=== PATIENT | male | born 1960 | race Caucasian/White ===

== ENCOUNTER 2016-06-08 14:56 | Emergency (ER) | payer BC ==
[~2016-06-08] VITALS: Ht 185.4 cm; Wt 93.9 kg
[~2016-06-08 14:56] MED LIST: ASPI81TA28 PO; ATOR-22 PO; ATV5X PO; CHOL200010 PO; FIBER PO; PANT40TA PO; SERT25TA PO; TRAM-10 PO
[2016-06-08 15:00] VITALS: TEMP 36.7; Ht 185.4 cm; Wt 93.9 kg
[2016-06-08] MEDS ORDERED: ONDANSETRON INJ 2 MG/ML 2 ML VIAL IV STA (15:25)
[2016-06-08] MEDS ORDERED: SODIUM CHLORIDE 0.9% 1000ML 1,000 ML IV STA (15:25)
[2016-06-08] MEDS ORDERED: MoRPHine SULFATE 10 MG/ML CARP/VIAL IV STA (15:25)
[2016-06-08] MEDS ORDERED: KETOROLAC TROMETHAMINE 30 MG/ML VIAL IV STA (15:25)
[2016-06-08] MEDS ORDERED: TAMSULOSIN HCL 0.4 MG CAP PO ONE (15:30)
[2016-06-08 15:35] LABS: BASO % 0.2 %; BASO ABS # 0.01 K/uL (0-0.2); COMPLETE YES; EOS % 1.6 %; HEMATOCRIT 42.1 % (42-52); IG% 0.2 %; LYMPH % 29.2 %; LYMPH ABS # 1.69 K/uL (1.2-3.4); MEAN CELL VOLUME 91.9 fL (80-100); MEAN CORPUSCULAR HEMOGLOBIN 32.1 pg (25-34); MEAN CORPUSCULAR HGB CONC 34.9 g/dl (32-36); MEAN PLATELET VOLUME 10.1 fL (7.4-10.4); MONO % 10.6 %; NEUT % 58.2 %; PLATELET COUNT 222 K/uL (130-400); RED BLOOD COUNT 4.58 M/uL (4.7-6.1); WHITE BLOOD COUNT 5.78 K/uL (4.8-10.8)
[2016-06-08 15:42] LABS: ALT/SGPT 30 U/L (12-78); AST/SGOT 22 U/L (15-37); BLOOD UREA NITROGEN 28 mg/dl (7-18); BUN/CREATININE RATIO 23.6 (10-20); CALCIUM 9.1 mg/dl (8.5-10.1); CARBON DIOXIDE 27 mmol/L (21-32); CHLORIDE 104 mmol/L (98-107); GLUCOSE 101 mg/dl (70-99); POTASSIUM 4.2 mmol/L (3.5-5.1); SODIUM 139 mmol/L (136-145)
[2016-06-08 15:44] LABS: URINE APPEARANCE CLEAR (CLEAR); URINE BILIRUBIN NEG (NEG); URINE COLOR YELLOW; URINE EPITHELIAL CELL AUTO 0-5 /lpf (0-5); URINE NITRITE NEG (NEG); URINE PH 7.5 (4.5-7.5); URINE SPECIFIC GRAVITY 1.017 (1.000-1.030); UROBILINOGEN NEG (NEG); ZZUR CULT IF INDIC CLEAN CATCH NO
[2016-06-08 15:45] LABS: ALKALINE PHOSPHATASE 69 U/L (45-117)
[2016-06-08] MEDS ORDERED: LPT/20 PO (15:46)
[2016-06-08] MEDS ORDERED: PRT/40 PO (15:46)
[2016-06-08] MEDS ORDERED: ZLF/50 PO (15:46)
[2016-06-08 15:47] LABS: MANUAL MICROSCOPIC REQUIRED? NO; REVIEW REQ? NO
--- NOTE | 2016-06-08 16:10 | DIAGNOSTIC IMAGING REPORT ---
CT SCAN OF THE ABDOMEN AND PELVIS WITHOUT IV CONTRAST CLINICAL HISTORY: Left flank pain. COMPARISON STUDY: Abdominal CT dated 02/02/2011. TECHNIQUE: CT scan of the abdomen and pelvis is performed from the lung bases to the proximal femora. Images are reviewed in the axial, sagittal, and coronal planes. IV contrast was not administered for this examination. Automated dose control exposure was utilized. CT DOSE: 1090.16 mGycm FINDINGS: Lung bases: The heart is enlarged and without pericardial effusion. The coronary arteries are densely calcified. There is a 4 mm pleural-based nodule at the left lung base. This is unchanged from 2011 and of doubtful significance. No airspace consolidation or pleural effusion is identified. There is dependent atelectasis. There is a small hiatal hernia. Liver: The unenhanced liver is normal in size, contour, and attenuation. There is no intrahepatic biliary ductal dilatation. Gallbladder: Unremarkable. Spleen: Normal in size and attenuation. Pancreas: Unremarkable. Adrenal glands: Unremarkable. Kidneys: The unenhanced kidneys are normal in size and without hydronephrosis. There are at least 3 nonobstructing left renal calculi and at least 5 nonobstructing right renal calculi measuring up to 3 mm. There is no evidence of contour deforming renal mass lesion. Abdominal vasculature: The abdominal aorta is normal in course and caliber noting mild atherosclerotic calcification. Bowel: The small bowel and colon are normal in course and caliber. There is mild sigmoid diverticulosis without CT evidence of acute diverticulitis. The appendix is not clearly identified. Peritoneum: There is no intraperitoneal free air or abdominal ascites. Lymphadenopathy: None. Pelvic viscera: The bladder, prostate, and seminal vesicles are normal as visualized.. Surgical clips are noted along the spermatic cord. Skeletal structures: No lytic or blastic lesions are seen. There is mild/moderate lumbar sacral spondylosis. IMPRESSION: 1. There are no acute infectious or inflammatory findings in the abdomen or pelvis. 2. Bilateral nonobstructing renal calculi are identified. There is no obstructing renal calculus or hydronephrosis seen. 3. Cardiomegaly. 4. Colonic diverticulosis without CT evidence of acute diverticulitis. 5. Additional findings as above. Electronically signed by: Eduardo Eubanks M.D. 06/08/2016 4:08 PM Dictated Date/Time: 06/08/2016 4:00 PM
[2016-06-08] MEDS ORDERED: DICY20TA35 PO (16:31)
--- NOTE | 2016-06-08 16:32 | EMERGENCY ROOM VISIT NOTE ---
History First contact with patient: 15:05 Chief Complaint: ABDOMINAL PAIN Stated Complaint: KIDNEY STONE Nursing Triage Summary: pt reports abdominal pain LLflank X 3 days , denies NV , or urinary sx History of Present Illness The patient is a 56 year old male who presents to the Emergency Room with complaints of left flank pain intermittently over the past 3 days. The patient denies any urinary symptoms of frequency, urgency, dysuria or hematuria. The patient admits to slight nausea but denies any vomiting. The patient does admit to having loose bowel movements 3-4 day for the past several days. The patient does admit that he has IBS it is under a lot of stress lately. This is not that abnormal for the patient. He has had colonoscopies in the past without any evidence of diverticulosis. The patient denies any fever. Review of Systems 10 system review was performed and was negative unless stated otherwise history of present illness. Past Medical/Surgical History Medical Problems: (1) Esophageal dysmotility (2) Gastroesophageal reflux disease (3) Kidney stone Social History Smoking Status: Former Smoker Alcohol Use: occasionally Marital Status: Occupation Status: employed Current/Historical Medications Scheduled Aspirin (Aspirin Ec), 81 MG PO QPM Atorvastatin (Atorvastatin Calcium), 20 MG PO HS Cholecalciferol (Vitamin D), 2,000 INTER.UNIT PO QAM Fiber Laxative (Fiber Laxative), 1 TAB PO DAILY Pantoprazole (Pantoprazole Sodium), 40 MG PO BID Sertraline HCl (Sertraline HCl), 50 MG PO DAILY Scheduled PRN Lorazepam (Lorazepam), 0.5 MG PO DAILY PRN for Anxiety Allergies Coded Allergies: Sulfa Antibiotics (Verified Allergy, Severe, SEVERE HIVES/ITCHING, 06/08/16 ) Physical Exam Vital Signs Date Time Temp Pulse Resp B/P Pulse Ox O2 Delivery O2 Flow Rate FiO2 06/08/16 15:00 36.7 67 18 178/106 98 Room Air Physical Exam GENERAL: 56-year-old white male appears in no acute distress. MENTAL Status: Alert and oriented 3. EYES: No icterus noted MOUTH: Mucosa is moist NECK: Supple, no lymphadenopathy noted. No carotid bruits noted. LUNGS: Clear auscultation without wheezes rales or rhonchi. CARDIAC: Regular rate and rhythm without murmur. Pulses is full and equal throughout. BACK: No CVA tenderness noted. ABDOMEN: Positive bowel sounds all 4 quadrants. Soft, nontender to palpation without organomegaly or masses. EXTREMITIES: No cyanosis or edema noted. Medical Decision & Procedures ER Provider Diagnostic Interpretation: CT SCAN OF THE ABDOMEN AND PELVIS WITHOUT IV CONTRAST CLINICAL HISTORY: Left flank pain. COMPARISON STUDY: Abdominal CT dated 02/02/2011. TECHNIQUE: CT scan of the abdomen and pelvis is performed from the lung bases to the proximal femora. Images are reviewed in the axial, sagittal, and coronal planes. IV contrast was not administered for this examination. Automated dose control exposure was utilized. CT DOSE: 1090.16 mGycm FINDINGS: Lung bases: The heart is enlarged and without pericardial effusion. The coronary arteries are densely calcified. There is a 4 mm pleural-based nodule at the left lung base. This is unchanged from 2010 and of doubtful significance. No airspace consolidation or pleural effusion is identified. There is dependent atelectasis. There is a small hiatal hernia. Liver: The unenhanced liver is normal in size, contour, and attenuation. There is no intrahepatic biliary ductal dilatation. Gallbladder: Unremarkable. Spleen: Normal in size and attenuation. Pancreas: Unremarkable. Adrenal glands: Unremarkable. Kidneys: The unenhanced kidneys are normal in size and without hydronephrosis. There are at least 3 nonobstructing left renal calculi and at least 5 nonobstructing right renal calculi measuring up to 3 mm. There is no evidence of contour deforming renal mass lesion. Abdominal vasculature: The abdominal aorta is normal in course and caliber noting mild atherosclerotic calcification. Bowel: The small bowel and colon are normal in course and caliber. There is mild sigmoid diverticulosis without CT evidence of acute diverticulitis. The appendix is not clearly identified. Peritoneum: There is no intraperitoneal free air or abdominal ascites. Lymphadenopathy: None. Pelvic viscera: The bladder, prostate, and seminal vesicles are normal as visualized.. Surgical clips are noted along the spermatic cord. Skeletal structures: No lytic or blastic lesions are seen. There is mild/moderate lumbar sacral spondylosis. IMPRESSION: 1. There are no acute infectious or inflammatory findings in the abdomen or pelvis. 2. Bilateral nonobstructing renal calculi are identified. There is no obstructing renal calculus or hydronephrosis seen. 3. Cardiomegaly. 4. Colonic diverticulosis without CT evidence of acute diverticulitis. 5. Additional findings as above. Electronically signed by: Eduardo Eubanks M.D. 06/08/2016 4:08 PM Laboratory Results 06/08/16 15:00 Red Blood Count 4.58, Mean Corpuscular Volume 91.9, Mean Corpuscular Hemoglobin 32.1, Mean Corpuscular Hemoglobin Concent 34.9, Mean Platelet Volume 10.1, Neutrophils (%) (Auto) 58.2, Lymphocytes (%) (Auto) 29.2, Monocytes (%) (Auto) 10.6, Eosinophils (%) (Auto) 1.6, Basophils (%) (Auto) 0.2, Neutrophils # (Auto ) 3.37, Lymphocytes # (Auto) 1.69, Monocytes # (Auto) 0.61, Eosinophils # (Auto ) 0.09, Basophils # (Auto) 0.01 06/08/16 15:00 Test 06/08/16 15:00 06/08/16 15:10 White Blood Count 5.78 K/uL (4.8-10.8) Red Blood Count 4.58 M/uL (4.7-6.1) Hemoglobin 14.7 g/dL (14.0-18.0) Hematocrit 42.1 % (42-52) Mean Corpuscular Volume 91.9 fL (80-100) Mean Corpuscular Hemoglobin 32.1 pg (25-34) Mean Corpuscular Hemoglobin Concent 34.9 g/dl (32-36) Platelet Count 222 K/uL (130-400) Mean Platelet Volume 10.1 fL (7.4-10.4) Neutrophils (%) (Auto) 58.2 % Lymphocytes (%) (Auto) 29.2 % Monocytes (%) (Auto) 10.6 % Eosinophils (%) (Auto) 1.6 % Basophils (%) (Auto) 0.2 % Neutrophils # (Auto) 3.37 K/uL (1.4-6.5) Lymphocytes # (Auto) 1.69 K/uL (1.2-3.4) Monocytes # (Auto) 0.61 K/uL (0.11-0.59) Eosinophils # (Auto) 0.09 K/uL (0-0.5) Basophils # (Auto) 0.01 K/uL (0-0.2) RDW Standard Deviation 42.0 fL (36.4-46.3) RDW Coefficient of Variation 12.5 % (11.5-14.5) Immature Granulocyte % (Auto) 0.2 % Immature Granulocyte # (Auto) 0.01 K/uL (0.00-0.02) Anion Gap 8.0 mmol/L (3-11) Est Creatinine Clear Calc Drug Dose 75.8 ml/min Estimated GFR () 76.8 Estimated GFR (Non- 66.3 BUN/Creatinine Ratio 23.6 (10-20) Calcium Level 9.1 mg/dl (8.5-10.1) Total Bilirubin 0.3 mg/dl (0.2-1) Direct Bilirubin < 0.1 mg/dl (0-0.2) Aspartate Amino Transf (AST/SGOT) 22 U/L (15-37) Alanine Aminotransferase (ALT/SGPT) 30 U/L (12-78) Alkaline Phosphatase 69 U/L (45-117) Total Protein 7.7 gm/dl (6.4-8.2) Albumin 4.2 gm/dl (3.4-5.0) Lipase 284 U/L (73-393) Urine Color YELLOW Urine Appearance CLEAR (CLEAR) Urine pH 7.5 (4.5-7.5) Urine Specific Allyn 1.017 (1.000-1.030) Urine Protein NEG (NEG) Urine Glucose (UA) NEG (NEG) Urine Ketones NEG (NEG) Urine Occult Blood NEG (NEG) Urine Nitrite NEG (NEG) Urine Bilirubin NEG (NEG) Urine Urobilinogen NEG (NEG) Urine Leukocyte Esterase TRACE (NEG) Urine WBC (Auto) 1-5 /hpf (0-5) Urine RBC (Auto) 0-4 /hpf (0-4) Urine Hyaline Casts (Auto) 0 /lpf (0-5) Urine Epithelial Cells (Auto) 0-5 /lpf (0-5) Urine Bacteria (Auto) NEG (NEG) Medications Administered Medications (Trade) Dose Ordered Sig/Humphrey Route Start Time Stop Time Status Last Admin Dose Admin Sodium Chloride (Nss 1000ml) 1,000 ml @ 999 mls/hr Q1H1M STAT IV 06/08/16 15:25 06/08/16 16:25 DC 06/08/16 15:43 999 MLS/HR Ketorolac Tromethamine (Toradol Inj) 30 mg NOW STAT IV 06/08/16 15:25 06/08/16 15:27 DC 06/08/16 15:43 30 MG Morphine Sulfate (MoRPHine SULFATE INJ) 6 mg NOW STAT IV 06/08/16 15:25 06/08/16 15:27 DC 06/08/16 15:43 6 MG Ondansetron HCl (Zofran Inj) 4 mg NOW STAT IV 06/08/16 15:25 06/08/16 15:27 DC 06/08/16 15:42 4 MG Tamsulosin HCl (Flomax Cap) 0.4 mg NOW ONCE PO 06/08/16 15:30 06/08/16 15:31 DC 06/08/16 15:43 0.4 MG ED Course The patient was evaluated. IV access was obtained. The patient was given 1 L normal saline wide-open. CBC and differential, renal profile, LFTs and lipase levels was ordered. Urinalysis was ordered. The patient was given Toradol 30 mg IV, morphine 6 mg IV, Zofran 4 mg IV and Flomax 0.4 mg by mouth. The patient 's labs are reviewed. The patient's BUN was slightly elevated otherwise labs are unremarkable. Urinalysis was negative. CT stone study was ordered and interpreted by the radiologist as above without any evidence of ureteral calculi or hydronephrosis. There were multiple renal calculi bilaterally. There is diverticulosis without any evidence of diverticulitis. The patient was informed of the findings. The patient was discharged home in stable condition. Medical Decision Differential diagnosis include UTI, pyelonephritis, ureteral calculi, diverticulitis, colitis, IBS Impression Primary Impression: IBS (irritable bowel syndrome) Additional Impression: Dehydration Departure Information Dispostion Home / Self-Care Condition GOOD Prescriptions Dicyclomine Hcl (BENTYL) 20 Mg Tab 20 MG PO Q8 for Diarrhea, #20 TAB Prov: Nikki Bishop PA-C 06/08/16 Referrals RV. Alvarenga MD (PCP) Forms Call Back Authorization, HOME CARE DOCUMENTATION FORM, IMPORTANT VISIT INFORMATION Patient Instructions Dehydration, My [facility] Additional Instructions Push fluids. Take Bentyl as needed for cramping and diarrhea. If symptoms persist or worsen, follow-up with your family doctor. Problem Qualifiers Primary Impression: IBS (irritable bowel syndrome) Irritable bowel syndrome type: with diarrhea Qualified Codes: K58.0 - Irritable bowel syndrome with diarrhea
[2016-06-08 16:35] VITALS: BP 154/90; PULSE 68; O2SAT 97
== END 2016-06-08 16:42 | disposition home or self-care (01) ==
LOC: C.EDB 14:57 → C.EDC 16:42
DX: K58.9 Irritable bowel syndrome, unspecified (principal); E86.0 Dehydration; K21.9 Gastro-esophageal reflux disease without esophagitis; K22.4 Dyskinesia of esophagus; Z87.442 Personal history of urinary calculi; Z79.82 Long term (current) use of aspirin; Z79.899 Other long term (current) drug therapy; Z87.891 Personal history of nicotine dependence; Z88.2 Allergy status to sulfonamides

== ENCOUNTER → 2016-08-10 | Outpatient (CLI) | payer BC ==
[~2016-08-10] MED LIST changes: -ATOR-22 PO; +LPT/20 PO; +ONDA4TAB10 SL; +OXYC1TAB3 PO; -PANT40TA PO; +POLY335019 PO; +PRT/40 PO; -SERT25TA PO; -TRAM-10 PO; +ZLF/50 PO
--- NOTE | 2016-08-10 08:49 | DIAGNOSTIC IMAGING REPORT ---
UPPER GI SERIES AND SMALL BOWEL FOLLOW-THROUGH CLINICAL HISTORY: Abdominal pain. Esophagitis. Hiatal hernia. COMPARISON STUDY: Upper GI series and small bowel follow-through February 25, 2011. FLUOROSCOPY TIME: 3.7 minutes. FINDINGS: 35 fluoroscopic images were obtained. There was mild to moderate esophageal dysmotility. No esophageal stricture was identified. There was mild mucosal irregularity of the mid to distal esophagus. This may reflect esophagitis. No hiatal hernia was identified. No reflux was elicited. Mild gastric fold thickening was noted. Duodenum was normal. Transit time to the cecum was normal at 50 minutes. The terminal ileum was not well visualized on this exam. Jejunal and ileal fold patterns were normal. IMPRESSION: 1. Gastric fold thickening. While nonspecific, this may reflect gastritis. 2. Mild mucosal irregularity the mid to distal esophagus which may reflect esophagitis. No esophageal stricture. 3. No evidence of small bowel obstruction. Normal small bowel fold pattern. 4. Mild to moderate esophageal dysmotility. Electronically signed by: Michael Celis M.D. 08/10/2016 8:48 AM Dictated Date/Time: 08/10/2016 8:45 AM
[2016-08-10 09:43] LABS: ALT/SGPT 29 U/L (12-78); BLOOD UREA NITROGEN 21 mg/dl (7-18); BUN/CREATININE RATIO 17.5 (10-20); CALCIUM 9.5 mg/dl (8.5-10.1); CARBON DIOXIDE 30 mmol/L (21-32); CHLORIDE 103 mmol/L (98-107); CHOLESTEROL 227 mg/dl (0-200); GLUCOSE 103 mg/dl (70-99); POTASSIUM 4.3 mmol/L (3.5-5.1); SODIUM 139 mmol/L (136-145)
[2016-08-10 09:46] LABS: ALB/GLOB RATIO 1.2 (0.9-2); ALKALINE PHOSPHATASE 69 U/L (45-117); AST/SGOT 25 U/L (15-37); CHOLESTEROL/HDL RATIO 3.7; HDL CHOLESTEROL 61 mg/dl; LDL CHOLESTEROL CALCULATED 111 mg/dl; TRIGLYCERIDES 274 mg/dl (0-150); VERY LOW DENSITY LIPOPROT CALC 55 mg/dl
== END | disposition home or self-care (01) ==
LOC: C.RAD 06:18
PROVIDERS: ATTEND Registered Nurse
DX: K20.9 Esophagitis, unspecified (principal); K44.9 Diaphragmatic hernia without obstruction or gangrene; R05 Cough; R10.13 Epigastric pain; E78.00 Pure hypercholesterolemia, unspecified; K31.89 Other diseases of stomach and duodenum; K22.4 Dyskinesia of esophagus

== ENCOUNTER 2017-01-02 11:40 | Emergency (ER) | payer BC ==
[~2017-01-02] VITALS: Ht 185.4 cm; Wt 91.9 kg
[~2017-01-02 11:40] MED LIST changes: -ONDA4TAB10 SL; -OXYC1TAB3 PO; -POLY335019 PO
[2017-01-02 11:46] VITALS: TEMP 36.9; Ht 185.4 cm; Wt 91.9 kg
[2017-01-02] MEDS ORDERED: SODIUM CHLORIDE 0.9% 1000ML 1,000 ML IV STA (12:08)
[2017-01-02] MEDS ORDERED: ONDANSETRON INJ 2 MG/ML 2 ML VIAL IV STA (12:08)
[2017-01-02] MEDS ORDERED: MoRPHine SULFATE 4 MG/ML 1 ML CARP\\VIAL IV PRN (12:15)
--- NOTE | 2017-01-02 12:17 | EMERGENCY ROOM VISIT NOTE ---
History Report prepared by Reilly: Sharona Guadalupe Under the Supervision of: Awa NavaO. First contact with patient: 12:04 Chief Complaint: ABDOMINAL PAIN Stated Complaint: BLOATING PAIN IN BELLY, NO BM'S Nursing Triage Summary: pt to the ED with c/o abd pain that is all over with chills and last BM was yesterday pt is concerned bc he feels like he did before with a previous bowel obstruction History of Present Illness The patient is a 56 year old male who presents to the Emergency Room with complaints of constant abdominal pain beginning yesterday. The patient states that he has a history of bowel obstruction and has been hospitalized 2 times before. He reports that he has been having similar symptoms to his previous obstruction and has had body aches and chills. He denies any rectal bleeding, vomiting, and constipation. The patient states that he had a restless night last night and has been having dry heaves that are not unusual for him due to his history of esophageal varices. He complains of a productive cough and notes that he had 2 bowel movements yesterday and none today. He reports a history of appendicitis and hernia repair. Source of History: patient Onset: last night Position: abdomen Timing: constant Associated Symptoms: + chills, No vomiting Note: Pt complains of aches. He denies any constipation and rectal pain. Review of Systems See HPI for pertinent positives & negatives. A total of 10 systems reviewed and were otherwise negative. Past Medical & Surgical Medical Problems: (1) Esophageal dysmotility (2) Gastroesophageal reflux disease (3) Kidney stone Family History No pertinent family history stated. Social History Smoking Status: Former Smoker Alcohol Use: occasionally Marital Status: Occupation Status: employed Current/Historical Medications Scheduled Aspirin (Aspirin Ec), 81 MG PO QPM Atorvastatin (Atorvastatin Calcium), 20 MG PO HS Cholecalciferol (Vitamin D), 2,000 INTER.UNIT PO QAM Fiber Laxative (Fiber Laxative), 1 TAB PO DAILY Ondasetron Odt (Zofran Odt), 4 MG SL Q6H Pantoprazole (Pantoprazole Sodium), 40 MG PO BID Polyethylene Glycol 3350 (Miralax), 17 GM PO DAILY Sertraline HCl (Sertraline HCl), 50 MG PO DAILY Scheduled PRN Lorazepam (Lorazepam), 0.5 MG PO DAILY PRN for Anxiety Oxycodone Immediate Rel Tab (Roxicodone Ir), 1-2 TAB PO Q4H PRN for Severe Pain Allergies Coded Allergies: Sulfa Antibiotics (Verified Allergy, Severe, SEVERE HIVES/ITCHING, 06/08/16 ) Physical Exam Vital Signs Date Time Temp Pulse Resp B/P (MAP) Pulse Ox O2 Delivery O2 Flow Rate FiO2 01/02/17 13:50 84 18 153/98 97 01/02/17 12:29 84 01/02/17 11:46 36.9 99 18 171/102 98 Physical Exam GENERAL: Patient is awake, alert, and in no acute distress. Patient is resting comfortably and showing no signs of anxiety EYES: The conjunctivae are clear. The pupils are round and reactive. EARS, NOSE, MOUTH AND THROAT: The nose is without any evidence of any deformity. Mucous membranes are moist tongue is midline NECK: The neck is nontender and supple. RESPIRATORY: Lung sounds diminished throughout, scattered rhonchi, no tachypnea or conversational dyspnea. CARDIOVASCULAR: Regular rate and rhythm noted there no murmurs rubs or gallops normal S1 normal S2 GASTROINTESTINAL: The abdomen is moderately distended but soft. Bowel sounds are present in all quadrants. Abdomen is nontender PELVIS: The Pelvis is stable. No tenderness to palpation is noted. BACK: No midline tenderness or or step-off noted range of motion in flexion extension as well as rotation no signs of muscle spasm noted MUSCULOSKELETAL/EXTREMITIES: There is no evidence of gross deformity full range of motion is noted in the hips and shoulders SKIN: There is no obvious evidence of any rash. There are no petechiae, pallor or cyanosis noted. NEUROLOGIC: Patient is awake alert and oriented x3 Medical Decision & Procedures ER Provider Diagnostic Interpretation: Radiology results as stated below per my review and radiologist interpretation: SINGLE VIEW CHEST FINDINGS: An AP, portable, upright chest radiograph is compared to study dated 10/22/2014 and correlated with chest CT dated 05/20/2015. The examination is degraded by portable technique and patient rotation. The cardiomediastinal silhouette is unremarkable. The lungs and pleural spaces are clear. No pneumothorax is seen. The bony thorax is grossly intact. IMPRESSION: No active disease in the chest. Electronically signed by: Eduardo Eubanks M.D. 01/02/2017 12:57 PM Dictated Date/Time: 01/02/2017 12:[address] SCAN OF THE ABDOMEN AND PELVIS WITHOUT IV CONTRAST FINDINGS: Lung bases: The heart is top normal in size and without pericardial effusion. There are coronary artery calcifications. There is a 4 mm pleural-based nodule at the left lung base on image #14. This is unchanged from 2011 and of doubtful significance. No airspace consolidation or pleural effusion is identified. There is dependent atelectasis. There is a small hiatal hernia. Liver: The unenhanced liver is normal in size, contour, and attenuation. There is no intrahepatic biliary ductal dilatation. Gallbladder: Unremarkable. Spleen: Normal in size and attenuation. Pancreas: Unremarkable. Adrenal glands: Unremarkable. Kidneys: The unenhanced kidneys are normal in size and without hydronephrosis. There are at least 2 nonobstructing left renal calculi and at least 4 nonobstructing right renal calculi measuring up to 3 mm. There is no evidence of contour deforming renal mass lesion. Abdominal vasculature: The abdominal aorta is normal in course and caliber noting mild to moderate atherosclerotic calcification. Bowel: The small bowel and colon are normal in course and caliber. There is mild sigmoid diverticulosis without CT evidence of acute diverticulitis. The appendix is not identified and reported surgically absent. Peritoneum: There is no intraperitoneal free air or abdominal ascites. Lymphadenopathy: None. Pelvic viscera: The bladder, prostate, and seminal vesicles are normal as visualized.. Surgical clips are noted along the spermatic cord. Skeletal structures: No lytic or blastic lesions are seen. There is mild to moderate lumbosacral spondylosis. IMPRESSION: 1. Suboptimal examination without oral and IV contrast. 2. There are no acute infectious or inflammatory findings in the abdomen or pelvis. 3. There are small bilateral nonobstructing renal calculi. 4. Colonic diverticulosis without CT evidence of acute diverticulitis. 5. Additional findings as above. Electronically signed by: Eduardo Eubanks M.D. 01/02/2017 12:52 PM Dictated Date/Time: 01/02/2017 12:43 PM Laboratory Results 01/02/17 12:21 Red Blood Count 4.38, Mean Corpuscular Volume 93.8, Mean Corpuscular Hemoglobin 33.1, Mean Corpuscular Hemoglobin Concent 35.3, Mean Platelet Volume 10.1, Neutrophils (%) (Auto) 78.1, Lymphocytes (%) (Auto) 10.2, Monocytes (%) (Auto) 11.0, Eosinophils (%) (Auto) 0.2, Basophils (%) (Auto) 0.3, Neutrophils # (Auto ) 4.60, Lymphocytes # (Auto) 0.60, Monocytes # (Auto) 0.65, Eosinophils # (Auto ) 0.01, Basophils # (Auto) 0.02 01/02/17 12:21 Test 01/02/17 12:21 01/02/17 13:05 White Blood Count 5.89 K/uL (4.8-10.8) Red Blood Count 4.38 M/uL (4.7-6.1) Hemoglobin 14.5 g/dL (14.0-18.0) Hematocrit 41.1 % (42-52) Mean Corpuscular Volume 93.8 fL (80-100) Mean Corpuscular Hemoglobin 33.1 pg (25-34) Mean Corpuscular Hemoglobin Concent 35.3 g/dl (32-36) Platelet Count 174 K/uL (130-400) Mean Platelet Volume 10.1 fL (7.4-10.4) Neutrophils (%) (Auto) 78.1 % Lymphocytes (%) (Auto) 10.2 % Monocytes (%) (Auto) 11.0 % Eosinophils (%) (Auto) 0.2 % Basophils (%) (Auto) 0.3 % Neutrophils # (Auto) 4.60 K/uL (1.4-6.5) Lymphocytes # (Auto) 0.60 K/uL (1.2-3.4) Monocytes # (Auto) 0.65 K/uL (0.11-0.59) Eosinophils # (Auto) 0.01 K/uL (0-0.5) Basophils # (Auto) 0.02 K/uL (0-0.2) RDW Standard Deviation 41.1 fL (36.4-46.3) RDW Coefficient of Variation 12.0 % (11.5-14.5) Immature Granulocyte % (Auto) 0.2 % Immature Granulocyte # (Auto) 0.01 K/uL (0.00-0.02) Anion Gap 7.0 mmol/L (3-11) Est Creatinine Clear Calc Drug Dose 75.8 ml/min Estimated GFR () 76.8 Estimated GFR (Non- 66.3 BUN/Creatinine Ratio 13.8 (10-20) Calcium Level 9.2 mg/dl (8.5-10.1) Total Bilirubin 1.3 mg/dl (0.2-1) Direct Bilirubin 0.3 mg/dl (0-0.2) Aspartate Amino Transf (AST/SGOT) 25 U/L (15-37) Alanine Aminotransferase (ALT/SGPT) 34 U/L (12-78) Alkaline Phosphatase 68 U/L (45-117) Total Protein 7.5 gm/dl (6.4-8.2) Albumin 4.1 gm/dl (3.4-5.0) Lipase 178 U/L (73-393) Urine Color YELLOW Urine Appearance CLEAR (CLEAR) Urine pH 6.0 (4.5-7.5) Urine Specific [place] 1.012 (1.000-1.030) Urine Protein NEG (NEG) Urine Glucose (UA) NEG (NEG) Urine Ketones NEG (NEG) Urine Occult Blood NEG (NEG) Urine Nitrite NEG (NEG) Urine Bilirubin NEG (NEG) Urine Urobilinogen NEG (NEG) Urine Leukocyte Esterase NEG (NEG) Laboratory results per my review. Medications Administered Medications (Trade) Dose Ordered Sig/Humphrey Route Start Time Stop Time Status Last Admin Dose Admin Sodium Chloride 1,000 ml @ 999 mls/hr Q1H1M STAT IV 01/02/17 12:08 01/02/17 13:08 DC 01/02/17 12:25 999 MLS/HR Ondansetron HCl (Zofran Inj) 4 mg NOW STAT IV 01/02/17 12:08 01/02/17 12:09 DC 01/02/17 12:29 4 MG Morphine Sulfate (MoRPHine SULFATE INJ) 4 mg Q15M PRN IV 01/02/17 12:15 01/02/17 14:35 DC 01/02/17 12:30 4 MG ED Course 1204: The patient was evaluated in room C7. A complete history and physical examination were performed. 1208: Zofran Inj 4mg IV, NSS 1,000 ml @ 999 mls/hr IV. 1215: Morphine Sulfate 4mg PRN IV pain. 1329: I reevaluated and updated the patient. 1335: Upon reevaluation, the patient is doing well. I discussed the results and treatment plan with the patient. He verbalized agreement of the treatment plan. The patient was discharged home. Medical Decision Differential diagnosis: Etiologies such as appendicitis, diverticulitis, PUD, biliary pathology, UTI, pancreatitis, obstruction, mesenteric ischemia, aortic pathology, infections, inflammatory bowel disease, renal colic, as well as others were entertained. Nursing notes reviewed. The patient is a 56-year-old male who presented to the emergency department for an evaluation of abdominal pain. The patient states he's noticed abdominal distention and has a history of small bowel obstruction in the past. The patient 's abdominal exam was not consistent with an acute surgical abdomen. On CT he does not have signs of obstruction but does have some degree of constipation. He was treated with IV fluids IV pain medicine and IV antiemetics. On subsequent reevaluation he was feeling much better. I discussed the patient's laboratory and radiographic studies with him. He was encouraged to rest and follow-up with his family doctor this week for reevaluation. Otherwise she was encouraged to continue all medications as prescribed and return to the emergency department immediately if symptoms change worsen or the need arises. [place] Drug Monitoring Program Search Results: patient reviewed within database, no issues identified Medication Reconcilliation Current Medication List: was personally reviewed by me Blood Pressure Screening Patient's blood pressure: Elevated blood pressure Blood pressure disposition: Elevated BP felt to be situational Impression Primary Impression: Abdominal pain Scribe Attestation The scribe's documentation has been prepared under my direction and personally reviewed by me in its entirety. I confirm that the note above accurately reflects all work, treatment, procedures, and medical decision making performed by me. Departure Information Dispostion Being Evaluated By Hospitalist Prescriptions Polyethylene Glycol 3350 (MIRALAX) 1 Pow Pow 17 GM PO DAILY, #527 GM Prov: John Worrell, DO 01/02/17 Ondasetron Odt (ZOFRAN ODT) 4 Mg Tab 4 MG SL Q6H for Nausea, #15 TAB Prov: John Worrell, DO 01/02/17 Oxycodone Immediate Rel Tab (ROXICODONE IR) 5 Mg Tab 1-2 TAB PO Q4H Y for Severe Pain, #24 TAB Prov: John Worrell, DO 01/02/17 Referrals No Doctor, Assigned (PCP) Forms Call Back Authorization, HOME CARE DOCUMENTATION FORM, IMPORTANT VISIT INFORMATION Patient Instructions Abdominal Pain, My [facility] Additional Instructions Call your family to schedule a follow-up appointment. Continue all medications as prescribed. Drink plenty clear liquids. Return to the emergency department immediately if symptoms change worsen or the need arises. Problem Qualifiers Primary Impression: Abdominal pain Abdominal location: generalized Qualified Codes: R10.84 - Generalized abdominal pain
[2017-01-02 12:32] LABS: BASO % 0.3 %; BASO ABS # 0.02 K/uL (0-0.2); COMPLETE YES; EOS % 0.2 %; HEMATOCRIT 41.1 % (42-52); IG% 0.2 %; LYMPH % 10.2 %; MEAN CELL VOLUME 93.8 fL (80-100); MEAN CORPUSCULAR HEMOGLOBIN 33.1 pg (25-34); MEAN CORPUSCULAR HGB CONC 35.3 g/dl (32-36); MEAN PLATELET VOLUME 10.1 fL (7.4-10.4); NEUT % 78.1 %; PLATELET COUNT 174 K/uL (130-400); RED BLOOD COUNT 4.38 M/uL (4.7-6.1); WHITE BLOOD COUNT 5.89 K/uL (4.8-10.8)
[2017-01-02 12:53] LABS: BUN/CREATININE RATIO 13.8 (10-20); CALCIUM 9.2 mg/dl (8.5-10.1); CREATININE 1.2 mg/dl (0.60-1.40); POTASSIUM 3.9 mmol/L (3.5-5.1)
--- NOTE | 2017-01-02 12:53 | DIAGNOSTIC IMAGING REPORT ---
CT SCAN OF THE ABDOMEN AND PELVIS WITHOUT IV CONTRAST CLINICAL HISTORY: Bloating. Generalized abdominal pain. COMPARISON STUDY: Abdominal CT dated 06/08/2016 and 02/02/2011. TECHNIQUE: CT scan of the abdomen and pelvis is performed from the lung bases to the proximal femora. Images are reviewed in the axial, sagittal, and coronal planes. IV contrast was not administered for this examination as per the referring clinician. Note that the examination was performed in suboptimal fashion without oral and IV contrast. Automated dose control exposure was utilized. CT DOSE: 475.87 mGy.cm FINDINGS: Lung bases: The heart is top normal in size and without pericardial effusion. There are coronary artery calcifications. There is a 4 mm pleural-based nodule at the left lung base on image #14. This is unchanged from 2011 and of doubtful significance. No airspace consolidation or pleural effusion is identified. There is dependent atelectasis. There is a small hiatal hernia. Liver: The unenhanced liver is normal in size, contour, and attenuation. There is no intrahepatic biliary ductal dilatation. Gallbladder: Unremarkable. Spleen: Normal in size and attenuation. Pancreas: Unremarkable. Adrenal glands: Unremarkable. Kidneys: The unenhanced kidneys are normal in size and without hydronephrosis. There are at least 2 nonobstructing left renal calculi and at least 4 nonobstructing right renal calculi measuring up to 3 mm. There is no evidence of contour deforming renal mass lesion. Abdominal vasculature: The abdominal aorta is normal in course and caliber noting mild to moderate atherosclerotic calcification. Bowel: The small bowel and colon are normal in course and caliber. There is mild sigmoid diverticulosis without CT evidence of acute diverticulitis. The appendix is not identified and reported surgically absent. Peritoneum: There is no intraperitoneal free air or abdominal ascites. Lymphadenopathy: None. Pelvic viscera: The bladder, prostate, and seminal vesicles are normal as visualized.. Surgical clips are noted along the spermatic cord. Skeletal structures: No lytic or blastic lesions are seen. There is mild to moderate lumbosacral spondylosis. IMPRESSION: 1. Suboptimal examination without oral and IV contrast. 2. There are no acute infectious or inflammatory findings in the abdomen or pelvis. 3. There are small bilateral nonobstructing renal calculi. 4. Colonic diverticulosis without CT evidence of acute diverticulitis. 5. Additional findings as above. Electronically signed by: Eduardo Eubanks M.D. 01/02/2017 12:52 PM Dictated Date/Time: 01/02/2017 12:43 PM
--- NOTE | 2017-01-02 12:59 | DIAGNOSTIC IMAGING REPORT ---
SINGLE VIEW CHEST CLINICAL HISTORY: Generalized abdominal pain. FINDINGS: An AP, portable, upright chest radiograph is compared to study dated 10/22/2014 and correlated with chest CT dated 05/20/2015. The examination is degraded by portable technique and patient rotation. The cardiomediastinal silhouette is unremarkable. The lungs and pleural spaces are clear. No pneumothorax is seen. The bony thorax is grossly intact. IMPRESSION: No active disease in the chest. Electronically signed by: Eduardo Eubanks M.D. 01/02/2017 12:57 PM Dictated Date/Time: 01/02/2017 12:57 PM
[2017-01-02 13:21] LABS: URINE APPEARANCE CLEAR (CLEAR); URINE BILIRUBIN NEG (NEG); URINE COLOR YELLOW; URINE NITRITE NEG (NEG); URINE SPECIFIC GRAVITY 1.012 (1.000-1.030); UROBILINOGEN NEG (NEG)
[2017-01-02 13:24] LABS: MANUAL MICROSCOPIC REQUIRED? NO; REVIEW REQ? NO
[2017-01-02] MEDS ORDERED: POLY335019 PO (13:30)
[2017-01-02] MEDS ORDERED: OXYC1TAB3 PO (13:30)
[2017-01-02] MEDS ORDERED: ONDA4TAB10 SL (13:30)
[2017-01-02 13:50] VITALS: BP 153/98; PULSE 84; O2SAT 97
== END 2017-01-02 13:57 | disposition home or self-care (01) ==
LOC: C.EDB 11:44 → C.EDC 13:57
DX: R10.84 Generalized abdominal pain (principal); K59.00 Constipation, unspecified; I85.00 Esophageal varices without bleeding; K22.4 Dyskinesia of esophagus; K21.9 Gastro-esophageal reflux disease without esophagitis; Z87.442 Personal history of urinary calculi; Z87.891 Personal history of nicotine dependence; Z79.82 Long term (current) use of aspirin

== ENCOUNTER → 2017-01-10 | Outpatient (CLI) | payer BC ==
[~2017-01-10] MED LIST changes: +ONDA4TAB10 SL; +OXYC1TAB3 PO; +POLY335019 PO
--- NOTE | 2017-01-10 16:28 | DIAGNOSTIC IMAGING REPORT ---
RIGHT RIBS UNILATERAL WITH PA CHEST HISTORY: 56 years-old Male J20.9 Acute [id number] Right COMPARISON: Chest radiograph 01/02/2017 TECHNIQUE: Frontal view of the chest with 4 views of the right ribs FINDINGS: Cardiomediastinal and hilar silhouettes are within normal limits. There is no pneumothorax, pleural effusion or focal airspace consolidation. The bones appear to be grossly intact. Degenerative changes involve the bilateral shoulders. No acute displaced rib fracture identified. IMPRESSION: 1. No acute cardiopulmonary process. 2. No acute displaced rib fracture or pneumothorax. The above report was generated using voice recognition software. It may contain grammatical, syntax or spelling errors. Electronically signed by: Colin Albright M.D. 01/10/2017 4:27 PM Dictated Date/Time: 01/10/2017 4:24 PM
--- NOTE | 2017-01-10 16:32 | DIAGNOSTIC IMAGING REPORT ---
RIGHT SCAPULA HISTORY: 56 years-old Male M25.511 Right shoulder [id number] Right COMPARISON: Chest and rib radiographs of same day TECHNIQUE: 2 views of the right scapula. FINDINGS: The scapula, imaged right humerus and right clavicle are intact without acute fracture or dislocation. Moderate degenerative changes are present within the right AC joint with mild/moderate glenohumeral osteoarthritis. Imaged lung cunningham are clear. IMPRESSION: 1. No acute bony abnormality of the right scapula. 2. Degenerative changes about the right shoulder as above. The above report was generated using voice recognition software. It may contain grammatical, syntax or spelling errors. Electronically signed by: Colin Albright M.D. 01/10/2017 4:30 PM Dictated Date/Time: 01/10/2017 4:27 PM
== END | disposition home or self-care (01) ==
LOC: C.RAD1850 15:18
PROVIDERS: ATTEND Physician Assistant
DX: J20.9 Acute bronchitis, unspecified (principal); M25.511 Pain in right shoulder; M19.011 Primary osteoarthritis, right shoulder

== ENCOUNTER → 2017-01-18 | Outpatient (CLI) | payer BC ==
--- NOTE | 2017-01-18 18:27 | DIAGNOSTIC IMAGING REPORT ---
UPPER EXT JOINT WITHOUT CLINICAL HISTORY: 56 years-old Male with M25.511 Right shoulder painRight shoulder/scapular pain, tendern. Acute right shoulder pain without reported trauma. Initial exam. COMPARISON: Right scapula radiographs 01/10/2017. TECHNIQUE: Multiplanar, multi sequence MRI of the right shoulder was performed without intravenous contrast. FINDINGS: ROTATOR CUFF: No high-grade partial or full-thickness tear of the rotator cuff identified. Low-grade partial-thickness articular sided tear involves the mid insertional fibers of the supraspinatus, 6 x 8 mm in AP and transverse dimension. There is moderate supraspinatus tendinosis. There is severe tendinosis of the subscapularis tendon with low-grade partial thickness tearing noted involving the superior insertional fibers. Muscle signal and morphology is within normal limits without atrophy. BICEPS TENDON: There is moderate tendinosis of the intra-articular long head biceps tendon as seen on image 11 of the sagittal T2 series. There is high-grade split tear of the long head biceps tendon which originates as it enters the intertubercular groove and extends distally approximately 3.2 cm as seen on image 6 of the sagittal T2 series. Mild surrounding soft tissue edema is noted. LABRUM: There is fraying and likely chronic appearing tearing of the anterior superior and posterior inferior labrum without significant soft tissue edema, displaced fragment or para-labral cyst. GLENOHUMERAL JOINT: There is mild glenohumeral osteoarthritis without intra-articular loose body identified. Small joint effusion. ACROMIOCLAVICULAR JOINT: Moderate to severe osteoarthritis with capsular hypertrophy and marginal spurring. Trace subacromial/subdeltoid bursitis. OUTLET SPACES: The suprascapular notch and quadrilateral space are without obstructing or space occupying lesions. BONE MARROW: Subcortical cysts are noted involving the anterior and posterior facets of the greater tuberosity. Subcortical cystic changes are also noted involving the glenoid superiorly and base of the coracoid process SOFT TISSUES: The periarticular soft tissues are unremarkable. IMPRESSION: 1. Acute high-grade split tear of the long head biceps tendon originates just proximal to the intertubercular groove extending distally 3.2 cm. There is moderate tendinosis of the intra-articular long head biceps tendon. 2. Low-grade partial thickness articular sided tear of the mid insertional supraspinatus tendon with background moderate tendinosis. 3. Severe tendinosis of the subscapularis tendon with low-grade partial-thickness tear noted along the superior insertional fibers. 4. Mild glenohumeral osteoarthritis. 5. Moderate to severe acromioclavicular osteoarthritis with trace subacromial/subdeltoid bursitis. The above report was generated using voice recognition software. It may contain grammatical, syntax or spelling errors. Electronically signed by: Colin Albright M.D. 01/18/2017 6:26 PM Dictated Date/Time: 01/18/2017 6:04 PM
== END | disposition home or self-care (01) ==
LOC: C.MRI 16:45
PROVIDERS: ATTEND Physician Assistant
DX: S46.111A Strain of muscle, fascia and tendon of long head of biceps, right arm, initial encounter (principal); S46.811A Strain of other muscles, fascia and tendons at shoulder and upper arm level, right arm, initial encounter; X58.XXXA Exposure to other specified factors, initial encounter; M19.011 Primary osteoarthritis, right shoulder

== ENCOUNTER → 2017-02-10 | Outpatient (CLI) | payer BC ==
[2017-02-10 17:19] LABS: ALT/SGPT 35 U/L (12-78); BLOOD UREA NITROGEN 22 mg/dl (7-18); CALCIUM 9.1 mg/dl (8.5-10.1); CARBON DIOXIDE 26 mmol/L (21-32); CHLORIDE 106 mmol/L (98-107); GLUCOSE 136 mg/dl (70-99); POTASSIUM 4.2 mmol/L (3.5-5.1); SODIUM 140 mmol/L (136-145)
[2017-02-10 17:22] LABS: ALB/GLOB RATIO 1.2 (0.9-2); ALKALINE PHOSPHATASE 65 U/L (45-117); AST/SGOT 24 U/L (15-37)
== END | disposition home or self-care (01) ==
LOC: C.LAB1850 15:00
PROVIDERS: ATTEND Internal Medicine
DX: E78.00 Pure hypercholesterolemia, unspecified (principal)

== ENCOUNTER → 2017-04-01 | Outpatient (CLI) | payer BC ==
[~2017-04-01] MED LIST changes: +PANT40TA2 PO; -PRT/40 PO
--- NOTE | 2017-04-01 10:18 | DIAGNOSTIC IMAGING REPORT ---
(BARIUM SWALLOW) ESOPHAGUS CLINICAL HISTORY: K22.4 Esophageal [id number] Juares's [id number] COMPARISON STUDY: 06/16/2006 FLUOROSCOPY TIME: 1.0 minutes. FINDINGS: Patient initiated swallowing function well. Esophagus demonstrates a somewhat diminished motility. There is moderate gastroesophageal reflux. No significant mucosal lesions are appreciated. Patient ingested the barium tablet easily which passed easily to the stomach. IMPRESSION: 1. Normal swallowing function. 2. Moderately diminished esophageal motility with mild gastroesophageal reflux. The above report was generated using voice recognition software. It may contain grammatical, syntax or spelling errors. Electronically signed by: Ish Bishop M.D. 04/01/2017 9:14 AM Dictated Date/Time: 04/01/2017 9:12 AM
[2017-04-01 10:32] LABS: BASO % 0.4 %; BASO ABS # 0.02 K/uL (0-0.2); COMPLETE YES; EOS % 1.5 %; HEMATOCRIT 46.2 % (42-52); IG% 0.2 %; LYMPH % 26.5 %; LYMPH ABS # 1.23 K/uL (1.2-3.4); MEAN CELL VOLUME 96.3 fL (80-100); MEAN CORPUSCULAR HEMOGLOBIN 32.3 pg (25-34); MEAN CORPUSCULAR HGB CONC 33.5 g/dl (32-36); MEAN PLATELET VOLUME 10.9 fL (7.4-10.4); MONO % 8.6 %; NEUT % 62.8 %; PLATELET COUNT 239 K/uL (130-400); WHITE BLOOD COUNT 4.64 K/uL (4.8-10.8)
== END | disposition home or self-care (01) ==
LOC: C.RAD 08:05
PROVIDERS: ATTEND Registered Nurse
DX: K22.4 Dyskinesia of esophagus (principal); K22.70 Barrett's esophagus without dysplasia; K20.9 Esophagitis, unspecified; K21.9 Gastro-esophageal reflux disease without esophagitis

== ENCOUNTER → 2017-04-13 | Outpatient (CLI) | payer BC ==
--- NOTE | 2017-04-13 17:29 | DIAGNOSTIC IMAGING REPORT ---
L-SPINE FLEX/EXT BENDING MIN 6 HISTORY: 56 years-old Male X acute left-sided low back pain with sciatica COMPARISON: CT abdomen and pelvis 01/02/2017 TECHNIQUE: 5 views of the lumbar spine with additional lateral flexion and extension views for a total of 7 images FINDINGS: No acute fracture or subluxation identified. Moderate intervertebral disc space narrowing is seen at T11-T12, L1-L2, L3-L4 and L4-L5. Multilevel endplate spurring and facet arthropathy also noted. There is no subluxation with flexion or extension. No spondylolysis or spondylolisthesis. Mild convex left curvature of the lumbar spine. Mild degenerative changes are seen within the bilateral hips. Calcifications of the pelvis suggest vascular etiology. IMPRESSION: 1. No acute fracture or subluxation of the lumbar spine. 2. Multilevel degenerative changes as above. The above report was generated using voice recognition software. It may contain grammatical, syntax or spelling errors. Electronically signed by: Colin Albright M.D. 04/13/2017 5:28 PM Dictated Date/Time: 04/13/2017 5:25 PM
== END | disposition home or self-care (01) ==
LOC: C.RAD1850 16:31
PROVIDERS: ATTEND Internal Medicine
DX: M54.32 Sciatica, left side (principal)

== ENCOUNTER → 2017-06-22 | Outpatient (CLI) | payer OTHER ==
[~2017-06-22] MED LIST changes: +ELAS-1213 EXT; +HYDR-5688 PO; -LPT/20 PO; +LPT20 PO; -ONDA4TAB10 SL; -OXYC1TAB3 PO; -POLY335019 PO; -ZLF/50 PO
--- NOTE | 2017-06-22 09:03 | DIAGNOSTIC IMAGING REPORT ---
CHEST 2 VIEWS ROUTINE CLINICAL HISTORY: 57 years-old Male presenting with PRE OP TESTING. TECHNIQUE: PA and lateral views of the chest were obtained. COMPARISON: 01/02/2017. FINDINGS: Atherosclerosis of the aortic arch. Cardiac silhouette normal in size. Lungs and pleural spaces clear. Degenerative changes of the thoracic spine. Upper abdomen normal. IMPRESSION: 1. No acute cardiopulmonary disease. Electronically signed by: Carlos Merrill M.D. 06/22/2017 9:01 AM Dictated Date/Time: 06/22/2017 8:57 AM
[2017-06-22 10:44] LABS: INR 0.9 (0.9-1.1); PTT PATIENT 25.2 SECONDS (21.0-31.0)
[2017-06-22 11:07] LABS: HEMATOCRIT 44.1 % (42-52); HEMOGLOBIN 15.3 g/dL (14.0-18.0); MEAN CELL VOLUME 95.5 fL (80-100); MEAN CORPUSCULAR HEMOGLOBIN 33.1 pg (25-34); MEAN CORPUSCULAR HGB CONC 34.7 g/dl (32-36); MEAN PLATELET VOLUME 10.5 fL (7.4-10.4); PLATELET COUNT 226 K/uL (130-400); RED CELL DISTRIBUTION WIDTH CV 12.5 % (11.5-14.5); RED CELL DISTRIBUTION WIDTH SD 42.6 fL (36.4-46.3); WHITE BLOOD COUNT 5.69 K/uL (4.8-10.8)
== END | disposition home or self-care (01) ==
LOC: C.CPL 08:33
PROVIDERS: ATTEND Podiatrist Foot & Ankle Surgery
DX: Z01.812 Encounter for preprocedural laboratory examination (principal); Z01.810 Encounter for preprocedural cardiovascular examination; Z01.818 Encounter for other preprocedural examination

== ENCOUNTER → 2017-06-27 | Day surgery (SDC) | payer BC, OTHER ==
[2017-05-24 13:43] VITALS: Ht 185.4 cm; Wt 88.6 kg
[~2017-06-27] VITALS: Ht 185.4 cm; Wt 88.6 kg
[~2017-06-27] MED LIST changes: +CEFAZOLIN SOD 2000MG/15 ML IV PUSH IV ONE; +DEXAMETHASONE SOD INJ 4 MG/ML VIAL ONE; +FENTANYL CITRATE INJ 50 MCG/1 ML 2 ML VIAL ONE; +LACTATED RINGER'S 1000ML 1,000 ML IV SCH; +LIDOCAINE HCL 1% 20 ML VIAL ONE; +LIDOCAINE HCL 2% 2 ML VIAL (20MG/ML) ONE; +MIDAZOLAM HCL 1 MG/ML 2ML VIAL ONE; +ONDANSETRON INJ 2 MG/ML 2 ML VIAL ONE; +PROPOFOL IV EMULSION 10 MG/ML 20 ML VIAL IV ONE
--- NOTE | 2017-06-27 11:30 | History & Physical Bridge - [place] ---
H&P Re-Evaluation Bridge Note: I have examined the patient, reviewed the History & Physical and in the interval since the performance of the History & Physical I have noted the following changes of clinical significance: No changes noted
--- NOTE | 2017-06-27 11:38 | [facility] Operative Report ---
Operative Report Operative Date Jun 27, 2017. 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 Patient has been seen in the office for the past several years where he did receive local callus care, consisting of debridement and offloading of these lesions, which failed to alleviate his symptoms. Patient is in agreement and wishes to proceed with surgery consisting of condylectomy of his right 3rd and 4th digits. The perioperative indications, planned procedure, possible benefits, risks, complications, and anticipated healing time and management were discussed in detail with the patient. He understands and elects to proceed with surgery. No guarantees were made. All questions have been answered to the patient's satisfaction. Medical clearance has been obtained by the patient's primary care physician. Description of Procedure Under mild sedation, the patient was brought into the OR and placed on the table in the supine position. Final verification of the patient, surgery, and limb designation was performed via the time-out procedure. A pneumatic ankle tourniquet was placed about the patient's right ankle. IV local sedation was then initiated by the anesthesia team. Local block was then administered about the operative sites of the right foot. Following IV sedation and local block, the right foot was scrubbed, prepped and draped in the usual aseptic manner. An Esmarch bandage was used to exsanguinate the patient's right foot and the pneumatic ankle tourniquet was inflated to 250 mmHg. At this time, surgery began as follows: Attention was directed to the dorsomedial aspect of the 3rd digit right foot over the area of the PIP joint where an approximately 1 cm linear longitudinal incision was made. This incision was made just lateral to painful hyperkeratosis. Incision was deepened down to the level of bone taking care to identify and retract all vital neurovascular structures. Upon reaching the PIP joint of the 3rd digit, bright which chalky type substance was identified consistent with gouty tophi. This was easily resected with a rongeur. Once the head of the proximal phalanx and the base of the middle phalanx were identified , the lateral condyle of the base of the proximal phalanx was resected and passed from the operative field using a football bur. All rough edges were then smoothed with a rasp. This procedure was then repeated for the medial aspect of the right 4th digit at the DIP joint. An approximately 1 cm linear longitudinal incision was made. This incision was made just medial to painful hyperkeratosis. Incision was deepened down to the level of bone taking care to identify and retract all vital neurovascular structures. Once the head of the middle phalanx and the base of the proximal phalanx were identified, the medial condyle of the base of the middle phalanx was resected and passed from the using a football bur. At this time, the wounds were flushed with copious amount of NSS. Skin closure was performed using 3-0 nylon in simple fashion. A post-operative dressing consisting of betadine soaked adaptik, 4x4 gauze, kerlix and an you wrap were applied to the right foot. At this time, the pneumatic ankle tourniquet was deflated and prompt hyperemic response was noted to all the digits of the right foot. Patient tolerated the procedure and anesthesia well. He was transferred to the recovery room with vital signs stable and vascular status intact to the right foot. I attest to the content of the Intraoperative Record and any orders documented therein. Any exceptions are noted below.
--- NOTE | 2017-06-27 13:38 | [facility] Post Operative Brief Note ---
Immediate Operative Summary Operative Date Jun 27, 2017. Pre-Operative Diagnosis Right foot corns and callosities, pain Post-Operative Diagnosis same as preop Procedure(s) Performed Right Foot Third And Fourth Digits Surgical Condylectomy Surgeon Dr. Adams Ld Teacher Surgeon(s) none Estimated Blood Loss 2ML Findings Consistent with Post-Op Diagnosis Specimens NONE Anesthesia Type MAC Complication(s) none Disposition Accompanied Pt To Recovery: no
--- NOTE | 2017-06-27 13:46 | Discharge Instructions-[facility]urgCtr ---
Discharge Instructions Date of Service Jun 27, 2017. Visit Reason for Visit: Right Foot Corns And Callosities, Pain Discharge Discharge Diagnosis / Problem: Post-op condylectomy right 3rd and 4th digit Discharge Goals Goal(s): Decrease discomfort, Improve function Activity Recommendations Activity Limitations: as noted below Shower/Bathe: keep incision dry Weightbearing Status: Right partial Rest, ice at the ankle, elevate right foot. Partial or heel weight bearing to right foot as tolerated. Use crutches for assistance with ambulation as needed. Keep dressing clean, dry and intact until post-op visit. Anesthesia . Post Anesthesia Instructions: If you have had General Anesthesia or IV Sedation: * Do not drive today. * Resume driving when surgeon permits. * Do not make important decisions or sign legal documents today. * Call surgeon for: 1. Temperature elevations greater than 101 degrees F. 2. Uncontrollable pain. 3. Excessive bleeding. 4. Persistent nausea and vomiting. 5. Medication intolerance (nausea, vomiting or rash). * For nausea and vomiting use only clear liquids such as: tea, soda, bouillon until nausea subsides, then gradually increase diet as tolerated. * If you have any concerns or questions, call your surgeon's office. If physician is unavailable and it is an emergency, call 911 or go to the nearest emergency room. . Instructions / Follow-Up Instructions / Follow-Up Follow-up within 1 week in the office with Dr. Adams. Diet Recommendations Home Diet: resume previous diet Procedures Procedures Performed: Condylectomy right 3rd digit and right 4th digit Pending Studies Studies pending at discharge: no Medical Emergencies . Who to Call and When: Medical Emergencies: If at any time you feel your situation is an emergency, please call 911 immediately. . Non-Emergent Contact Non-Emergency issues call your: Primary Care Provider . . "Provider Documentation" section prepared by Laina Adams. . [place] Drug Monitoring Program Search Results: patient reviewed within database, no issues identified
[2017-06-27 13:47] VITALS: TEMP 37.2
--- NOTE | 2017-06-27 14:06 | Anesthesia Progress Nt - [facility] ---
Anesthesia Post Op Note Date & Time Jun 27, 2017 at 14:06 Vital Signs Pain Intensity: 0 Vital Signs Past 12 Hours Date Time Temp Pulse Resp B/P (MAP) Pulse Ox O2 Delivery O2 Flow Rate FiO2 06/27/17 13:47 37.2 71 16 159/87 (111) 95 Room Air 06/27/17 11:14 36.7 87 22 133/114 (120) 96 Room Air Notes Mental Status: alert / awake / arousable, participated in evaluation Pt Amnestic to Procedure: Yes Nausea / Vomiting: adequately controlled Pain: adequately controlled Airway Patency, RR, SpO2: stable & adequate BP & HR: stable & adequate Hydration State: stable & adequate Anesthetic Complications: no major complications apparent
[2017-06-27 14:17] VITALS: BP 124/78; PULSE 73; O2SAT 98
--- NOTE | 2017-06-29 14:39 | DIAGNOSTIC IMAGING REPORT ---
SURGICNTR FOOT, 2 VIEWS CLINICAL HISTORY: 57 years-old Male presenting with Post-op portable. TECHNIQUE: Frontal and lateral views of the right foot were obtained. COMPARISON: None. FINDINGS: No acute fracture or malalignment. Mild degenerative changes at the first metatarsophalangeal joint. Postsurgical changes are not immediately apparent. No radiographic soft tissue abnormality. IMPRESSION: No acute osseous injury. Postsurgical changes are not immediately apparent. No priors are available for comparison at this time. Electronically signed by: Carlos Merrill M.D. 06/29/2017 2:38 PM Dictated Date/Time: 06/29/2017 2:36 PM
== END | disposition home or self-care (01) ==
LOC: X.SURG 10:55
PROVIDERS: ATTEND Podiatrist Foot & Ankle Surgery
DX: M1A.9XX1 Chronic gout, unspecified, with tophus (tophi) (principal); L85.9 Epidermal thickening, unspecified; L84 Corns and callosities; F32.9 Major depressive disorder, single episode, unspecified; E78.5 Hyperlipidemia, unspecified; Z88.2 Allergy status to sulfonamides

== ENCOUNTER 2017-07-18 15:52 | Inpatient (IN) | payer OTHER ==
[~2017-07-18] VITALS: Ht 185.4 cm; Wt 94.8 kg
[~2017-07-18 15:52] MED LIST changes: -CEFAZOLIN SOD 2000MG/15 ML IV PUSH IV ONE; -DEXAMETHASONE SOD INJ 4 MG/ML VIAL ONE; -FENTANYL CITRATE INJ 50 MCG/1 ML 2 ML VIAL ONE; -HYDR-5688 PO; -LACTATED RINGER'S 1000ML 1,000 ML IV SCH; -LIDOCAINE HCL 1% 20 ML VIAL ONE; -LIDOCAINE HCL 2% 2 ML VIAL (20MG/ML) ONE; -MIDAZOLAM HCL 1 MG/ML 2ML VIAL ONE; -ONDANSETRON INJ 2 MG/ML 2 ML VIAL ONE; -PROPOFOL IV EMULSION 10 MG/ML 20 ML VIAL IV ONE
--- NOTE | 2017-07-18 16:32 | EMERGENCY ROOM VISIT NOTE ---
ED Visit Note First contact with patient: 16:30 CHIEF COMPLAINT: Abdominal pain HISTORY OF PRESENTING ILLNESS: This is a 57-year-old male who presents to the emergency department with complaint of abdominal pain and bloating. Patient states he has been having some abdominal pain and bloating issues off and on for the past 2-3 weeks, but his symptoms became much more severe today. He does report a history of bowel obstruction in the past, and states this feels somewhat similar to his previous bowel obstructions. Today he has also had some associated chills and body aches. He states he has a chronic cough associated with history of Juares's esophagus, but states that the past 2 days he has been having some phlegm production with cough, and feeling like his cough is slightly worse and a little short of breath. He denies chest pain. He states his abdominal pain has become constant, dull ache with intermittent sharp stabbing pains, nothing makes it better or worse, 8/10. He states that his abdomen is bloated and more distended than normal. He does report that he has had several normal bowel movements today and is still passing gas. He denies any constipation or diarrhea, bloody or black stools recently. He denies headaches, vision changes, neck pain or stiffness, back pain, urinary symptoms, or rash. REVIEW OF SYSTEMS: A complete 10 point review of systems was reviewed with the patient with pertinent positives and negatives as per history of present illness. All else were negative. PAST MEDICAL HISTORY: Reviewed in chart. SOCIAL HISTORY: Lives at home with family. Former smoker, quit 40 years ago. Denies alcohol or recreational drug use. ALLERGIES: Reviewed in chart. PHYSICAL EXAM: CONSTITUTIONAL: Pleasant and cooperative. No acute distress, but does appear uncomfortable and in pain during exam. Mildly dehydrated. HEENT: Normocephalic, atraumatic. Pupils equal, round and reactive to light, EOMI. TMs normal. Pharynx normal. Tacky mucous membranes. NECK: Supple, full active range of motion without discomfort. No cervical adenopathy. RESPIRATORY: Clear to auscultation bilaterally with no wheezing, crackles, rhonchi or stridor. Equal expansion bilaterally. CARDIOVASCULAR: Regular rate and rhythm with no murmurs, rubs or gallops. Normal peripheral perfusion. No edema. GASTROINTESTINAL: Soft, diffusely tender throughout, most tender around the dex -umbilicus and left lower quadrant. Distended abdomen. No rebound tenderness. No palpable masses or HSM. Hypoactive bowel has no CVA tenderness. Sounds present in all quadrants. MUSCULOSKELETAL: Full range of motion of all joints without discomfort. INTEGUMENTARY: No rash or other significant dermatologic conditions noted. NEUROLOGIC: Alert and oriented X 4 with normal affect. Normal strength and sensation in all 4 extremities. No focal neurologic deficits noted. Normal speech. Normal gait observed. ED COURSE AND MEDICAL DECISION MAKING: CC: Patient presenting with complaint of abdominal pain and distention, chills DIFFERENTIAL DIAGNOSIS: Includes, but not limited to small bowel obstruction, ileus, gastroenteritis, gastritis, peptic ulcer disease, colitis, diverticulitis , cholecystitis, cholelithiasis, pancreatitis, intra-abdominal abscess, inflammatory bowel disease, other infectious process including influenza, pneumonia, UTI, among others. INTERPRETATION OF LABS: No leukocytosis, no anemia, mild hyponatremia and hyperglycemia, no other significant electrolyte abnormalities, normal renal function, elevated T bili, liver enzymes otherwise normal, normal lipase. UA negative. Normal lactic acid. Elevated pro calcitonin. Normal ESR, elevated CRP. IMAGING: SINGLE VIEW CHEST CLINICAL HISTORY: Cough and fever. FINDINGS: An AP, portable, upright chest radiograph is compared to study dated 07/05/2017 and correlated with chest CT dated 05/20/2015. The examination is degraded by portable technique and patient rotation. The heart is enlarged. The pulmonary vasculature is noncongested. Bibasilar atelectasis is observed. The lungs and pleural spaces are otherwise clear. No pneumothorax is seen. The bony thorax is grossly intact. IMPRESSION: Cardiomegaly with no acute cardiopulmonary abnormality. ----- ABD/PELVIS IV CONTRAST ONLY CT DOSE: 640.12 mGy.cm HISTORY: Pain eval perf, infectious process, SBO TECHNIQUE: Multiaxial CT images of the abdomen and pelvis were performed following the use of intravenous contrast. A dose lowering technique was utilized adhering to the principles of ALARA. COMPARISON STUDY: None. FINDINGS: Minimal bibasilar atelectasis. Liver is uniform as is the spleen and pancreas. The adrenal glands are unremarkable. The kidneys demonstrate several small cortical cysts. There are negative for hydronephrosis. Mild distention of several loops of proximal to mid small bowel. Colon shows no evidence for distention. The distal small bowel shows evidence for a small caliber with evidence for hyperemia involving the terminal ileum as well as components of the left central abdominal region. This appearance suggests nonspecific enteritis versus inflammatory bowel change. A well-defined obstructing mass process is not appreciated. No significant abdominal pelvic or inguinal adenopathy. IMPRESSION: 1. Findings consistent with partial mid to distal small bowel obstructive change. 2. No evidence for a well-defined obstructing lesion, although there is a significant decrease in caliber of the mid and distal small bowel At several locations suggesting nonspecific small bowel inflammatory change versus enteritis. 3. No evidence for abscess or collection. MEDICATION RECONCILIATION: I attest that I have personally reviewed the patient 's current medication list. INITIAL VITAL SIGNS REVIEW: I reviewed the patient's initial vital signs and interpret them as follows: T: Febrile; BP: Normotensive; HR: Tachycardia; RR : Within normal limit; Pulse Ox: Within normal limits on room air. Blood pressure screening: The patient was found to have normal blood pressure on screening and does not require follow-up for repeat blood pressure check. SUMMARY: Patient was evaluated at bedside, history and physical exam performed. Patient is alert and oriented, no acute distress but does appear uncomfortable during exam, resting calmly in the stretcher. Patient has diffuse abdominal pain with distention, but the abdomen is soft. Hypoactive bowel sounds. Lungs clear to auscultation, tight raspy cough noted. He does appear mildly dehydrated. Given the fact that he is tolerating p.o., passing gas and moving bowels normally, I think it is less likely that he has a bowel obstruction. The presence of fevers and chills with tachycardia is more concerning for an infectious etiology. Orders were placed at bedside for labs, UA, IV fluids for hydration, IV Tylenol for fever, IV morphine for pain, IV Zofran for nausea, CT abdomen/pelvis with IV contrast to evaluate for intra-abdominal pathology. Patient discussed with Dr. Lowry, who agrees with my assessment and plan. Labs and imaging reviewed as above, findings concerning for partial small bowel obstruction, as well as inflammatory changes concerning for possible infection or IBD. Given patient's presentation with fevers and chills, will treat for suspected GI infection with IV Zosyn. I spoke with Dr. Ko, hospitalist, who agrees to evaluate the patient for admission. Patient reassessed multiple times throughout ED stay, he remained stable, tachycardia downtrending, and reports his pain has been well controlled. Patient was updated on all results and plan for admission, he verbalized understanding and was agreeable to this plan. Patient was stable at time of admission. Problem List Medical Problems: (1) Esophageal dysmotility Status: Chronic (2) Gastroesophageal reflux disease Status: Chronic (3) Kidney stone Status: Resolved Current/Historical Medications Scheduled Aspirin (Aspirin Ec), 81 MG PO HS Atorvastatin (Lipitor), 20 MG PO HS Cholecalciferol (Vitamin D), 2,000 INTER.UNIT PO QAM Fiber Laxative (Fiber Laxative), 1 TAB PO QAM Lansoprazole (Prevacid), 30 MG PO BID Probiotic Product (Probiotic), 1 CAP PO DAILY Scheduled PRN Lorazepam (Lorazepam), 0.5 MG PO DAILY PRN for Anxiety Allergies Coded Allergies: Sulfa Antibiotics (Verified Allergy, Severe, SEVERE HIVES/ITCHING, 06/27/17 ) Vital Signs Date Time Temp Pulse Resp B/P (MAP) Pulse Ox O2 Delivery O2 Flow Rate FiO2 07/18/17 19:01 96 18 123/71 95 Room Air 07/18/17 17:05 108 07/18/17 16:57 109 14 132/87 07/18/17 16:02 38.5 119 18 124/80 98 Room Air Laboratory Results 07/18/17 17:31 Red Blood Count 4.63, Mean Corpuscular Volume 93.5, Mean Corpuscular Hemoglobin 33.0, Mean Corpuscular Hemoglobin Concent 35.3, Mean Platelet Volume 9.9, Neutrophils (%) (Auto) 90.9, Lymphocytes (%) (Auto) 2.8, Monocytes (%) (Auto) 5.9, Eosinophils (%) (Auto) 0.0, Basophils (%) (Auto) 0.2, Neutrophils # (Auto) 5.75, Lymphocytes # (Auto) 0.18, Monocytes # (Auto) 0.37, Eosinophils # (Auto) 0.00, Basophils # (Auto) 0.01 07/18/17 17:31 Test 07/18/17 17:31 07/18/17 17:40 07/18/17 18:31 07/18/17 20:01 White Blood Count 6.32 K/uL (4.8-10.8) Red Blood Count 4.63 M/uL (4.7-6.1) Hemoglobin 15.3 g/dL (14.0-18.0) Hematocrit 43.3 % (42-52) Mean Corpuscular Volume 93.5 fL (80-100) Mean Corpuscular Hemoglobin 33.0 pg (25-34) Mean Corpuscular Hemoglobin Concent 35.3 g/dl (32-36) Platelet Count 194 K/uL (130-400) Mean Platelet Volume 9.9 fL (7.4-10.4) Neutrophils (%) (Auto) 90.9 % Lymphocytes (%) (Auto) 2.8 % Monocytes (%) (Auto) 5.9 % Eosinophils (%) (Auto) 0.0 % Basophils (%) (Auto) 0.2 % Neutrophils # (Auto) 5.75 K/uL (1.4-6.5) Lymphocytes # (Auto) 0.18 K/uL (1.2-3.4) Monocytes # (Auto) 0.37 K/uL (0.11-0.59) Eosinophils # (Auto) 0.00 K/uL (0-0.5) Basophils # (Auto) 0.01 K/uL (0-0.2) RDW Standard Deviation 43.0 fL (36.4-46.3) RDW Coefficient of Variation 12.6 % (11.5-14.5) Immature Granulocyte % (Auto) 0.2 % Immature Granulocyte # (Auto) 0.01 K/uL (0.00-0.02) Erythrocyte Sedimentation Rate 8 mm/hr (0-14) Anion Gap 9.0 mmol/L (3-11) Est Creatinine Clear Calc Drug Dose 66.6 ml/min Estimated GFR () 66.1 Estimated GFR (Non- 57.1 BUN/Creatinine Ratio 15.4 (10-20) Calcium Level 9.0 mg/dl (8.5-10.1) Total Bilirubin 1.1 mg/dl (0.2-1) Direct Bilirubin 0.3 mg/dl (0-0.2) Aspartate Amino Transf (AST/SGOT) 44 U/L (15-37) Alanine Aminotransferase (ALT/SGPT) 65 U/L (12-78) Alkaline Phosphatase 84 U/L (45-117) C-Reactive Protein 1.85 mg/dl (0-0.29) Total Protein 7.6 gm/dl (6.4-8.2) Albumin 3.8 gm/dl (3.4-5.0) Lipase 135 U/L (73-393) Procalcitonin 0.60 ng/ml (0-0.5) Influenza Type A Antigen Neg for Influ A (NEG) Influenza Type B Antigen Neg for Influ B (NEG) Urine Color YELLOW Urine Appearance CLEAR (CLEAR) Urine pH 6.0 (4.5-7.5) Urine Specific [place] 1.043 (1.000-1.030) Urine Protein NEG (NEG) Urine Glucose (UA) NEG (NEG) Urine Ketones TRACE (NEG) Urine Occult Blood NEG (NEG) Urine Nitrite NEG (NEG) Urine Bilirubin NEG (NEG) Urine Urobilinogen NEG (NEG) Urine Leukocyte Esterase NEG (NEG) Lactic Acid Level 0.8 mmol/L (0.4-2.0) Medications Administered Medications (Trade) Dose Ordered Sig/Humphrey Route Start Time Stop Time Status Last Admin Dose Admin Sodium Chloride 1,000 ml @ 999 mls/hr Q1H1M STAT IV 07/18/17 16:46 07/18/17 17:46 DC 07/18/17 17:31 999 MLS/HR Acetaminophen 100 ml @ 400 mls/hr NOW STAT IV 07/18/17 16:46 07/18/17 17:08 DC 07/18/17 17:31 400 MLS/HR Morphine Sulfate (MoRPHine SULFATE INJ) 4 mg NOW STAT IV 07/18/17 16:46 07/18/17 17:08 DC 07/18/17 17:31 4 MG Ondansetron HCl (Zofran Inj) 4 mg NOW STAT IV 07/18/17 16:46 07/18/17 17:08 DC 07/18/17 17:30 4 MG Piperacillin Sod/ Tazobactam Sod (Zosyn Iv) 4.5 gm NOW STAT IV 07/18/17 19:29 07/18/17 19:32 DC 07/18/17 19:39 4.5 GM Sodium Chloride 1,000 ml @ 150 mls/hr Q6H40M STAT IV 07/18/17 19:47 07/18/17 22:17 DC 07/18/17 19:47 150 MLS/HR Departure Information Impression Primary Impression: Small bowel obstruction Additional Impression: Fever Dispostion Admitted as an inpatient Condition FAIR Referrals No Doctor, Assigned (PCP) Patient Instructions My [facility] Problem Qualifiers Additional Impression: Fever Fever type: due to other condition Qualified Codes: R50.81 - Fever presenting with conditions classified elsewhere
[2017-07-18] MEDS ORDERED: SODIUM CHLORIDE 0.9% 1000ML 1,000 ML IV STA ×2 (16:46→19:47)
[2017-07-18] MEDS ORDERED: MoRPHine SULFATE 4 MG/ML 1 ML CARP\\VIAL IV STA (16:46)
[2017-07-18] MEDS ORDERED: ACETAMINOPHEN IV 100 ML IV STA (16:46)
[2017-07-18] MEDS ORDERED: ONDANSETRON INJ 2 MG/ML 2 ML VIAL IV STA (16:46)
[2017-07-18] MEDS ORDERED: OPTIRAY 320 IV PRN (17:15)
[2017-07-18 17:36] LABS: BASO % 0.2 %; BASO ABS # 0.01 K/uL (0-0.2); HEMATOCRIT 43.3 % (42-52); HEMOGLOBIN 15.3 g/dL (14.0-18.0); IG# 0.01 K/uL (0.00-0.02); LYMPH % 2.8 %; LYMPH ABS # 0.18 K/uL (1.2-3.4); MEAN CELL VOLUME 93.5 fL (80-100); MEAN CORPUSCULAR HGB CONC 35.3 g/dl (32-36); MEAN PLATELET VOLUME 9.9 fL (7.4-10.4); MONO % 5.9 %; MONO ABS # 0.37 K/uL (0.11-0.59); NEUT % 90.9 %; NEUT ABS # 5.75 K/uL (1.4-6.5); PLATELET COUNT 194 K/uL (130-400); RED CELL DISTRIBUTION WIDTH CV 12.6 % (11.5-14.5); WHITE BLOOD COUNT 6.32 K/uL (4.8-10.8)
--- NOTE | 2017-07-18 17:43 | DIAGNOSTIC IMAGING REPORT ---
SINGLE VIEW CHEST CLINICAL HISTORY: Cough and fever. FINDINGS: An AP, portable, upright chest radiograph is compared to study dated 07/05/2017 and correlated with chest CT dated 05/20/2015. The examination is degraded by portable technique and patient rotation. The heart is enlarged. The pulmonary vasculature is noncongested. Bibasilar atelectasis is observed. The lungs and pleural spaces are otherwise clear. No pneumothorax is seen. The bony thorax is grossly intact. IMPRESSION: Cardiomegaly with no acute cardiopulmonary abnormality. Electronically signed by: Eduardo Eubanks M.D. 07/18/2017 5:42 PM Dictated Date/Time: 07/18/2017 5:41 PM
[2017-07-18 17:49] LABS: ALBUMIN 3.8 gm/dl (3.4-5.0); CREATININE 1.35 mg/dl (0.60-1.40); POTASSIUM 3.9 mmol/L (3.5-5.1)
[2017-07-18 17:52] LABS: TOTAL PROTEIN 7.6 gm/dl (6.4-8.2)
[2017-07-18] MEDS ORDERED: LANS30CA12 PO (18:03)
[2017-07-18 18:04] LABS: INFLUENZA B ANTIGEN Neg for Influ B (NEG)
[2017-07-18] MEDS ORDERED: MISCCAP80 PO (18:04)
--- NOTE | 2017-07-18 18:30 | DIAGNOSTIC IMAGING REPORT ---
ABD/PELVIS IV CONTRAST ONLY CT DOSE: 640.12 mGy.cm HISTORY: Pain eval perf, infectious process, SBO TECHNIQUE: Multiaxial CT images of the abdomen and pelvis were performed following the use of intravenous contrast. A dose lowering technique was utilized adhering to the principles of ALARA. COMPARISON STUDY: None. FINDINGS: Minimal bibasilar atelectasis. Liver is uniform as is the spleen and pancreas. The adrenal glands are unremarkable. The kidneys demonstrate several small cortical cysts. There are negative for hydronephrosis. Mild distention of several loops of proximal to mid small bowel. Colon shows no evidence for distention. The distal small bowel shows evidence for a small caliber with evidence for hyperemia involving the terminal ileum as well as components of the left central abdominal region. This appearance suggests nonspecific enteritis versus inflammatory bowel change. A well-defined obstructing mass process is not appreciated. No significant abdominal pelvic or inguinal adenopathy. IMPRESSION: 1. Findings consistent with partial mid to distal small bowel obstructive change. 2. No evidence for a well-defined obstructing lesion, although there is a significant decrease in caliber of the mid and distal small bowel At several locations suggesting nonspecific small bowel inflammatory change versus enteritis. 3. No evidence for abscess or collection. The above report was generated using voice recognition software. It may contain grammatical, syntax or spelling errors. Electronically signed by: Ish Bishop M.D. 07/18/2017 6:29 PM Dictated Date/Time: 07/18/2017 6:24 PM
[2017-07-18] MEDS ORDERED: PIPERACILLIN/TAZOBACTAM 4.5 GM/100ML D5W IV STA (19:29)
[2017-07-18] MEDS ORDERED: ONDANSETRON INJ 2 MG/ML 2 ML VIAL IV PRN (20:30)
[2017-07-18] MEDS ORDERED: PIPERACILL/TAZOBAC CONSULT ACTIVE PRN (20:30)
[2017-07-18] MEDS ORDERED: MoRPHine SULFATE 2 MG/ML CARP IV PRN (21:15)
[2017-07-18] MEDS ORDERED: KETOROLAC TROMETHAMINE 15 MG/ML VIAL IV. PRN (21:15)
--- NOTE | 2017-07-18 21:20 | History and Physical ---
History & Physical Date & Time of Service: Jul 18, 2017 at 20:47 Chief Complaint: FLU Primary Care Physician: RV. Alvarenga MD History of Present Illness Source: patient Patient is a 57 year old male with IBS and Barrets Esophagus that presents with a 3 week history of worsening abdominal pain. The patient has been having intermittent abdominal pain every 3 days over the last few weeks that at can be anywhere between a 6-10/10, crampy to turning pain, changes location between the upper and lower quadrants, not associated with bowel movements, and does not resolve or worsen with any specific therapies. The patient come in to the hospital today because he began having fever, chills, and muscle aches this morning and was sent over by his PCP Dr. An over concerns of abdominal distention and a bowel obstruction. He has also been complaining of a recent cough with sputum production for the last few days with associated shortness of breath this morning. The patient did have several bowel movements today that started out as hard pellets and progressed to regular stools that were not loose or runny. He is currently complaining of 6/10 abdominal pain after having 4mg of morphine in the ED. The patient also requests not having an NG tube at this time if it can be avoided due to severe gag reflex. The patient has followed with Dr. Shelton in the past for multiple bowel obstructions that have been worked up to be secondary to acute inflammation from IBS. He gets colonoscopies q5 years and had his last one approximately 2 years ago. 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 Family History Noncontributory Social History Smoking Status: Never Smoker Smokeless Tobacco Use: No Alcohol Use: none Drug Use: none Marital Status: Housing status: lives with family Occupational Status: employed Immunizations History of Influenza Vaccine: Unknown History of Tetanus Vaccine?: Unknown History of Pneumococcal: Unknown History of Hepatitis B Vaccine: Unknown Allergies Coded Allergies: Sulfa Antibiotics (Verified Allergy, Intermediate, SEVERE HIVES/ITCHING, ) Home Medications Scheduled Aspirin (Aspirin Ec), 81 MG PO HS Atorvastatin (Lipitor), 20 MG PO HS Cholecalciferol (Vitamin D), 2,000 INTER.UNIT PO QAM Fiber Laxative (Fiber Laxative), 1 TAB PO QAM Lansoprazole (Prevacid), 30 MG PO BID Probiotic Product (Probiotic), 1 CAP PO DAILY Scheduled PRN Lorazepam (Lorazepam), 0.5 MG PO DAILY PRN for Anxiety Review of Systems Constitutional: + fever, + chills, + fatigue, No sweats, No weight loss ENT: No sore throat, No trouble swallowing Respiratory: + cough, + sputum, No shortness of breath Cardiovascular: No chest pain, No palpitations Abdomen: + pain, + nausea, No vomiting, No diarrhea, No constipation, No GI bleeding Musculoskeletal: + muscle pain, No joint pain, No calf pain Physical Exam Vital Signs Date Time Temp Pulse Resp B/P (MAP) Pulse Ox O2 Delivery O2 Flow Rate FiO2 07/18/17 19:01 96 18 123/71 95 Room Air 07/18/17 17:05 108 07/18/17 16:57 109 14 132/87 07/18/17 16:02 38.5 119 18 124/80 98 Room Air General Appearance: WD/WN, + mild distress Eyes: normal inspection, sclerae normal Neck: supple, trachea midline Respiratory/Chest: chest non-tender, lungs clear, normal breath sounds, no respiratory distress, no accessory muscle use Cardiovascular: regular rate, rhythm, no edema, no gallop, no murmur Abdomen/GI: normal bowel sounds, soft, + distended Neurologic/Psych: alert, oriented x 3 Diagnostics Laboratory Results Results Past 24 Hours Test 07/18/17 17:31 07/18/17 17:40 07/18/17 18:31 07/18/17 20:01 Range/Units White Blood Count 6.32 4.8-10.8 K/uL Red Blood Count 4.63 4.7-6.1 M/uL Hemoglobin 15.3 14.0-18.0 g/dL Hematocrit 43.3 42-52 % Mean Corpuscular Volume 93.5 80-100 fL Mean Corpuscular Hemoglobin 33.0 25-34 pg Mean Corpuscular Hemoglobin Concent 35.3 32-36 g/dl Platelet Count 194 130-400 K/uL Mean Platelet Volume 9.9 7.4-10.4 fL Neutrophils (%) (Auto) 90.9 % Lymphocytes (%) (Auto) 2.8 % Monocytes (%) (Auto) 5.9 % Eosinophils (%) (Auto) 0.0 % Basophils (%) (Auto) 0.2 % Neutrophils # (Auto) 5.75 1.4-6.5 K/uL Lymphocytes # (Auto) 0.18 1.2-3.4 K/uL Monocytes # (Auto) 0.37 0.11-0.59 K/uL Eosinophils # (Auto) 0.00 0-0.5 K/uL Basophils # (Auto) 0.01 0-0.2 K/uL RDW Standard Deviation 43.0 36.4-46.3 fL RDW Coefficient of Variation 12.6 11.5-14.5 % Immature Granulocyte % (Auto) 0.2 % Immature Granulocyte # (Auto) 0.01 0.00-0.02 K/uL Erythrocyte Sedimentation Rate 8 0-14 mm/hr Sodium Level 132 136-145 mmol/L Potassium Level 3.9 3.5-5.1 mmol/L Chloride Level 97 98-107 mmol/L Carbon Dioxide Level 26 21-32 mmol/L Anion Gap 9.0 3-11 mmol/L Blood Urea Nitrogen 21 7-18 mg/dl Creatinine 1.35 0.60-1.40 mg/dl Est Creatinine Clear Calc Drug Dose 66.6 ml/min Estimated GFR () 66.1 Estimated GFR (Non- 57.1 BUN/Creatinine Ratio 15.4 10-20 Random Glucose 143 70-99 mg/dl Calcium Level 9.0 8.5-10.1 mg/dl Total Bilirubin 1.1 0.2-1 mg/dl Direct Bilirubin 0.3 0-0.2 mg/dl Aspartate Amino Transf (AST/SGOT) 44 15-37 U/L Alanine Aminotransferase (ALT/SGPT) 65 12-78 U/L Alkaline Phosphatase 84 45-117 U/L C-Reactive Protein 1.85 0-0.29 mg/dl Total Protein 7.6 6.4-8.2 gm/dl Albumin 3.8 3.4-5.0 gm/dl Lipase 135 73-393 U/L Procalcitonin 0.60 0-0.5 ng/ml Influenza Type A Antigen Neg for Influ A NEG Influenza Type B Antigen Neg for Influ B NEG Urine Color YELLOW Urine Appearance CLEAR CLEAR Urine pH 6.0 4.5-7.5 Urine Specific [place] 1.043 1.000-1.030 Urine Protein NEG NEG Urine Glucose (UA) NEG NEG Urine Ketones TRACE NEG Urine Occult Blood NEG NEG Urine Nitrite NEG NEG Urine Bilirubin NEG NEG Urine Urobilinogen NEG NEG Urine Leukocyte Esterase NEG NEG Lactic Acid Level 0.8 0.4-2.0 mmol/L Impression Assessment and Plan Patient is a 57 year old male with IBS and Barrets Esophagus that presents with a 3 week history of worsening abdominal pain Small Bowel Obstruction - CT Abdomen: 1. Findings consistent with partial mid to distal small bowel obstructive change. 2. No evidence for a well-defined obstructing lesion, although there is a significant decrease in caliber of the mid and distal small bowel at several locations suggesting nonspecific small bowel inflammatory change versus enteritis. 3. No evidence for abscess or collection. - NPO - Pain Control with Tylenol, Toradol, and Morphine if needed - GI Consult - IV NS @ 125 mls/hr Infectious Enteritis - Zosyn 3.375 IV q8h - Blood Cultures x 2 (Already received 1 dose of Zosyn in ED prior) - No leukocytosis at this time --> Daily CBC - GI consultation GERD/ Juares Esophagus - IV Protonix Home Meds - Holding home Aspirin, Lipitor, and Lorazepam while NPO DVT - SCDs Code Status - Full Resuscitation Attending addendum: I have physically seen this patient, have supervised the medical residents activities, and agree with the H&P unless as otherwise noted. Assessment and Plan: Small bowel obstruction/infectious or inflammatory enteritis-- Admit to medical surgical floor. N.p.o. IV fluids Zosyn 3.375 mg IV every 8 hours Protonix 40 mg IV daily Zofran 4 mg IV every 6 hours as needed Consult gastroenterology Advanced Directives Existing Advance Directive: No Existing Living Will: No Existing Power of Algorithm Developer: No Resuscitation Status Full Code VTE Prophylaxis Will order VTE Prophylaxis: Yes Resident Tracking Resident Involvement: Resident Care Provided Care Provided: Adult Hospital Medicine
[2017-07-18] MEDS ORDERED: NURSING VERBAL MED ORDER ONE (22:00)
[2017-07-18 22:20] VITALS: BP 141/81; TEMP 36.8; O2SAT 96; Ht 185.4 cm; Wt 94.8 kg
[2017-07-18] MEDS: SODIUM CHLORIDE 0.9% 1000ML 1,000 ML IV SCH (22:25)
[2017-07-18] MEDS: KETOROLAC TROMETHAMINE 15 MG/ML VIAL IV. SCH (22:25)
[2017-07-18 22:55] VITALS: BP 123/77; PULSE 88; TEMP 36.9; O2SAT 94
[2017-07-18] MEDS: PIPERACILL/TAZOBAC IV 3.375 GM in DEXTROSE 5% 100ML 100 ML IV SCH (23:32)
[2017-07-19] MEDS: ACETAMINOPHEN IV 1,000 MG in EMPTY BAG 0 ML IV SCH ×3 (02:00→19:04)
[2017-07-19] MEDS: KETOROLAC TROMETHAMINE 15 MG/ML VIAL IV. SCH ×6 (02:02→22:47)
[2017-07-19] MEDS: PIPERACILL/TAZOBAC IV 3.375 GM in DEXTROSE 5% 100ML 100 ML IV SCH ×3 (05:54→21:38)
[2017-07-19] MEDS: SODIUM CHLORIDE 0.9% 1000ML 1,000 ML IV SCH ×3 (05:54→23:30)
[2017-07-19 07:22] VITALS: BP 114/67; PULSE 64; TEMP 36.7; O2SAT 94
[2017-07-19 07:40] LABS: HEMATOCRIT 38.3 % (42-52); HEMOGLOBIN 13.3 g/dL (14.0-18.0); IG# 0.01 K/uL (0.00-0.02); LYMPH % 14.7 %; LYMPH ABS # 0.52 K/uL (1.2-3.4); MEAN CELL VOLUME 93.2 fL (80-100); MEAN CORPUSCULAR HEMOGLOBIN 32.4 pg (25-34); MEAN CORPUSCULAR HGB CONC 34.7 g/dl (32-36); MEAN PLATELET VOLUME 9.7 fL (7.4-10.4); MONO % 6.8 %; MONO ABS # 0.24 K/uL (0.11-0.59); NEUT % 78.2 %; NEUT ABS # 2.77 K/uL (1.4-6.5); PLATELET COUNT 156 K/uL (130-400); RED CELL DISTRIBUTION WIDTH CV 12.6 % (11.5-14.5); RED CELL DISTRIBUTION WIDTH SD 43.1 fL (36.4-46.3); WHITE BLOOD COUNT 3.54 K/uL (4.8-10.8)
[2017-07-19 08:12] LABS: CALCIUM 8.1 mg/dl (8.5-10.1); CREATININE 1.52 mg/dl (0.60-1.40); POTASSIUM 3.4 mmol/L (3.5-5.1)
[2017-07-19] MEDS ORDERED: POTASSIUM CHLR 20 MEQ / WTR 20 MEQ in PREMIXED WATER 100 ML IV STA (08:29)
--- NOTE | 2017-07-19 08:36 | Family Medicine Progress Note ---
Progress Note Date of Service Jul 19, 2017. Subjective Pt evaluation today including: conversation w/ patient, physical exam Voiding: no voiding problems, no incontinence Norbert reports feeling ok today, he is hungry and eager to have some coffee again. He is having some gas. He denies any nausea or vomiting. He reports he had seven small BMs yesterday. He reports he had felt slightly unwell and thought he had the flu, which is why he went to see his PCP. He reports the two previous times he had SBO he had also started to feel like he had the flu. Constitutional: No fever, No chills Eyes: No worsening of vision ENT: No hearing loss Respiratory: No cough, No sputum Skin: No rash All Other Systems: Reviewed and Negative Medications Current Inpatient Medications Medications (Trade) Dose Ordered Sig/Humphrey Route Start Time Stop Time Status Last Admin Dose Admin Ioversol (Optiray 320) 100 ml UD PRN IV 07/18/17 17:15 07/22/17 17:14 Ondansetron HCl (Zofran Inj) 4 mg Q6H PRN IV 07/18/17 20:30 08/17/17 20:29 Piperacillin Sod/ Tazobactam Sod 3.375 gm/Dextrose 115 ml @ 28.75 mls/ hr Q8 IV 07/19/17 00:00 07/29/17 00:00 07/19/17 05:54 28.75 MLS/HR Miscellaneous Information (Consult) 1 ea UD PRN N/A 07/18/17 20:30 08/17/17 20:29 Sodium Chloride 1,000 ml @ 125 mls/hr Q8H IV 07/18/17 22:30 08/17/17 22:29 07/19/17 05:54 125 MLS/HR Pantoprazole Sodium 40 mg/ Syringe 10 ml @ 5 mls/min DAILY@11 IV 07/19/17 11:00 08/18/17 10:59 Acetaminophen 1000 mg/Empty Bag 100 ml @ 400 mls/hr Q8H IV 07/19/17 02:00 08/18/17 01:59 07/19/17 02:00 400 MLS/HR Morphine Sulfate (MoRPHine SULFATE INJ) 2 mg Q4H PRN IV 07/18/17 21:15 08/01/17 21:14 Ketorolac Tromethamine (Toradol Inj) 15 mg Q4H IV. 07/18/17 22:30 07/23/17 22:29 07/19/17 05:54 15 MG Potassium Chloride 20 meq/ Prmx 100 ml @ 50 mls/hr NOW STAT IV 07/19/17 08:29 07/19/17 10:28 UNV Magnesium Sulfate 1 gm/Prmx 100 ml @ 100 mls/hr NOW STAT IV 07/19/17 08:29 07/19/17 09:28 UNV Objective Vital Signs Date Time Temp Pulse Resp B/P (MAP) Pulse Ox O2 Delivery O2 Flow Rate FiO2 07/19/17 07:22 36.7 64 17 114/67 (83) 94 Room Air 07/18/17 23:40 Room Air 07/18/17 22:55 36.9 88 18 123/77 (92) 94 Room Air 07/18/17 22:20 36.8 16 141/81 96 Room Air 07/18/17 21:59 84 128/80 96 07/18/17 21:24 84 128/80 96 Room Air 07/18/17 19:01 96 18 123/71 95 Room Air 07/18/17 17:05 108 07/18/17 16:57 109 14 132/87 07/18/17 16:02 38.5 119 18 124/80 98 Room Air Physical Exam General Appearance: WD/WN, no apparent distress Eyes: normal inspection, PERRL ENT: normal ENT inspection, hearing grossly normal Neck: supple, no JVD Respiratory/Chest: lungs clear, normal breath sounds, no respiratory distress Cardiovascular: regular rate, rhythm, no murmur Abdomen: soft, + pertinent finding (soft BS but present) Extremities: non-tender, no pedal edema Neurologic/Psychiatric: alert, normal mood/affect, oriented x 3 Skin: + pertinent finding (body art over torso and arms) Laboratory Results Last 24 Hours Test 07/18/17 17:31 07/18/17 17:40 07/18/17 18:31 07/18/17 20:01 White Blood Count 6.32 K/uL Red Blood Count 4.63 M/uL Hemoglobin 15.3 g/dL Hematocrit 43.3 % Mean Corpuscular Volume 93.5 fL Mean Corpuscular Hemoglobin 33.0 pg Mean Corpuscular Hemoglobin Concent 35.3 g/dl Platelet Count 194 K/uL Mean Platelet Volume 9.9 fL Neutrophils (%) (Auto) 90.9 % Lymphocytes (%) (Auto) 2.8 % Monocytes (%) (Auto) 5.9 % Eosinophils (%) (Auto) 0.0 % Basophils (%) (Auto) 0.2 % Neutrophils # (Auto) 5.75 K/uL Lymphocytes # (Auto) 0.18 K/uL Monocytes # (Auto) 0.37 K/uL Eosinophils # (Auto) 0.00 K/uL Basophils # (Auto) 0.01 K/uL RDW Standard Deviation 43.0 fL RDW Coefficient of Variation 12.6 % Immature Granulocyte % (Auto) 0.2 % Immature Granulocyte # (Auto) 0.01 K/uL Erythrocyte Sedimentation Rate 8 mm/hr Sodium Level 132 mmol/L Potassium Level 3.9 mmol/L Chloride Level 97 mmol/L Carbon Dioxide Level 26 mmol/L Anion Gap 9.0 mmol/L Blood Urea Nitrogen 21 mg/dl Creatinine 1.35 mg/dl Est Creatinine Clear Calc Drug Dose 66.6 ml/min Estimated GFR () 66.1 Estimated GFR (Non- 57.1 BUN/Creatinine Ratio 15.4 Random Glucose 143 mg/dl Calcium Level 9.0 mg/dl Total Bilirubin 1.1 mg/dl Direct Bilirubin 0.3 mg/dl Aspartate Amino Transf (AST/SGOT) 44 U/L Alanine Aminotransferase (ALT/SGPT) 65 U/L Alkaline Phosphatase 84 U/L C-Reactive Protein 1.85 mg/dl Total Protein 7.6 gm/dl Albumin 3.8 gm/dl Lipase 135 U/L Procalcitonin 0.60 ng/ml Influenza Type A Antigen Neg for Influ A Influenza Type B Antigen Neg for Influ B Urine Color YELLOW Urine Appearance CLEAR Urine pH 6.0 Urine Specific [place] 1.043 Urine Protein NEG Urine Glucose (UA) NEG Urine Ketones TRACE Urine Occult Blood NEG Urine Nitrite NEG Urine Bilirubin NEG Urine Urobilinogen NEG Urine Leukocyte Esterase NEG Lactic Acid Level 0.8 mmol/L Test 07/19/17 07:23 White Blood Count 3.54 K/uL Red Blood Count 4.11 M/uL Hemoglobin 13.3 g/dL Hematocrit 38.3 % Mean Corpuscular Volume 93.2 fL Mean Corpuscular Hemoglobin 32.4 pg Mean Corpuscular Hemoglobin Concent 34.7 g/dl Platelet Count 156 K/uL Mean Platelet Volume 9.7 fL Neutrophils (%) (Auto) 78.2 % Lymphocytes (%) (Auto) 14.7 % Monocytes (%) (Auto) 6.8 % Eosinophils (%) (Auto) 0.0 % Basophils (%) (Auto) 0.0 % Neutrophils # (Auto) 2.77 K/uL Lymphocytes # (Auto) 0.52 K/uL Monocytes # (Auto) 0.24 K/uL Eosinophils # (Auto) 0.00 K/uL Basophils # (Auto) 0.00 K/uL RDW Standard Deviation 43.1 fL RDW Coefficient of Variation 12.6 % Immature Granulocyte % (Auto) 0.3 % Immature Granulocyte # (Auto) 0.01 K/uL Sodium Level 135 mmol/L Potassium Level 3.4 mmol/L Chloride Level 103 mmol/L Carbon Dioxide Level 24 mmol/L Anion Gap 8.0 mmol/L Blood Urea Nitrogen 22 mg/dl Creatinine 1.52 mg/dl Est Creatinine Clear Calc Drug Dose 59.1 ml/min Estimated GFR () 57.3 Estimated GFR (Non- 49.4 BUN/Creatinine Ratio 14.5 Random Glucose 110 mg/dl Calcium Level 8.1 mg/dl Magnesium Level 1.9 mg/dl Assessment and Plan 57 yo M, day 2 of small bowel obstruction being treated conservatively. Small bowel obstruction - NPO with IV fluids 125cc/hour - Has minimal pain but has PRN Tylenol, Toradol, Morphine as needed - GI Consult - Holding home Aspirin, Lipitor, and Lorazepam while NPO Potential infectious enteritis - Zosyn IV q8h day 2 - Blood cultures pending - Monitoring labs Hx of GERD w/Barretts Esophagus - Continue IV Protonix VTE: SCDs Code status: Full Dispo: On Med/Surg, anticipate DC home in 1-2 days Resident Physician Supervision Note: I interviewed and examined the patient. Discussed with Dr. Hopkins and agree with findings and plan as documented in the note. Any exceptions or clarifications are listed here: None This patient actually feels improved he says his abdomen is less distended and bloated he has had some mild flatus but no bowel movements Vital signs show temperature is 36 9 pulse 64 respiration rate 17 BP 114/67 Of note his hemoglobin dropped 2 g this could be delusional from hydration there is no overt signs of acute GI bleeding but does have history of Juares's esophagitis Physical exam shows abdomen to be with hypoactive bowel sounds tympanitic to percussion and mildly tender to palpation This patient is here with a partial small bowel obstruction with a history of Juares's esophagitis and GERD he has had intermittent issues in the past with similar presentations GI medicine is seen him and is planning on performing a colonoscopy to determine if he has any inflammatory bowel changes in his terminal ileum or colon they have also begun giving him liquids by mouth and will give him a colon prep and obviously if he tolerates this he is not fully obstructed we will continue antibiotics preventatively until further etiologies are ruled out Documented By: Leonel Vera Resident Tracking Resident Involvement: Resident Care Provided Care Provided: Adult Hospital Medicine
[2017-07-19] MEDS ORDERED: MAGNESIUM SULFATE 1GM / D5W 1 GM in PREMIXED IN D5W 100 ML IV SCH (09:00)
--- NOTE | 2017-07-19 09:20 | Gastrointestinal Consultation ---
Gastrointestinal Consultation Date of Consultation: Jul 19, 2017 Attending Physician: Dr. Acevedo Consulting Physician: Dr. Shelton/MERRY Bonilla History of Present Illness Patient is a 57 year old male with a history of GERD and Juares's esophagus as well as colon polyps and history of small bowel obstruction admitted with abdominal pain that began three days prior to arrival. At the onset, the patient states the abdominal pain as was associated with low grade fever, general malaise as well as myalgias and arthralgias. States "I thought I was getting the flu". Over the past three days, he has been having worsening abdominal pain and was evaluated by his PCP yesterday who referred him to the ER due to concern of abdominal distention. On arrival, the patient was hemodynamically stable with normal WBC count of 6.32. CT imaging was performed and significant for mid to distal partial small bowel obstruction with associated inflammatory change within the distal ileum and TI. Patient's lactate level was normal at 0.8 but CRP was elevated at 1.85. Currently, the patient rates his abdominal pain as 4/10 in the lower abdomen without radiation to his back. Patient denies any nausea or vomiting or diarrhea. Passed several small caliber stools yesterday followed by several "normal" bowel movements for a total of 7 bms yesterday. No melena or hematochezia. Patient has been started on IV Zosyn and kept NPO. Last colonoscopy was performed in 2014 which demonstrated a polyp. Past Medical/Surgical History Medical Problems: (1) Abdominal pain Status: Acute (2) Corneal abrasion Status: Acute (3) Dehydration Status: Acute (4) Fever Status: Acute (5) IBS (irritable bowel syndrome) Status: Acute (6) Small bowel obstruction Status: Acute (7) Work related injury Status: Acute Past Medical History: 1. GERD 2. Juares's esophagus 3. Esophageal dyskinesia 4. Campylobacter diarrhea 5. Lumbar radiculopathy 6. Obstructive sleep apnea 7. Right biceps muscle tear 8. Colon polyps Past Surgical History: 1. Appendectomy 2. Hernia repair 3. Back surgery 4. EGD 5. Colonoscopy Family History Sororal history of colon cancer. Negative for IBD. Social History Smoking Status: Former Smoker Alcohol Use: occasionally Marital Status: Occupation Status: employed Allergies Coded Allergies: Sulfa Antibiotics (Verified Allergy, Intermediate, SEVERE HIVES/ITCHING, ) Current Medications Home Meds and Scripts Medications Dose Route/Sig Max Daily Dose Days Date Category Probiotic (Probiotic Product) 1 Cap Cap 1 Cap PO DAILY 07/18/17 Reported Prevacid (Lansoprazole) 30 Mg Capcr 30 Mg PO BID 07/18/17 Reported Lipitor (Atorvastatin Calcium) 20 Mg Tab 20 Mg PO HS 06/08/16 Reported Fiber Laxative (Fiber) Ea 1 Tab PO QAM 04/22/16 Reported Vitamin D (Cholecalciferol) 2,000 Unit Cap 2,000 Inter.unit PO QAM 10/22/14 Reported Aspirin Ec (Aspirin) 81 Mg Tab 81 Mg PO HS 10/22/14 Reported Lorazepam 0.5 Mg Tab 0.5 Mg PO DAILY PRN 10/22/14 Reported Review of Systems Constitutional: + see HPI Eyes: No eye pain, No redness ENT: No problem reported Respiratory: No problem reported Cardiac: No problem reported Abdomen: + see HPI Musculoskeletal: + see HPI Male : No problem reported Neuro: No problem reported Psych: No problem reported Skin: No problem reported Physical Exam Date Time Temp Pulse Resp B/P (MAP) Pulse Ox O2 Delivery O2 Flow Rate FiO2 07/19/17 07:22 36.7 64 17 114/67 (83) 94 Room Air 07/18/17 23:40 Room Air 07/18/17 22:55 36.9 88 18 123/77 (92) 94 Room Air 07/18/17 22:20 36.8 16 141/81 96 Room Air 07/18/17 21:59 84 128/80 96 07/18/17 21:24 84 128/80 96 Room Air 07/18/17 19:01 96 18 123/71 95 Room Air 07/18/17 17:05 108 07/18/17 16:57 109 14 132/87 07/18/17 16:02 38.5 119 18 124/80 98 Room Air General Appearance: no apparent distress Eyes: EOMI ENT: hearing grossly normal Neck: supple Respiratory/Chest: lungs clear, normal breath sounds, no respiratory distress Cardiovascular: regular rate, rhythm, no gallop, no murmur Abdomen: normal bowel sounds, soft, + distended, + tenderness (diffusely) Extremities: no pedal edema Neurologic/Psych: alert, normal mood/affect, oriented x 3 Skin: warm/dry Laboratory Results Last 24 Hours Test 07/18/17 17:31 07/18/17 17:40 07/18/17 18:31 07/18/17 20:01 White Blood Count 6.32 K/uL Red Blood Count 4.63 M/uL Hemoglobin 15.3 g/dL Hematocrit 43.3 % Mean Corpuscular Volume 93.5 fL Mean Corpuscular Hemoglobin 33.0 pg Mean Corpuscular Hemoglobin Concent 35.3 g/dl Platelet Count 194 K/uL Mean Platelet Volume 9.9 fL Neutrophils (%) (Auto) 90.9 % Lymphocytes (%) (Auto) 2.8 % Monocytes (%) (Auto) 5.9 % Eosinophils (%) (Auto) 0.0 % Basophils (%) (Auto) 0.2 % Neutrophils # (Auto) 5.75 K/uL Lymphocytes # (Auto) 0.18 K/uL Monocytes # (Auto) 0.37 K/uL Eosinophils # (Auto) 0.00 K/uL Basophils # (Auto) 0.01 K/uL RDW Standard Deviation 43.0 fL RDW Coefficient of Variation 12.6 % Immature Granulocyte % (Auto) 0.2 % Immature Granulocyte # (Auto) 0.01 K/uL Erythrocyte Sedimentation Rate 8 mm/hr Sodium Level 132 mmol/L Potassium Level 3.9 mmol/L Chloride Level 97 mmol/L Carbon Dioxide Level 26 mmol/L Anion Gap 9.0 mmol/L Blood Urea Nitrogen 21 mg/dl Creatinine 1.35 mg/dl Est Creatinine Clear Calc Drug Dose 66.6 ml/min Estimated GFR () 66.1 Estimated GFR (Non- 57.1 BUN/Creatinine Ratio 15.4 Random Glucose 143 mg/dl Calcium Level 9.0 mg/dl Total Bilirubin 1.1 mg/dl Direct Bilirubin 0.3 mg/dl Aspartate Amino Transf (AST/SGOT) 44 U/L Alanine Aminotransferase (ALT/SGPT) 65 U/L Alkaline Phosphatase 84 U/L C-Reactive Protein 1.85 mg/dl Total Protein 7.6 gm/dl Albumin 3.8 gm/dl Lipase 135 U/L Procalcitonin 0.60 ng/ml Influenza Type A Antigen Neg for Influ A Influenza Type B Antigen Neg for Influ B Urine Color YELLOW Urine Appearance CLEAR Urine pH 6.0 Urine Specific [place] 1.043 Urine Protein NEG Urine Glucose (UA) NEG Urine Ketones TRACE Urine Occult Blood NEG Urine Nitrite NEG Urine Bilirubin NEG Urine Urobilinogen NEG Urine Leukocyte Esterase NEG Lactic Acid Level 0.8 mmol/L Test 07/19/17 07:23 White Blood Count 3.54 K/uL Red Blood Count 4.11 M/uL Hemoglobin 13.3 g/dL Hematocrit 38.3 % Mean Corpuscular Volume 93.2 fL Mean Corpuscular Hemoglobin 32.4 pg Mean Corpuscular Hemoglobin Concent 34.7 g/dl Platelet Count 156 K/uL Mean Platelet Volume 9.7 fL Neutrophils (%) (Auto) 78.2 % Lymphocytes (%) (Auto) 14.7 % Monocytes (%) (Auto) 6.8 % Eosinophils (%) (Auto) 0.0 % Basophils (%) (Auto) 0.0 % Neutrophils # (Auto) 2.77 K/uL Lymphocytes # (Auto) 0.52 K/uL Monocytes # (Auto) 0.24 K/uL Eosinophils # (Auto) 0.00 K/uL Basophils # (Auto) 0.00 K/uL RDW Standard Deviation 43.1 fL RDW Coefficient of Variation 12.6 % Immature Granulocyte % (Auto) 0.3 % Immature Granulocyte # (Auto) 0.01 K/uL Sodium Level 135 mmol/L Potassium Level 3.4 mmol/L Chloride Level 103 mmol/L Carbon Dioxide Level 24 mmol/L Anion Gap 8.0 mmol/L Blood Urea Nitrogen 22 mg/dl Creatinine 1.52 mg/dl Est Creatinine Clear Calc Drug Dose 59.1 ml/min Estimated GFR () 57.3 Estimated GFR (Non- 49.4 BUN/Creatinine Ratio 14.5 Random Glucose 110 mg/dl Calcium Level 8.1 mg/dl Magnesium Level 1.9 mg/dl Impression Patient is a 57 year old male with history of small bowel obstruction admitted with abdominal pain and distention as well as elevated CRP and abnormal CT imaging suggestive of PSBO and possible ileitis. Diff dx: Crohn's vs infection (on abx) vs mass vs false positive CT in the absence of oral enhancement vs other. Plan 1. Advance diet to clear liquids. 2. GoLytely bowel prep this evening. 3. Diagnostic colonoscopy with Dr. Shelton tomorrow for further evaluation. 4. Continue IV Zosyn as ordered. 5. Supportive medical management per primary team. 6. Additional recommendations will be made pending results of testing. Thank you for allowing us to participate in the care of this pleasant patient. If you have any questions or concerns, please do not hesitate to contact us. Agree with MERRY Bonilla as prescribed Abd: Soft, NT, ND, +BS Continue current therapy and supportive care Colonoscopy tomorrow
[2017-07-19] MEDS: PANTOprazole INJ 40 MG in SYRINGE 0 ML IV SCH (11:06)
[2017-07-19] MEDS: POTASSIUM CHLR 10MEQ / WTR IV SCH ×2 (11:12→13:50)
[2017-07-19] MEDS ORDERED: NURSING VERBAL MED ORDER ONE ×2 (14:45→22:00)
[2017-07-19 15:24] VITALS: BP 155/62; PULSE 59; TEMP 36.7; O2SAT 96
[2017-07-19] MEDS ORDERED: LAVAGE SOLUTION 4000ML PO SCH (18:00)
[2017-07-19 23:10] VITALS: BP 157/89; PULSE 56; TEMP 36.4; O2SAT 98
[2017-07-20] MEDS: KETOROLAC TROMETHAMINE 15 MG/ML VIAL IV. SCH ×6 (03:18→23:28)
[2017-07-20] MEDS: ACETAMINOPHEN IV 1,000 MG in EMPTY BAG 0 ML IV SCH ×3 (03:19→18:54)
[2017-07-20] MEDS: PIPERACILL/TAZOBAC IV 3.375 GM in DEXTROSE 5% 100ML 100 ML IV SCH ×3 (05:25→22:16)
[2017-07-20 07:45] VITALS: O2SAT 98
[2017-07-20 07:48] LABS: BASO % 0.4 %; BASO ABS # 0.01 K/uL (0-0.2); EOS % 2.1 %; EOS ABS # 0.05 K/uL (0-0.5); HEMATOCRIT 36.2 % (42-52); HEMOGLOBIN 12.5 g/dL (14.0-18.0); LYMPH % 26.8 %; LYMPH ABS # 0.63 K/uL (1.2-3.4); MEAN CELL VOLUME 93.5 fL (80-100); MEAN CORPUSCULAR HEMOGLOBIN 32.3 pg (25-34); MEAN CORPUSCULAR HGB CONC 34.5 g/dl (32-36); MEAN PLATELET VOLUME 9.4 fL (7.4-10.4); MONO % 11.1 %; MONO ABS # 0.26 K/uL (0.11-0.59); NEUT % 59.6 %; PLATELET COUNT 157 K/uL (130-400); RED CELL DISTRIBUTION WIDTH CV 12.6 % (11.5-14.5); RED CELL DISTRIBUTION WIDTH SD 42.2 fL (36.4-46.3); WHITE BLOOD COUNT 2.35 K/uL (4.8-10.8)
[2017-07-20 07:54] VITALS: BP 148/86; PULSE 60; TEMP 36.6; O2SAT 99
[2017-07-20 08:01] VITALS: O2SAT 99
[2017-07-20 08:22] LABS: CALCIUM 8.6 mg/dl (8.5-10.1); CREATININE 1.16 mg/dl (0.60-1.40); POTASSIUM 3.7 mmol/L (3.5-5.1)
--- NOTE | 2017-07-20 08:36 | Family Medicine Progress Note ---
Progress Note Date of Service Jul 20, 2017. Subjective Pt evaluation today including: conversation w/ patient, physical exam Had Go-Lytely prep, passed a large explosive bowel movement, then lots of watery stool, which is continuing. Feels gassy. Denies any worsening abdominal pain. Eager to go home by tmw because of tattoo appt on Tuesday. Saw pt again after colonoscopy. Discussed results w/Dr Case, colonoscopy was normal, mild diverticulosis. Top ddx is a viral enteritis. Constitutional: No fever, No chills, No sweats, No weakness ENT: No hearing loss Respiratory: No cough, No sputum Abdomen: No nausea, No constipation All Other Systems: Reviewed and Negative Medications Current Inpatient Medications Medications (Trade) Dose Ordered Sig/Humphrey Route Start Time Stop Time Status Last Admin Dose Admin Ioversol (Optiray 320) 100 ml UD PRN IV 07/18/17 17:15 07/22/17 17:14 Ondansetron HCl (Zofran Inj) 4 mg Q6H PRN IV 07/18/17 20:30 08/17/17 20:29 Piperacillin Sod/ Tazobactam Sod 3.375 gm/Dextrose 115 ml @ 28.75 mls/ hr Q8 IV 07/19/17 00:00 07/29/17 00:00 07/20/17 05:25 28.75 MLS/HR Miscellaneous Information (Consult) 1 ea UD PRN N/A 07/18/17 20:30 08/17/17 20:29 Sodium Chloride 1,000 ml @ 125 mls/hr Q8H IV 07/18/17 22:30 08/17/17 22:29 07/19/17 23:30 125 MLS/HR Pantoprazole Sodium 40 mg/ Syringe 10 ml @ 5 mls/min DAILY@11 IV 07/19/17 11:00 08/18/17 10:59 07/19/17 11:06 5 MLS/MIN Acetaminophen 1000 mg/Empty Bag 100 ml @ 400 mls/hr Q8H IV 07/19/17 02:00 08/18/17 01:59 07/20/17 03:19 400 MLS/HR Morphine Sulfate (MoRPHine SULFATE INJ) 2 mg Q4H PRN IV 07/18/17 21:15 08/01/17 21:14 07/19/17 13:50 2 MG Ketorolac Tromethamine (Toradol Inj) 15 mg Q4H IV. 07/18/17 22:30 07/23/17 22:29 07/20/17 05:27 15 MG Polyethylene Glycol/ Electrolytes (Golytely Soln) 16 dose TODAY@1800 PO 07/19/17 18:00 07/20/17 12:00 07/19/17 19:02 16 DOSE Objective Vital Signs Date Time Temp Pulse Resp B/P (MAP) Pulse Ox O2 Delivery O2 Flow Rate FiO2 07/20/17 08:01 99 Room Air 07/20/17 07:54 36.6 60 18 148/86 (106) 99 Room Air 07/19/17 23:25 Room Air 07/19/17 23:10 36.4 56 18 157/89 (111) 98 Room Air 07/19/17 15:24 36.7 59 18 155/62 (93) 96 Room Air 07/19/17 15:15 Room Air Physical Exam General Appearance: WD/WN, no apparent distress Eyes: PERRL ENT: hearing grossly normal Neck: supple, no JVD Respiratory/Chest: lungs clear, normal breath sounds Cardiovascular: regular rate, rhythm, no murmur Abdomen: soft, + distended Extremities: non-tender, no pedal edema Neurologic/Psychiatric: alert, normal mood/affect, oriented x 3 Skin: no rash Laboratory Results Last 24 Hours Test 07/20/17 07:33 White Blood Count 2.35 K/uL Red Blood Count 3.87 M/uL Hemoglobin 12.5 g/dL Hematocrit 36.2 % Mean Corpuscular Volume 93.5 fL Mean Corpuscular Hemoglobin 32.3 pg Mean Corpuscular Hemoglobin Concent 34.5 g/dl Platelet Count 157 K/uL Mean Platelet Volume 9.4 fL Neutrophils (%) (Auto) 59.6 % Lymphocytes (%) (Auto) 26.8 % Monocytes (%) (Auto) 11.1 % Eosinophils (%) (Auto) 2.1 % Basophils (%) (Auto) 0.4 % Neutrophils # (Auto) 1.40 K/uL Lymphocytes # (Auto) 0.63 K/uL Monocytes # (Auto) 0.26 K/uL Eosinophils # (Auto) 0.05 K/uL Basophils # (Auto) 0.01 K/uL RDW Standard Deviation 42.2 fL RDW Coefficient of Variation 12.6 % Immature Granulocyte % (Auto) 0.0 % Immature Granulocyte # (Auto) 0.00 K/uL Sodium Level 141 mmol/L Potassium Level 3.7 mmol/L Chloride Level 107 mmol/L Carbon Dioxide Level 30 mmol/L Anion Gap 4.0 mmol/L Blood Urea Nitrogen 11 mg/dl Creatinine 1.16 mg/dl Est Creatinine Clear Calc Drug Dose 77.5 ml/min Estimated GFR () 79.4 Estimated GFR (Non- 68.5 BUN/Creatinine Ratio 9.4 Random Glucose 103 mg/dl Calcium Level 8.6 mg/dl Assessment and Plan 57 yo M, had increased abdominal distention / discomfort, found to have diverticulosis on colonoscopy Abdominal distention - Unclear if this was true SBO - could have been false positive on CT scan due to no PO contrast - Will slowly advance diet to full liquids this PM and continue advancing as tolerated - Per Dr Case, next colonoscopy in 5 years Potential infectious enteritis - Zosyn IV q8h - Blood cultures so far negative - Monitoring labs Hx of GERD w/Barretts Esophagus - Continue IV Protonix VTE: SCDs Code status: Full Dispo: On Med/Surg, anticipate DC home tomorrow Resident Physician Supervision Note: I interviewed and examined the patient. Discussed with Dr. Hopkins and agree with findings and plan as documented in the note. Any exceptions or clarifications are listed here: None This patient had a relatively unremarkable colonoscopy only with diverticulosis seen there is question that the initial CT scan may have been difficult to interpret due to lack of oral contrast gastroenterology believed to be can advance his diet will start with full liquids and advance as tolerated if he does improve he may build to go home with consideration for capsule enteroscopy in the future as he has had recurrence of his enteritis over the last few years Temperature 36 6 pulse 60 respiration 18 BP 140/86 heart exam is regular lungs are clear abdomen slightly distended it is dull to percussion soft and nontender Advancing diet if and does tolerate diet may be discharged in the next 1-2 days Documented By: Leonel Vera Resident Tracking Resident Involvement: Resident Care Provided Care Provided: Adult Hospital Medicine
[2017-07-20] MEDS: SODIUM CHLORIDE 0.9% 1000ML 1,000 ML IV SCH ×4 (10:51→23:28)
[2017-07-20] MEDS: PANTOprazole INJ 40 MG in SYRINGE 0 ML IV SCH (10:55)
--- NOTE | 2017-07-20 11:42 | Gastroenterology Progress Note ---
Progress Note Date of Service: Jul 20, 2017 Subjective Pt evaluation today including: conversation w/ patient, physical exam, chart review, lab review, review of studies Feeling better today. No overt GI bleeding. Tolerated clears and bowel prep. Medications Current Inpatient Medications Medications (Trade) Dose Ordered Sig/Humphrey Route Start Time Stop Time Status Last Admin Dose Admin Ioversol (Optiray 320) 100 ml UD PRN IV 07/18/17 17:15 07/22/17 17:14 Ondansetron HCl (Zofran Inj) 4 mg Q6H PRN IV 07/18/17 20:30 08/17/17 20:29 Piperacillin Sod/ Tazobactam Sod 3.375 gm/Dextrose 115 ml @ 28.75 mls/ hr Q8 IV 07/19/17 00:00 07/29/17 00:00 07/20/17 05:25 28.75 MLS/HR Miscellaneous Information (Consult) 1 ea UD PRN N/A 07/18/17 20:30 08/17/17 20:29 Sodium Chloride 1,000 ml @ 125 mls/hr Q8H IV 07/18/17 22:30 08/17/17 22:29 07/20/17 10:51 125 MLS/HR Pantoprazole Sodium 40 mg/ Syringe 10 ml @ 5 mls/min DAILY@11 IV 07/19/17 11:00 08/18/17 10:59 07/20/17 10:55 5 MLS/MIN Acetaminophen 1000 mg/Empty Bag 100 ml @ 400 mls/hr Q8H IV 07/19/17 02:00 08/18/17 01:59 07/20/17 10:56 400 MLS/HR Morphine Sulfate (MoRPHine SULFATE INJ) 2 mg Q4H PRN IV 07/18/17 21:15 08/01/17 21:14 07/19/17 13:50 2 MG Ketorolac Tromethamine (Toradol Inj) 15 mg Q4H IV. 07/18/17 22:30 07/23/17 22:29 07/20/17 10:55 15 MG Polyethylene Glycol/ Electrolytes (Golytely Soln) 16 dose TODAY@1800 PO 07/19/17 18:00 07/20/17 12:00 07/19/17 19:02 16 DOSE Objective Vital Signs Date Time Temp Pulse Resp B/P (MAP) Pulse Ox O2 Delivery O2 Flow Rate FiO2 07/20/17 08:01 99 Room Air 07/20/17 07:54 36.6 60 18 148/86 (106) 99 Room Air 07/20/17 07:45 98 Room Air 07/19/17 23:25 Room Air 07/19/17 23:10 36.4 56 18 157/89 (111) 98 Room Air 07/19/17 15:24 36.7 59 18 155/62 (93) 96 Room Air 07/19/17 15:15 Room Air Physical Exam General Appearance: WD/WN, no apparent distress Respiratory/Chest: lungs clear Cardiovascular: regular rate, rhythm Abdomen: normal bowel sounds, non tender, soft Laboratory Results Last 24 Hours Test 07/20/17 07:33 White Blood Count 2.35 K/uL Red Blood Count 3.87 M/uL Hemoglobin 12.5 g/dL Hematocrit 36.2 % Mean Corpuscular Volume 93.5 fL Mean Corpuscular Hemoglobin 32.3 pg Mean Corpuscular Hemoglobin Concent 34.5 g/dl Platelet Count 157 K/uL Mean Platelet Volume 9.4 fL Neutrophils (%) (Auto) 59.6 % Lymphocytes (%) (Auto) 26.8 % Monocytes (%) (Auto) 11.1 % Eosinophils (%) (Auto) 2.1 % Basophils (%) (Auto) 0.4 % Neutrophils # (Auto) 1.40 K/uL Lymphocytes # (Auto) 0.63 K/uL Monocytes # (Auto) 0.26 K/uL Eosinophils # (Auto) 0.05 K/uL Basophils # (Auto) 0.01 K/uL RDW Standard Deviation 42.2 fL RDW Coefficient of Variation 12.6 % Immature Granulocyte % (Auto) 0.0 % Immature Granulocyte # (Auto) 0.00 K/uL Sodium Level 141 mmol/L Potassium Level 3.7 mmol/L Chloride Level 107 mmol/L Carbon Dioxide Level 30 mmol/L Anion Gap 4.0 mmol/L Blood Urea Nitrogen 11 mg/dl Creatinine 1.16 mg/dl Est Creatinine Clear Calc Drug Dose 77.5 ml/min Estimated GFR () 79.4 Estimated GFR (Non- 68.5 BUN/Creatinine Ratio 9.4 Random Glucose 103 mg/dl Calcium Level 8.6 mg/dl Assessment and Plan Assessment: 57 yo CM who presented with Abdominal pain and distention and had abnormal CT scan of the abdomen. Plan: Proceed with colonoscopy
[2017-07-20] MEDS ORDERED: LIDOCAINE HCL 2% 2 ML VIAL (20MG/ML) ONE (11:52)
[2017-07-20] MEDS ORDERED: PROPOFOL IV EMULSION 10 MG/ML 20 ML VIAL IV ONE ×2 (11:52→12:28)
--- NOTE | 2017-07-20 12:31 | GI REPORT ---
Procedure Date: 07/20/2017 12:03 PM Procedure: Colonoscopy Indications: Abnormal CT of the GI tract Medicines: Monitored Anesthesia Care Complications: No immediate complications. Estimated Blood Loss: Estimated blood loss: none. Procedure: Pre-Anesthesia Assessment: - Prior to the procedure, a History and Physical was performed, and patient medications and allergies were reviewed. The patient's tolerance of previous anesthesia was also reviewed. The risks and benefits of the procedure and the sedation options and risks were discussed with the patient. All questions were answered, and informed consent was obtained. Prior Anticoagulants: The patient has taken aspirin, last dose was 3 days prior to procedure. ASA Grade Assessment: III - A patient with severe systemic disease. After reviewing the risks and benefits, the patient was deemed in satisfactory condition to undergo the procedure. After I obtained informed consent, the scope was passed under direct vision. Throughout the procedure, the patient's blood pressure, pulse, and oxygen saturations were monitored continuously. The scope was introduced through the anus and advanced to 20 cm into the ileum. The colonoscopy was performed without difficulty. The patient tolerated the procedure well. The quality of the bowel preparation was good. The terminal ileum, ileocecal valve, appendiceal orifice, and rectum were photographed. Findings: The perianal and digital rectal examinations were normal. Multiple small-mouthed diverticula were found in the sigmoid colon. Impression: - Diverticulosis in the sigmoid colon. - No specimens collected. Recommendation: - Return patient to [facility] for [facility] care. - Resume previous diet. - Continue present medications. - Repeat colonoscopy in 5 years for surveillance. - Return to primary care physician at appointment to be scheduled. Ean Shelton, 07/20/2017 12:30:32 PM This report has been signed electronically. Note Initiated On: 07/20/2017 12:03 PM I attest to the content of the Intraoperative Record and orders documented therein, exceptions below
--- NOTE | 2017-07-20 13:58 | Anesthesiology Progress Note ---
Anesthesia Post Op Note Date & Time Jul 20, 2017 at 13:58 Vital Signs Pain Intensity: 3.0 Vital Signs Past 12 Hours Date Time Temp Pulse Resp B/P (MAP) Pulse Ox O2 Delivery O2 Flow Rate FiO2 07/20/17 13:00 50 18 161/97 (118) 100 Room Air 07/20/17 12:45 54 18 169/91 (117) 99 Room Air 54 07/20/17 12:30 54 12 171/91 (117) 99 Room Air 54 07/20/17 11:45 36.9 52 18 171/91 (117) 98 Room Air 07/20/17 08:01 99 Room Air 07/20/17 07:54 36.6 60 18 148/86 (106) 99 Room Air 07/20/17 07:45 98 Room Air Notes Mental Status: alert / awake / arousable, participated in evaluation Pt Amnestic to Procedure: Yes Nausea / Vomiting: adequately controlled Pain: adequately controlled Airway Patency, RR, SpO2: stable & adequate BP & HR: stable & adequate Hydration State: stable & adequate Anesthetic Complications: no major complications apparent
[2017-07-20 15:14] VITALS: BP 166/85; PULSE 51; TEMP 36.6; O2SAT 96
[2017-07-20 19:29] VITALS: BP 143/79; PULSE 49; TEMP 36.7; O2SAT 96
[2017-07-20 23:00] VITALS: BP 155/90; PULSE 52; TEMP 36.8; O2SAT 96
[2017-07-21] MEDS: ACETAMINOPHEN IV 1,000 MG in EMPTY BAG 0 ML IV SCH (03:10)
[2017-07-21] MEDS: KETOROLAC TROMETHAMINE 15 MG/ML VIAL IV. SCH ×2 (03:10→06:17)
[2017-07-21] MEDS: SODIUM CHLORIDE 0.9% 1000ML 1,000 ML IV SCH (04:57)
[2017-07-21] MEDS: PIPERACILL/TAZOBAC IV 3.375 GM in DEXTROSE 5% 100ML 100 ML IV SCH (06:16)
[2017-07-21 06:18] LABS: BASO % 0.2 %; BASO ABS # 0.01 K/uL (0-0.2); EOS % 1.8 %; EOS ABS # 0.12 K/uL (0-0.5); HEMATOCRIT 36.2 % (42-52); HEMOGLOBIN 12.6 g/dL (14.0-18.0); IG# 0.01 K/uL (0.00-0.02); LYMPH % 16.5 %; LYMPH ABS # 1.08 K/uL (1.2-3.4); MEAN CELL VOLUME 93.5 fL (80-100); MEAN CORPUSCULAR HEMOGLOBIN 32.6 pg (25-34); MEAN CORPUSCULAR HGB CONC 34.8 g/dl (32-36); MEAN PLATELET VOLUME 9.8 fL (7.4-10.4); MONO % 7.2 %; MONO ABS # 0.47 K/uL (0.11-0.59); NEUT % 74.1 %; NEUT ABS # 4.87 K/uL (1.4-6.5); PLATELET COUNT 164 K/uL (130-400); RED CELL DISTRIBUTION WIDTH CV 12.5 % (11.5-14.5); RED CELL DISTRIBUTION WIDTH SD 42.2 fL (36.4-46.3); WHITE BLOOD COUNT 6.56 K/uL (4.8-10.8)
[2017-07-21 06:49] LABS: CALCIUM 8.4 mg/dl (8.5-10.1); CREATININE 1.12 mg/dl (0.60-1.40); POTASSIUM 3.9 mmol/L (3.5-5.1)
[2017-07-21 06:53] LABS: TOTAL PROTEIN 6.3 gm/dl (6.4-8.2)
[2017-07-21] MEDS ORDERED: POTASSIUM CHLORIDE 20 MEQ TABCR PO ONE (07:15)
[2017-07-21 08:18] VITALS: BP 172/90; PULSE 55; TEMP 36.6; O2SAT 96
--- NOTE | 2017-07-21 08:42 | Discharge Instructions ---
Discharge Instructions Date of Service Jul 21, 2017. Admission Reason for Admission: Enteritis, Small Bowel Obstruction Discharge Discharge Diagnosis / Problem: Abdominal pain Discharge Goals Goal(s): Improve disease control Activity Recommendations Activity Limitations: resume your previous activity Lifting Limitations: gradually increase as tolerated . Instructions / Follow-Up Instructions / Follow-Up Follow up with Dr. Shelton and Dr. An in the next 1-2 weeks. Slowly increase your diet as tolerated, if you develop any pain or bloating with certain foods, make a note of them and try cutting them out or go slower on re- introducing them into your diet. If you develop any further fevers, chills, chest pain, shortness of breath, abdominal pain, blood in stool, or any other concerning symptoms, please seek medical attention. Current Hospital Diet Patient's current hospital diet: Regular Diet Discharge Diet Recommended Diet: Regular Diet Procedures Procedures Performed: Colonoscopy 07/20/[address] Shelton - next Colonoscopy in 5 years Pending Studies Studies pending at discharge: no Medical Emergencies . Who to Call and When: Medical Emergencies: If at any time you feel your situation is an emergency, please call 911 immediately. . Non-Emergent Contact Non-Emergency issues call your: Primary Care Provider, Slip Operator . . "Provider Documentation" section prepared by Claire Hopkins. .
[2017-07-21 09:46] VITALS: BP 172/90; PULSE 55; TEMP 36.6; O2SAT 96
--- NOTE | 2017-07-21 10:40 | Discharge Summary ---
Discharge Summary Date of Service Jul 21, 2017. Discharge Summary Admission Date: Jul 18, 2017 at 20:45 Discharge Date: Jul 21, 2017 Discharge Disposition: Home Principal Diagnosis: Abdominal pain Immunizations: Have You Had Influenza Vaccine: Unknown History of Tetanus Vaccine?: Unknown History of Pneumococcal: Unknown History of Hepatitis B Vaccine: Unknown Procedures: CT A/P on admission: IMPRESSION: 1. Findings consistent with partial mid to distal small bowel obstructive change. 2. No evidence for a well-defined obstructing lesion, although there is a significant decrease in caliber of the mid and distal small bowel At several locations suggesting nonspecific small bowel inflammatory change versus enteritis. 3. No evidence for abscess or collection. Consultations: Gastroenterology Medication Reconciliation Continued Medications: Aspirin (Aspirin Ec) 81 Mg Tab 81 MG PO HS Atorvastatin (Lipitor) 20 Mg Tab 20 MG PO HS Cholecalciferol (Vitamin D) 2,000 Unit Cap 2000 INTER.UNIT PO QAM Fiber Laxative (Fiber Laxative) Ea 1 TAB PO QAM Lansoprazole (Prevacid) 30 Mg Capcr 30 MG PO BID, CAP Lorazepam (Lorazepam) 0.5 Mg Tab 0.5 MG PO DAILY PRN for Anxiety Probiotic Product (Probiotic) 1 Cap Cap 1 CAP PO DAILY Discharge Exam Review of Systems: Constitutional: No fever, No chills, No sweats, No weight loss Eyes: No worsening of vision ENT: No hearing loss Respiratory: No cough, No sputum, No wheezing, No shortness of breath, No dyspnea on exertion Cardiovascular: No chest pain, No orthopnea Abdomen: No pain, No nausea, No vomiting, No diarrhea, No constipation Musculoskeletal: No joint pain, No muscle pain Genitourinary - Male: No hematuria, No dysuria, No urinary frequency, No urinary urgency, No urinary hesitancy, No urinary retention Neurologic: No memory loss, No paralysis, No weakness Endocrine: No fatigue Integumentary: No rash Physical Exam: General Appearance: WD/WN, no apparent distress Eyes: normal inspection, PERRL ENT: hearing grossly normal Neck: no adenopathy, no JVD Respiratory/Chest: lungs clear, normal breath sounds, no respiratory distress Cardiovascular: regular rate, rhythm, no murmur, normal peripheral pulses Abdomen / GI: normal bowel sounds, non tender, soft Extremities: no calf tenderness, no pedal edema Neurologic/Psychiatric: alert, normal mood/affect, normal reflexes, oriented x 3 Skin: no rash Hospital Course HPI: Patient is a 57 year old male with IBS and Barrets Esophagus that presents with a 3 week history of worsening abdominal pain. The patient has been having intermittent abdominal pain every 3 days over the last few weeks that at can be anywhere between a 6-10/10, crampy to turning pain, changes location between the upper and lower quadrants, not associated with bowel movements, and does not resolve or worsen with any specific therapies. The patient come in to the hospital today because he began having fever, chills, and muscle aches this morning and was sent over by his PCP Dr. An over concerns of abdominal distention and a bowel obstruction. He has also been complaining of a recent cough with sputum production for the last few days with associated shortness of breath this morning. The patient did have several bowel movements today that started out as hard pellets and progressed to regular stools that were not loose or runny. He is currently complaining of 6/10 abdominal pain after having 4mg of morphine in the ED. The patient also requests not having an NG tube at this time if it can be avoided due to severe gag reflex. The patient has followed with Dr. Shelton in the past for multiple bowel obstructions that have been worked up to be secondary to acute inflammation from IBS. He gets colonoscopies q5 years and had his last one approximately 2 years ago. He has a chronic cough related to Juares esophagus and is slated to have an appointment at [facility] on 08/02/17 for possible Botox injection into the Esophagus. HOSPITAL COURSE; 57 yo M, had increased abdominal distention / discomfort, found to have diverticulosis on colonoscopy Abdominal distention - Unclear if this was true SBO - could have been false positive on CT scan due to no PO contrast - Tolerated advanced diet - Per Dr Shelton, next colonoscopy in 5 years Potential infectious enteritis - Zosyn IV q8h given x 3 days, no other evidence of infection so will DC abx on dischareg - Blood cultures negative x 48 hours Hx of GERD w/Barretts Esophagus - Continue IV Protonix - Pt has follow up with [facility] on VTE: SCDs Code status: Full Dispo: DC'd home in good condition Resident Physician Supervision Note: I interviewed and examined the patient. Discussed with Dr. Hopkins and agree with findings and plan as documented in the note. Any exceptions or clarifications are listed here: None Patient feels much better is tolerating regular diet he will be discharged to follow with outpatient GI medicine for possible capsule enteroscopy Temperature 36 6 pulse 55 respiration 18 BP 170/90 he is in no distress at this time abdomen is soft patient be discharged home to resume his usual home medications and follow-up with GI med Documented By: Leonel Vera Total Time Spent: Greater than 30 minutes This includes examination of the patient, discharge planning, medication reconciliation, and communication with other providers. Discharge Instructions Please refer to the electronic Patient Visit Report (Discharge Instructions) for additional information. Follow-Up - With PCP within a week - With Dr Shelton within 1-2 weeks Additional Copies To RV. Alvarenga MD Resident Tracking Resident Involvement: Resident Care Provided Care Provided: Adult Hospital Medicine
== END 2017-07-21 11:30 | disposition home or self-care (01) | DRG 392 ==
LOC: C.EDB 15:53 → C.MSW 20:45 → ENRESERV 21:10
PROVIDERS: ADMIT Student in an Organized Health Care Education/Training Program; ATTEND Hospitalist
PROC: 0DJD8ZZ Inspection of Lower Intestinal Tract, Via Natural or Artificial Opening Endoscopic (ICD-10-PCS; principal; 2017-07-20 12:15)
DX: A09 Infectious gastroenteritis and colitis, unspecified (principal); R14.0 Abdominal distension (gaseous); K21.9 Gastro-esophageal reflux disease without esophagitis; K22.70 Barrett's esophagus without dysplasia; Z79.82 Long term (current) use of aspirin; Z79.899 Other long term (current) drug therapy; Z88.2 Allergy status to sulfonamides; Z87.891 Personal history of nicotine dependence

== ENCOUNTER → 2017-08-10 | Outpatient (CLI) | payer OTHER ==
[~2017-08-10] MED LIST changes: -ELAS-1213 EXT; +LANS30CA12 PO; -PANT40TA2 PO
[2017-08-10 10:25] LABS: ALT/SGPT 45 U/L (12-78); BLOOD UREA NITROGEN 22 mg/dl (7-18); CALCIUM 9.2 mg/dl (8.5-10.1); CARBON DIOXIDE 27 mmol/L (21-32); CREATININE 1.03 mg/dl (0.60-1.40); GLUCOSE 119 mg/dl (70-99); SODIUM 138 mmol/L (136-145)
[2017-08-10 10:30] LABS: ALKALINE PHOSPHATASE 85 U/L (45-117); AST/SGOT 29 U/L (15-37); CHOLESTEROL 188 mg/dl (0-200); LDL CHOLESTEROL CALCULATED 97 mg/dl; TOTAL PROTEIN 7.8 gm/dl (6.4-8.2)
--- NOTE | 2017-08-10 10:33 | DIAGNOSTIC IMAGING REPORT ---
GASTRIC EMPTYING CLINICAL HISTORY: 57 years-old Male presenting with K20.9 [id number] Bloated abdomen. TECHNIQUE: Following the oral administration of 1.161 mCi of technetium 99m sulfur colloid in egg sandwich and 8 ounces of water, static abdominal images are obtained anteriorly and posteriorly at 0 minutes, 1 hour, 2 hour, and 4 hour time intervals. Gastric emptying was calculated utilizing the geometric mean method. COMPARISON: CT from 07/18/2017. FINDINGS: There is approximately 19% activity remaining at the 1 hour time interval, 4% remaining at the 2 hour time interval (normal is less than 60%), and less than 10%% activity remaining prior to the 4 hour time interval (normal is less than 10%). IMPRESSION: Normal gastric emptying of solids. Electronically signed by: Carlos Merrill M.D. 08/10/2017 10:31 AM Dictated Date/Time: 08/10/2017 10:30 AM
[2017-08-10 10:38] LABS: HEMOGLOBIN A1C 5.9 % (4.5-5.6)
== END | disposition home or self-care (01) ==
LOC: C.NUCL 07:34
PROVIDERS: ATTEND Registered Nurse
DX: Z48.89 Encounter for other specified surgical aftercare (principal); M10.071 Idiopathic gout, right ankle and foot; K20.9 Esophagitis, unspecified; R14.0 Abdominal distension (gaseous)

== ENCOUNTER → 2017-08-15 | Day surgery (SDC) | payer OTHER ==
[~2017-08-15] VITALS: Ht 185.4 cm; Wt 91.0 kg
[2017-08-15 08:00] VITALS: BP 152/87; PULSE 66; TEMP 36.4; O2SAT 98; Ht 185.4 cm; Wt 91.0 kg
[2017-08-15 11:04] VITALS: BP 154/99; PULSE 90; TEMP 36.7; O2SAT 98
--- NOTE | 2017-08-16 14:35 | Procedure Note ---
Breath Hydrogen Test Interpretation Assessment: Normal Lactulose breath test, without evidence of Small Intestinal Bacterial Overgrowth Plan: Return to Ordering physician for further evaluation and recommendations.
== END | disposition home or self-care (01) ==
LOC: C.MTU 07:44
PROVIDERS: ATTEND Internal Medicine
DX: R14.0 Abdominal distension (gaseous) (principal); K20.9 Esophagitis, unspecified

== ENCOUNTER → 2017-08-18 | Day surgery (SDC) | payer OTHER ==
[2017-08-01 14:47] VITALS: Ht 185.4 cm; Wt 90.9 kg
[~2017-08-18] VITALS: Ht 185.4 cm; Wt 90.9 kg
[~2017-08-18] MED LIST changes: +LIDOCAINE HCL 2% 2 ML VIAL (20MG/ML) ONE; +MIDAZOLAM HCL 1 MG/ML 2ML VIAL ONE; +PROPOFOL IV EMULSION 10 MG/ML 20 ML VIAL IV ONE; +SODIUM CHLORIDE 0.9% 500ML 500 ML IV ONE
[2017-08-18 12:17] VITALS: TEMP 36.8
--- NOTE | 2017-08-18 12:48 | Endo History and Physical ---
History & Physical Date of Service: Aug 18, 2017. Chief Complaint: ESOPHAGITIS Referring Physician: DR. TREJO History of Present Illness 57 yo CM who presents for EGD secondary to esophagitis. Past Medical History Diabetes, Arthritis, Fractures, Gastrointestinal Disorder, Anxiety, Reflux, High Cholesterol, Sleep Apnea, Kidney Disease Past Surgical History Hx Cardiac Surgery: No Hx Internal Defibrillator: No Hx Pacemaker: No Hx Abdominal Surgery: Yes (APPY, HERNIA REPAIR) Hx Post-Op Nausea and Vomiting: No Hx Cancer Surgery: No Hx Thoracic Surgery: No Hx Orthopedic: Yes (L5-S1 DISCECTOMY, LEFT 4TH FINGER PARTIAL AMPUTATION, RT FOOT SURGERY) Hx Urinary Tract Surgery: No Family History Colon CA, Polyp, IBD Social History Smoking Status: Former Smoker Hx Substance Use: No Hx Alcohol Use: Yes (1-2 DRINKS DAILY) Allergies Coded Allergies: Sulfa Antibiotics (Verified Allergy, Intermediate, SEVERE HIVES/ITCHING, ) Current Medications Reported Home Medications Medications Dose Route/Sig Max Daily Dose Days Date Category Prevacid (Lansoprazole) 30 Mg Capcr 30 Mg PO BID 07/18/17 Reported Lipitor (Atorvastatin Calcium) 20 Mg Tab 20 Mg PO HS 06/08/16 Reported Fiber Laxative (Fiber) Ea 1 Tab PO QAM 04/22/16 Reported Vitamin D (Cholecalciferol) 2,000 Unit Cap 2,000 Inter.unit PO QAM 10/22/14 Reported Aspirin Ec (Aspirin) 81 Mg Tab 81 Mg PO HS 10/22/14 Reported Lorazepam 0.5 Mg Tab 0.5 Mg PO DAILY PRN 10/22/14 Reported Vital Signs Weight (Kilograms): 90.91 Height (Feet): 6 Height (Inches): 1 Date Time Temp Pulse Resp B/P (MAP) Pulse Ox O2 Delivery O2 Flow Rate FiO2 08/18/17 12:17 36.8 63 18 157/98 (117) 98 Room Air Physical Exam General Appearance: WD/WN, no apparent distress Respiratory/Chest: Auscultation: breath sounds normal Cardiovascular: Heart Auscultation: RRR Abdomen: Bowel Sounds: normal Inspection & Palpation: soft, non-distended, no tenderness, guarding & rebound Assessment and Plan Assessment: 57 yo CM who presents for EGD secondary to esophagitis. Plan: Proceed with EGD.
--- NOTE | 2017-08-18 13:19 | Discharge Instructions ---
Endoscopy Patient Instructions Date / Procedure(s) Performed Aug 18, 2017. EGD Allergy Information Coded Allergies: Sulfa Antibiotics (Verified Allergy, Intermediate, SEVERE HIVES/ITCHING, ) Discharge Date / Findings Aug 18, 2017. Hiatal hernia Distal esophageal biopsies Medication Instructions Stopped Medication(s): ASPIRIN 81MG PO LAST DOSE 08/18/17 OK to resume all medications today as prescribed Reported Home Medications Medications Dose Route/Sig Max Daily Dose Days Date Category Prevacid (Lansoprazole) 30 Mg Capcr 30 Mg PO BID 07/18/17 Reported Lipitor (Atorvastatin Calcium) 20 Mg Tab 20 Mg PO HS 06/08/16 Reported Fiber Laxative (Fiber) Ea 1 Tab PO QAM 04/22/16 Reported Vitamin D (Cholecalciferol) 2,000 Unit Cap 2,000 Inter.unit PO QAM 10/22/14 Reported Aspirin Ec (Aspirin) 81 Mg Tab 81 Mg PO HS 10/22/14 Reported Lorazepam 0.5 Mg Tab 0.5 Mg PO DAILY PRN 10/22/14 Reported Provider Instructions Activity Restrictions - No exercising or heavy lifting for 24 hours. - Do not drink alcohol the day of the procedure. - Do not drive a car or operate machinery until the day after the procedure. - Do not make any important decisions or sign important papers in 24 hours after the procedure. Following Day: - Return to full activity which may include returning to work/school. Diet Start your diet with liquids and light foods (jello, soup, juice, toast). Then eat your usual diet if not nauseated. Treatment For Common After Affects For mild abdominal pain, bloating, or excessive gas: - Rest - Eat lightly - Lie on right side Follow-Up Information Follow-up with DR. TREJO as scheduled Anesthesia Information What You Should Know You have had a procedure that required some medicine to reduce anxiety and discomfort. This treatment is called moderate sedation. After receiving the treatment, you may be sleepy, but you will be able to breathe on your own. The effects of the treatment may last for several hours. Follow these instructions along with Activity/Diet recommendations noted above: * Do NOT do anything where dizziness or clumsiness would be dangerous. * Rest quietly at home today, then you can be up and about tomorrow. * Have a responsible person stay with you the rest of today. * You may have had an I.V. today. If so, you may take the dressing off later today. Recommendations Call your doctor if: * Trouble breathing * Continuous vomiting for more than 24 hours * Temperature above 101 degrees * Severe abdominal pain or bloating * Pain not relieved by pain medicine ordered * There is increased drainage or redness from any incision * A large amount of rectal bleeding greater than 2-3 tablespoons. (If you had a polyp/s removed or have hemorrhoids, a small amount of blood - from the rectum is to be expected.) * You have any unanswered questions or concerns. IN THE EVENT OF A SERIOUS EMERGENCY, GO TO THE NEAREST EMERGENCY ROOM Your discharge instructions were prepared by provider Ean Shelton. Patient Instructions Signature Page Norbert Sousa Patient (or Guardian) Signature/Date: I have read and understand the instructions given to me by my caregivers. Caregiver/RN/Doctor Signature/Date: The above-named patient and/or guardian has received patient instructions on this date. + Original Patient Signature Page (only) stays with chart. Please make copy for patient.
--- NOTE | 2017-08-18 13:31 | GI REPORT ---
Procedure Date: 08/18/2017 12:58 PM Procedure: Upper GI endoscopy Indications: Suspected esophagitis Medicines: Monitored Anesthesia Care Complications: No immediate complications. Estimated Blood Loss: Estimated blood loss: none. Procedure: Pre-Anesthesia Assessment: - Prior to the procedure, a History and Physical was performed, and patient medications and allergies were reviewed. The patient's tolerance of previous anesthesia was also reviewed. The risks and benefits of the procedure and the sedation options and risks were discussed with the patient. All questions were answered, and informed consent was obtained. Prior Anticoagulants: The patient has taken aspirin, last dose was 2 days prior to procedure. ASA Grade Assessment: II - A patient with mild systemic disease. After reviewing the risks and benefits, the patient was deemed in satisfactory condition to undergo the procedure. After obtaining informed consent, the endoscope was passed under direct vision. Throughout the procedure, the patient's blood pressure, pulse, and oxygen saturations were monitored continuously. The scope was introduced through the mouth, and advanced to the second part of duodenum. The upper GI endoscopy was accomplished without difficulty. The patient tolerated the procedure well. Findings: The Z-line was irregular. Biopsies were taken with a cold forceps for histology. A medium-sized hiatal hernia was present. The examined duodenum was normal. Impression: - Z-line irregular. Biopsied. - Medium-sized hiatal hernia. - Normal examined duodenum. Recommendation: - Resume previous diet. - Continue present medications. - Await pathology results. - Return to primary care physician as previously scheduled. Ean Shelton, 08/18/2017 1:30:21 PM This report has been signed electronically. Note Initiated On: 08/18/2017 12:58 PM I attest to the content of the Intraoperative Record and orders documented therein, exceptions below
--- NOTE | 2017-08-18 13:52 | Anesthesiology Progress Note ---
Anesthesia Post Op Note Date & Time Aug 18, 2017 at 13:52 Vital Signs Pain Intensity: 0 Vital Signs Past 12 Hours Date Time Temp Pulse Resp B/P (MAP) Pulse Ox O2 Delivery O2 Flow Rate FiO2 08/18/17 13:37 72 18 190/92 (124) 95 Room Air 08/18/17 13:25 77 18 157/95 (115) 93 Room Air 08/18/17 12:17 36.8 63 18 157/98 (117) 98 Room Air Notes Mental Status: alert / awake / arousable, participated in evaluation Pt Amnestic to Procedure: Yes Nausea / Vomiting: adequately controlled Pain: adequately controlled Airway Patency, RR, SpO2: stable & adequate BP & HR: stable & adequate Hydration State: stable & adequate Anesthetic Complications: no major complications apparent
[2017-08-18 13:58] VITALS: BP 169/100; PULSE 66; O2SAT 98
== END | disposition home or self-care (01) ==
LOC: C.GI 12:04
PROVIDERS: ATTEND Internal Medicine
DX: K20.9 Esophagitis, unspecified (principal); K44.9 Diaphragmatic hernia without obstruction or gangrene; K22.8 Other specified diseases of esophagus; E11.9 Type 2 diabetes mellitus without complications; F41.9 Anxiety disorder, unspecified; E78.00 Pure hypercholesterolemia, unspecified; M19.90 Unspecified osteoarthritis, unspecified site; Z79.82 Long term (current) use of aspirin; Z87.891 Personal history of nicotine dependence; Z90.89 Acquired absence of other organs; Z79.899 Other long term (current) drug therapy; Z98.890 Other specified postprocedural states; Z88.2 Allergy status to sulfonamides; Z80.0 Family history of malignant neoplasm of digestive organs

== ENCOUNTER → 2017-12-29 | Outpatient (CLI) | payer OTHER ==
[~2017-12-29] MED LIST changes: -LIDOCAINE HCL 2% 2 ML VIAL (20MG/ML) ONE; -MIDAZOLAM HCL 1 MG/ML 2ML VIAL ONE; -PROPOFOL IV EMULSION 10 MG/ML 20 ML VIAL IV ONE; -SODIUM CHLORIDE 0.9% 500ML 500 ML IV ONE
--- NOTE | 2017-12-29 08:47 | DIAGNOSTIC IMAGING REPORT ---
L HIP UNILATERAL 2 VIEWS CLINICAL HISTORY: 57 years-old Male presenting with M25.552 Acute hip pain, left, pain for a few weeks. TECHNIQUE: Frontal and frog-leg lateral views of the left hip were obtained. COMPARISON: Comparison made to CT of abdomen pelvis from 07/18/2017. FINDINGS: Vasectomy clips noted. Left hip joint congruent. No joint space loss. No significant osteophytosis. Left femoral neck intact. Visualized portion of the bony pelvis intact. No acute fracture or malalignment. Mild degenerative changes of the lower lumbar spine suggested. IMPRESSION: No acute osseous injury or advanced degenerative change. Electronically signed by: Carlos Merrill M.D. 12/29/2017 8:46 AM Dictated Date/Time: 12/29/2017 8:42 AM
== END | disposition home or self-care (01) ==
LOC: C.LAB1850 08:28
PROVIDERS: ATTEND Physician Assistant
DX: M25.552 Pain in left hip (principal)

== ENCOUNTER 2021-07-25 13:14 | Observation (INO) ==
[2021-07-25] MEDS ORDERED: LORazepam 2 MG/1 ML VIAL IV STA (13:25)
[2021-07-25] MEDS ORDERED: SODIUM CHLORIDE 0.9% 1000ML 1,000 ML IV ONE ×2 (13:25→15:23)
--- NOTE | 2021-07-25 13:31 | Emergency Department Note ---
Impression & Plan Substernal chest pain, Vertigo, Near syncope ED Provider Note Name: MARIJA KINGSLEY Age: 61 Sex: M Arrives Via: Ambulance Informant: Patient, EMS ED Provider: Jesus Glasgow MD Chief Complaint: chest pain and dizzy Impression: As per impressions above Medical Decision Making: Pleasant 61-year-old gentleman with a history of hypertension, dyslipidemia, INNA, hyper glycemia arrives for evaluation of worsening dizziness/near syncope as well as an episode of crushing substernal chest pain prior to arrival. Patient without history of stroke or CVA though multiple risk factors including father and had a [facility] in his 60s as well. On arrival his EKG is unremarkable his chest pain has resolved. He did receive some aspirin prior to arrival as well. Patient has no neurologic deficits but does note that the tingling was worse in his left arm which seemed week earlier. Labs are unremarkable. A CT of the head is negative. And patient is stable. He is continuously complaining of spinning vision and lightheadedness. He was given some Ativan and meclizine w ith really minimal improvement. He was also patient did recently have a stimulator placed in his chest for his obstructive sleep apnea but is unclear exactly how getting an MRI of this would be affected and thus this will need further work-up. However he will need further work-up and monitoring given his episode of chest pain as well as concerns that he may have an underlying CVA. Discussed bring him in and patient is very much agreeable to hospitalization at this time. Prior Medical Record and Triage/Nursing Notes reviewed by Me Additional history obtained from ems Differentials:Cardiac ischemia, aortic dissection, pulmonary embolism, pneumothorax, pneumonia, pericarditis, myocarditis, esophageal rupture, GERD, cholecystitis, pancreatitis, musculoskeletal, as well as other pathologies. Benign positional vertigo, dehydration, hypovolemia, anemia, tumor, infection, hypoglycemia, electrolyte abnormalities, cardiac sources, intracerebral event, toxicologic, neurologic, as well as other pathologies. Vital Signs: reviewed and remarkable for HTN Interventions: 1 L normal saline IV, Ativan 1 mg IV, meclizine 25 mg p.o. Labs:Reviewed and remarkable for no significant abnormalities Imagin view chest x-ray no acute findings. CT of the head negative per radiologist EKG:Per My Interpretation: Indication Chest Pain: NSR 75 bpm, qtc 469. No Ectopy. No Ischemia. Compared to EKG 02/21/18, no significant changes. Consults:Dr Alec VAZ Hospitalist Plan: Disposition: Hospitalization Condition: Good History of Present Illness:61-year-old gentleman arrives for evaluation of dizziness. Patient notes he awoke this morning feeling severely lightheaded, dizzy near syncopal and feeling he could not catch his breath. He notes that this worsened throughout the morning until he called 911. EMS arrived and patient notes that he started developing worsening crushing chest pain. EKG at that time was unremarkable. He was given Ativan in route and the chest pain has subsided. He states he feels very lightheaded and like he is about to pass out. Says he feels like he just cannot take a deep breath. Patient notes recent [place] and back but no other recent travel. He denies any chest pain or shortness of breath the last few days and states he was feeling well until he woke up this morning. He does admit drinking alcohol last night but denies passing out or vomiting. Patient denies any recent head o r neck or chest trauma. He denies any nor productive cough. He has no runny nose, sore throat, back pain, abdominal pain, urinary/bowel symptoms, leg swelling, calf pain eating/bruising, fevers, chills nausea/vomiting. Patient received aspirin 324 mg prior to arrival. Patient notes that he makes symptoms worse and laying down seems to make them better. He has no history of similar symptoms. Patient did have a rectal device placed under his tongue for obstructive sleep apnea about 2 months ago and states he has had no pain there nor swelling or recent fevers. ROS: See above HPI for pertinent positives & negatives. A total of 10 systems reviewed and were otherwise negative. Past Medical History:See Below Past Surgical History:See Below Family History:See Below Social History:See Below Home Medications:See Below Allergies:See Below Vitals:Blood Pressure: 155/93, Pulse 80, RR 18, T 36.8C, O2 95% on RA Physical Exam: GENERAL: Patient is uncomfortable appearing and in moderate distress. EYES: No scleral icterus, unremarkable pupils. ENT: Mucous membranes moist, no nasal congestion. NECK: No masses appreciated, nomeningismus, trachea is midline. RESPIRATORY: No dyspnea. Clear to auscultation and equal bilaterally. No wheeze, no rhonchi. CARDIOVASCULAR: Regular rate and rhythm.No murmurs, rubs, gallops appreciated. GASTROINTESTINAL: Abdomen soft, non-tender, no peritonitis.Bowel sounds positive.No masses appreciated. BACK: No midline tenderness, no CVA tenderness EXTREMITIES: Normal motion all extremities, no cyanosis, no edema. NEUROLOGIC: Alert and oriented, no acute motor or sensory deficits, no focal weakness, cranial nerves grossly intact. SKIN: Heavily tattooed. No rash, no jaundice, no diaphoresis. PSYCH: Appropriate GCS: 15 ED Course: Times/Reassessments: Patient mildly improved though still feeling dizzy and and vertiginous. Jesus Glasgow MD Past Med/Surg History Medical History (Updated 07/25/21 @ 15:27 by Jesus Glasgow MD) Anxiety Cervical spinal stenosis Cervicalgia Chronic cough COVID-19 COVID-19 virus infection Degenerative disc disease, cervical Degenerative disc disease, lumbar Gastroesophageal reflux disease (02/12/11) GERD (gastroesophageal reflux disease) Hearing deficit History of colon polyps HLD (hyperlipidemia) Hx of intestinal obstruction Hypertension Kidney stones Migraine Myofascial pain Osteoarthritis Sleep apnea no device Small bowel obstruction Surgical History H/O removal of cyst x2 off neck History of appendectomy History of colonoscopy History of esophagogastroduodenoscopy (EGD) History of left inguinal hernia repair History of lumbar discectomy History of removal of cyst off finger x2 History of wisdom tooth extraction Hx of vasectomy Status post correction of deviated nasal septum Status post right foot surgery Family History Brother Family hx of colon cancer Sister Colorectal cancer Father Myocardial infarction Aortic aneurysm Grandfather (Maternal) Myocardial infarction Other Heart disease No family history of adverse response to anesthesia Denies family history of Ovarian cancer Prostate cancer Breast cancer Social History Smoking Status: Former smoker Second Hand Exposure: No; Hx Alcohol Use: Yes Alcohol type: hard liquor Hx Substance Use: No Preferred Language: [place] Communication Ability: Effective Clothing Presser Required: No Beliefs That Will Affect Care: None Current Living Situation: Significant Other current occupational status: employed Feels Safe at Home: Yes Assistive Devices: Contacts and Glasses Allergies Allergies Allergy/AdvReac Type Severity Reaction Status Date / Time Sulfa (Sulfonamide Allergy Intermediate SEVERE Verified 07/25/21 14:53 Antibiotics) HIVES/ITCHING buspirone [From BuSpar] Allergy Unknown "I didnt Verified 07/25/21 14:53 tolerate well" sildenafil [From Viagra] AdvReac Intermediate "sets off Verified 07/25/21 14:53 my acid reflux" gabapentin AdvReac Drowsiness Verified 07/25/21 14:53 Home Meds Home Medications Medication Instructions Recorded Confirmed cholecalciferol (vitamin D3) 50 2,000 unit PO QAM 02/21/18 07/25/21 mcg (2,000 unit) tablet glucosamine sulfate 500 mg tablet 2 tab PO HS 08/01/18 07/25/21 (Glucosamine) dextrin 3 gram/3.5 gram oral 3 g PO QAM 07/25/21 07/25/21 powder (Fiber (dextrin)) Previous Rx's Medication Instructions Recorded amlodipine 10 mg tablet 10 mg PO QAM #90 tab 09/01/20 lansoprazole 30 mg capsule,delayed 30 mg PO BID #180 cap 10/29/20 release atorvastatin 20 mg tablet 20 mg PO HS #90 tab 06/11/21 Results & Data (ED) Vital Signs Vital Signs - 24 hr 07/25/21 12:57 07/25/21 13:21 07/25/21 14:57 Temperature 36.8 C Temperature Source Oral Pulse Rate 75 Pulse Rate [Finger] 80 Pulse Rhythm Regular Pulse Rhythm [Finger] Regular Pulse Strength Normal Pulse Strength [Finger] Normal Respiratory Rate 20 18 Respiratory Effort / Characteristics Non-Labored Spontaneous Short of Breath SOB on Exertion Non-Labored Respiratory Depth Normal Normal Respiratory Pattern Regular Blood Pressure 174/97 H Blood Pressure [Right Arm] 155/93 H Blood Pressure Mean 122 Blood Pressure Mean [Right Arm] 113 Blood Pressure Position Sitting Blood Pressure Position [Right Arm] Sitting Pulse Oximetry 98 99 95 Oxygen Delivery Method Room Air Room Air Room Air Sepsis Recent Fever Within 48 Hours No Sepsis New/Unexplained Change in Mental Status No Sepsis Action Taken by Nursing No Action Required Laboratory Data Result diagrams: 07/25/21 13:25 07/25/21 13:25 Lab Results 07/25/21 07/25/21 07/25/21 Range/Units 13:25 13:25 13:25 WBC 6.76 (4.8-10.8) K/uL RBC 4.40 L (4.7-6.1) M/uL Hgb 14.5 (14.0-18.0) g/dL Hct 41.4 L (42-52) % MCV 94.1 (80-100) fL MCH 33.0 (25-34) pg MCHC 35.0 (32-36) g/dL RDW Std Deviation 41.4 (36.4-46.3) fL RDW Coeff of Lexi 12.1 (11.5-14.5) % Plt Count 222 (130-400) K/uL MPV 9.5 (7.4-10.4) fL Immature Gran % (Auto) 0.3 % Neut % (Auto) 79.4 % Lymph % (Auto) 12.7 % Sully % (Auto) 7.2 % Eos % (Auto) 0.3 % Baso % (Auto) 0.1 % Neut # (Auto) 5.36 (1.4-6.5) K/uL Lymph # (Auto) 0.86 L (1.2-3.4) K/uL Sully # (Auto) 0.49 (0.11-0.59) K/uL Eos # (Auto) 0.02 (0-0.5) K/uL Baso # (Auto) 0.01 (0-0.2) K/uL Immature Gran # (Auto) 0.02 (0.00-0.02) K/uL D-Dimer 260 (0-500) ug/L FEU Sodium 136 (136-145) mmol/L Potassium 3.8 (3.5-5.1) mmol/L Chloride 102 (98-107) mmol/L Carbon Dioxide 24 (21-32) mmol/L Anion Gap 10 (3-11) BUN 17 (6-23) mg/dl Creatinine 0.94 (0.6-1.4) mg/dl Est Cr Clr Drug Dosing 92.9 ml/min Est GFR ( Amer) 99.6 ml/min Est GFR (Non-Af Amer) 85.9 ml/min BUN/Creatinine Ratio 18.1 (10-20) Glucose 164 H (70-99(Fasting)) mg/dl Calcium 9.5 (8.5-10.1) mg/dl Magnesium 1.6 L (1.7-2.4) mg/dl Total Bilirubin 0.6 (0.2-1.0) mg/dl Direct Bilirubin 0.1 (0-0.2) mg/dl AST 27 (13-39) U/L ALT 31 (7-52) U/L Alkaline Phosphatase 68 (34-104) U/L Troponin I < 0.03 (0-0.04) ng/ml Total Protein 7.4 (6.0-8.3) gm/dl Albumin 4.4 (3.4-5.0) gm/dl Lipase 39 (11-82) U/L Urine Color Urine Appearance (Clear) Urine pH (4.5-7.5) Ur Specific Grover (1.000-1.030) Urine Protein (Negative) Urine Glucose (UA) (Negative) Urine Ketones (Negative) Urine Blood (Negative) Urine Nitrite (Negative) Urine Bilirubin (Negative) Urine Urobilinogen (Negative) Ur Leukocyte Esterase (Negative) Influ A Molecular Assay (Negative) Influ B Molecular Assay (Negative) SARS-CoV-2, RNA, NAAT (NEGATIVE) 07/25/21 07/25/21 07/25/21 Range/Units 13:29 13:29 14:10 WBC (4.8-10.8) K/uL RBC (4.7-6.1) M/uL Hgb (14.0-18.0) g/dL Hct (42-52) % MCV (80-100) fL MCH (25-34) pg MCHC (32-36) g/dL RDW Std Deviation (36.4-46.3) fL RDW Coeff of Lexi (11.5-14.5) % Plt Count (130-400) K/uL MPV (7.4-10.4) fL Immature Gran % (Auto) % Neut % (Auto) % Lymph % (Auto) % Sully % (Auto) % Eos % (Auto) % Baso % (Auto) % Neut # (Auto) (1.4-6.5) K/uL Lymph # (Auto) (1.2-3.4) K/uL Sully # (Auto) (0.11-0.59) K/uL Eos # (Auto) (0-0.5) K/uL Baso # (Auto) (0-0.2) K/uL Immature Gran # (Auto) (0.00-0.02) K/uL D-Dimer (0-500) ug/L FEU Sodium (136-145) mmol/L Potassium (3.5-5.1) mmol/L Chloride (98-107) mmol/L Carbon Dioxide (21-32) mmol/L Anion Gap (3-11) BUN (6-23) mg/dl Creatinine (0.6-1.4) mg/dl Est Cr Clr Drug Dosing ml/min Est GFR ( Amer) ml/min Est GFR (Non-Af Amer) ml/min BUN/Creatinine Ratio (10-20) Glucose (70-99(Fasting)) mg/dl Calcium (8.5-10.1) mg/dl Magnesium (1.7-2.4) mg/dl Total Bilirubin (0.2-1.0) mg/dl Direct Bilirubin (0-0.2) mg/dl AST (13-39) U/L ALT (7-52) U/L Alkaline Phosphatase (34-104) U/L Troponin I (0-0.04) ng/ml Total Protein (6.0-8.3) gm/dl Albumin (3.4-5.0) gm/dl Lipase (11-82) U/L Urine Color Yellow Urine Appearance Clear (Clear) Urine pH >= 9.0 H (4.5-7.5) Ur Specific Grover 1.015 (1.000-1.030) Urine Protein Negative (Negative) Urine Glucose (UA) Negative (Negative) Urine Ketones Negative (Negative) Urine Blood Negative (Negative) Urine Nitrite Negative (Negative) Urine Bilirubin Negative (Negative) Urine Urobilinogen Negative (Negative) Ur Leukocyte Esterase Negative (Negative) Influ A Molecular Assay Negative (Negative) Influ B Molecular Assay Negative (Negative) SARS-CoV-2, RNA, NAAT NEGATIVE (NEGATIVE) Administered Medications Discontinued Medications Sodium Chloride (Nss 1000ml) 1,000 mls @ 999 mls/hr IV .Q1H1M ONE Stop: 07/25/21 14:25 Last Infusion: 07/25/21 14:44 Dose: 999 mls/hr Documented by: [id number] Admin: 07/25/21 13:43 Dose: 999 mls/hr Documented by: [id number] Lorazepam (Lorazepam 2 Mg/1 Ml Vial) 1 mg IV NOW STA Stop: 07/25/21 13:26 Last Admin: 07/25/21 13:42 Dose: 1 mg Documented by: [id number] Imaging Data Radiologist's Impression: Chest X-Ray 07/25/21 13:25 XR chest 1V portable HISTORY: Shortness of breath. COMPARISON: Chest 02/21/2018. FINDINGS: No pneumothorax. No pleural effusions. The cardiac silhouette remains mildly enlarged. No focal lung consolidations to suggest pneumonia. No evidence for pulmonary edema. Right-sided stimulator device is noted with the leads extending into the neck. IMPRESSION: No acute process. ACT 112: Negative or not required by law. Electronically signed by: Blaise Valladares M.D. 07/25/2021 2:[address] 07/25/21 14:[address] DOSE: 614.27 mGy.cm HISTORY: near-syncope, dizzy TECHNIQUE: Multiaxial CT images of the head were performed without the use of intravenous contrast. Automated exposure control was utilized for this study. A dose lowering technique was utilized adhering to the principles of ALARA. Comparison: None. Findings: The paranasal sinuses and mastoid air cells are clear. The calvarium and skull base are intact. The ventricles and sulci are within normal limits. There is no mass, hematoma, midline shift, or acute infarct. Impression: No acute intracranial abnormality. ACT 112: Negative or not required by law. Electronically signed by: Blaise Valladares M.D. 07/25/2021 3:13 PM Discharge Plan Visit Data Chief Complaint: Chest Pain Stated Complaint: chest pain ED Provider: Jesus Glasgow Discharge Problem: Substernal chest pain, Vertigo, Near syncope Forms Stand Alone Forms: [employer] Prescriptions Prescriptions: No Action amlodipine 10 mg tablet 10 mg PO QAM Qty: 90 RF: 3 lansoprazole 30 mg capsule,delayed release(DR/EC) 30 mg PO BID Qty: 180 RF: 3 atorvastatin 20 mg tablet 20 mg PO HS Qty: 90 RF: 3 glucosamine sulfate [Glucosamine] 500 mg Tablet 2 tab PO HS RF: 0 cholecalciferol (vitamin D3) 2,000 unit Tablet 2,000 unit PO QAM RF: 0 Fiber (dextrin) 3 gram/3.5 gram powder 3 g PO QAM RF: 0 Referrals Referrals: Josette Suazo MD [Primary Care Provider] -
[2021-07-25 13:33] LABS: Basophils # (auto) 0.01 K/uL (0-0.2); Basophils % (auto) 0.1 %; Eosinophils # (auto) 0.02 K/uL (0-0.5); Eosinophils % (auto) 0.3 %; Hematocrit (blood only) 41.4 % (42-52); Hemoglobin 14.5 g/dL (14.0-18.0); Immature Granulocytes # (auto) 0.02 K/uL (0.00-0.02); Immature Granulocytes % (auto) 0.3 %; Lymphocytes # (auto) 0.86 K/uL (1.2-3.4); Lymphocytes % (auto) 12.7 %; Mean Corpuscular Volume 94.1 fL (80-100); Mean Platelet Volume 9.5 fL (7.4-10.4); Monocytes # (auto) 0.49 K/uL (0.11-0.59); Monocytes % (auto) 7.2 %; Neutrophils # (auto) 5.36 K/uL (1.4-6.5); Neutrophils % (auto) 79.4 %; Platelet Count 222 K/uL (130-400); RDW Coefficient of Variation 12.1 % (11.5-14.5); RDW Standard Deviation 41.4 fL (36.4-46.3); White Blood Count 6.76 K/uL (4.8-10.8)
[2021-07-25 13:57] LABS: D Dimer 260 ug/L FEU (0-500)
[2021-07-25 14:04] LABS: Troponin I < 0.03 ng/ml (0-0.04)
[2021-07-25 14:07] LABS: Alanine Aminotransferase 31 U/L (7-52); Albumin Level 4.4 gm/dl (3.4-5.0); Alkaline Phosphatase 68 U/L (34-104); Anion Gap 10 (3-11); Aspartate Aminotransferase 27 U/L (13-39); BUN Creatinine Ratio 18.1 (10-20); Bilirubin Direct 0.1 mg/dl (0-0.2); Bilirubin,Total 0.6 mg/dl (0.2-1.0); Blood Urea Nitrogen 17 mg/dl (6-23); Calcium 9.5 mg/dl (8.5-10.1); Carbon Dioxide 24 mmol/L (21-32); Chloride 102 mmol/L (98-107); Creatinine Clr Calc Pharmacy 92.9 ml/min; Est GFR (African American) 99.6 ml/min; Est GFR (Non-African American) 85.9 ml/min; Glucose 164 mg/dl (70-99(Fasting)); Lipase 39 U/L (11-82); Magnesium 1.6 mg/dl (1.7-2.4); Potassium 3.8 mmol/L (3.5-5.1); Sodium 136 mmol/L (136-145); Total Protein 7.4 gm/dl (6.0-8.3)
[2021-07-25 14:09] LABS: Influenza A virus by PCR Negative (Negative); Influenza B virus by PCR Negative (Negative)
--- NOTE | 2021-07-25 14:24 | XRay Report ---
XR chest 1V portable HISTORY: Shortness of breath. COMPARISON: Chest 02/21/2018. FINDINGS: No pneumothorax. No pleural effusions. The cardiac silhouette remains mildly enlarged. No f ocal lung consolidations to suggest pneumonia. No evidence for pulmonary edema. Right-sided stimulato r device is noted with the leads extending into the neck. IMPRESSION: No acute process. ACT 112: Negative or not required by law. Electronically signed by: Blaise Valladares M.D. 07/25/2021 2:23 PM
[2021-07-25 14:25] LABS: Appearance Urine Clear (Clear); Bilirubin Urine Negative (Negative); Blood Urine Negative (Negative); Color Urine Yellow; Glucose Urine UA Negative (Negative); Ketones Urine Negative (Negative); Leukocyte Esterase Urine Negative (Negative); Nitrite Urine Negative (Negative); Protein Urine Negative (Negative); Specific Gravity Urine 1.015 (1.000-1.030); Urobilinogen Urine Negative (Negative); pH Urine >= 9.0 (4.5-7.5)
--- NOTE | 2021-07-25 15:14 | CT Scan Report ---
HEAD CT NONCONTRAST CT DOSE: 614.27 mGy.cm HISTORY: near-syncope, dizzy TECHNIQUE: Multiaxial CT images of the head were performed without the use of intravenous contrast. A utomated exposure control was utilized for this study. A dose lowering technique was utilized adheri ng to the principles of ALARA. Comparison: None. Findings: The paranasal sinuses and mastoid air cells are clear. The calvarium and skull base are int act. The ventricles and sulci are within normal limits. There is no mass, hematoma, midline shift, or acute infarct. Impression: No acute intracranial abnormality. ACT 112: Negative or not required by law. Electronically signed by: Blaise Valladares M.D. 07/25/2021 3:13 PM
[2021-07-25] MEDS ORDERED: MECLIZINE HCL 25 MG TAB PO STA (15:23)
[2021-07-25] MEDS ORDERED: MAGNESIUM SULFATE / D5W 1 GM/100 ML BAG IV ONE (16:58)
--- NOTE | 2021-07-25 17:00 | History & Physical Report ---
Date of Service July 25, 2021 Assessment & Plan (1) Dizziness: Plan: Presents with vague lightheadedness versus dizziness and mild headache and possibly some sensory deficit of the left upper extremity that started on the morning of 07/25 Symptoms are now improved after receiving meclizine and IV Ativan-but still has mild headache and mild dizziness, but left upper extremity sensory deficits are resolved Does have risk factors for CVA to include age and HTN He also does have heavy alcohol use history and was drinking alcohol excessively the night before symptoms started. He did receive 2 L of normal saline which would provide hydration He also had a recent likely viral upper respiratory infection and perhaps this is some sort of vestibular neuronitis Nonetheless, will admit for further work-up for CVA His recent implantation of hypoglossal nerve stimulator may make obtaining an MRI difficult-the poultry service technician was contacted and will research the device to see if it is compatible with MRI CT head noncontrast negative -Bring in on observation to medical floor with telemetry for arrhythmia monitoring -Check echocardiogram with bubble study -Continue aspirin 81 mg daily -Increase atorvastatin 40 mg daily and check lipid panel -Check hemoglobin A1c in the morning -Neurochecks and NIH stroke scale -Check MRI brain without contrast for stroke -Check CTA head and neck -PT/OT consults placed -Meclizine as needed for dizziness -Allow permissive hypertension for now -Check orthostatics (2) Substernal chest pain: Plan: Was somewhat vague as per patient and was associated with tingling all over his body while he was having the episode of dizziness as above He does have known significant esophageal dysmotility and chronic cough, perhaps it was some reflux Initial troponin negative, ECG normal Chest x-ray negative Not hypoxic and D-dimer negative -Checking echo as above Serial troponins Continue home PPI twice daily (3) Near syncope: Plan: Related to lightheadedness as above (4) Cervicalgia: Plan: Chronic Gets EVIN from pain management (5) Prediabetes: Plan: Last hemoglobin A1c 6.1% Checking hemoglobin A1c in the morning (6) Obstructive sleep apnea: Plan: He was intolerant to CPAP and is now with recent hypoglossal nerve stimulator (Inspire) implanted on 06/03/2021 and managed by ENT at [facility] He has a remote control to turn it on each night when he goes to sleep (7) Hypertension: Plan: Blood pressures elevated Permissive hypertension in setting of possible stroke Amlodipine can be given in the morning if BP not less than 140 (8) Hypercholesterolemia: Plan: Check lipid panel in the morning Continue atorvastatin but increase to high intensity of 40 mg daily (9) Gastroesophageal reflux disease: Plan: With esophageal dysmotility as above Continue PPI twice daily (10) Hypomagnesemia: Plan: Magnesium low at 1.6 Replace with 1 g IV magnesium sulfate Plan: DVT prophylaxis-Lovenox SQ, SCDs Disposition bring in on observation medical floor telemetry PT/OT consults Expect discharge home likely tomorrow if symptoms improving Full code, but would not want prolonged life support if with poor prognosis/vegetative state History of Present Illness Chief Complaint: Dizziness, chest pain Primary Care Provider: Josette Suazo MD This patient is a 61-year-old male with a history of severe INNA with recent Inspire implantation (hypoglossal nerve stimulator, placed on 06/03/2021), HTN, hyperlipidemia, GERD, esophageal dysmotility, and cervicalgia, who presents to the ER with acute onset this morning around 7 AM of dizziness and possible lightheadedness like he is going to pass out. He did not feel like the room was spinning. He felt tingly in bilateral upper and lower extremities and he felt like maybe his left upper extremity was not quite working right or like it was numb. There were times where he felt like he might pass out but this was not positional. The symptoms worsened around 10 AM and then he decided to call an ambulance as he had developed some chest discomfort and he was worried that he was having a heart attack. He did feel anxious. He has had a mild headache that is frontal, 3/10 in severity, and not associated with photophobia phonophobia like his typical migraines. He does report that he had a pretty bad head cold with sinus congestion and runny nose for which he was taking decongestants and antihistamines for 4 days, but this all resolved 3 days ago. He arrived at the hospital approximately 5 hours or so after the symptoms began. He had a recent trip to the [employer] yesterday and back with his grandchildren which is about a 2-1/2-[address] way. He does admit that he typically drinks 4 ounces of whiskey every night, but drink more than that last day although would not specify exactly how much. He initially thought this morning that he was hung over. In the ER, he had a normal CBC, D-dimer was negative at 260, normal CMP, negative troponin, magnesium a little bit low at 1.6, lipase normal, urinalysis negative for infection, and influenza A/B and Covid-19 were all negative. A chest x-ray was normal except for the right-sided stimulator device present with leads extending into the neck. A CT noncontrast of the head was negative as well. An ECG showed normal sinus rhythm with sinus arrhythmia, no ischemic changes. He was given IV Ativan for anxiety, 2 L of normal saline, 25 mg of oral meclizine, yet is still feeling some dizziness when I saw him. He will be admitted for work-up for stroke as well as chest pain to rule out acute coronary syndrome. Allergies Allergy/AdvReac Type Severity Reaction Status Date / Time Sulfa (Sulfonamide Allergy Intermediate SEVERE Verified 07/25/21 14:53 Antibiotics) HIVES/ITCHING buspirone [From BuSpar] Allergy Unknown "I didnt Verified 07/25/21 14:53 tolerate well" sildenafil [From Viagra] AdvReac Intermediate "sets off Verified 07/25/21 14:53 my acid reflux" gabapentin AdvReac Drowsiness Verified 07/25/21 14:53 Home Medications Medication Instructions Recorded Confirmed Type cholecalciferol (vitamin D3) 50 2,000 unit PO QAM 02/21/18 07/25/21 History mcg (2,000 unit) tablet glucosamine sulfate 500 mg tablet 2 tab PO HS 08/01/18 07/25/21 History (Glucosamine) amlodipine 10 mg tablet 10 mg PO QAM #90 tab 09/01/20 07/25/21 Rx lansoprazole 30 mg capsule,delayed 30 mg PO BID #180 cap 10/29/20 07/25/21 Rx release atorvastatin 20 mg tablet 20 mg PO HS #90 tab 06/11/21 07/25/21 Rx dextrin 3 gram/3.5 gram oral 3 g PO QAM 07/25/21 07/25/21 History powder (Fiber (dextrin)) Past Med/Surg History Medical History Anxiety Cervical spinal stenosis Cervicalgia Chronic cough COVID-19 COVID-19 virus infection Degenerative disc disease, cervical Degenerative disc disease, lumbar Gastroesophageal reflux disease (02/12/11) GERD (gastroesophageal reflux disease) Hearing deficit History of colon polyps HLD (hyperlipidemia) Hx of intestinal obstruction Hypertension Kidney stones Migraine Myofascial pain Osteoarthritis Sleep apnea no device Small bowel obstruction Surgical History H/O removal of cyst x2 off neck History of appendectomy History of colonoscopy History of esophagogastroduodenoscopy (EGD) History of left inguinal hernia repair History of lumbar discectomy History of removal of cyst off finger x2 History of wisdom tooth extraction Hx of vasectomy Status post correction of deviated nasal septum Status post insertion of nerve stimulator Inspire device for INNA, hypoglossal nerve stimulator Status post right foot surgery Family History Brother Family hx of colon cancer Sister Colorectal cancer Father Myocardial infarction Aortic aneurysm Grandfather (Maternal) Myocardial infarction Other Heart disease No family history of adverse response to anesthesia Denies family history of Ovarian cancer Prostate cancer Breast cancer Social History (Updated 07/25/21 @ 18:13 by Tori Michael MD) Smoking Status: Former smoker Tobacco Type: Cigarettes Second Hand Exposure: No; Hx Alcohol Use: Yes Alcohol type: hard liquor Alcohol Intake Frequency: 4 or More x per/Week Alcohol Intake Frequency Comment: 4 oz or more of whiskey each night Hx Substance Use: No Preferred Language: Mongolian Communication Ability: Effective Cable Ferryboat Operator Required: No Beliefs That Will Affect Care: None Current Living Situation: Significant Other current occupational status: employed Feels Safe at Home: Yes Assistive Devices: Contacts and Glasses Review of Systems Review of Systems: All systems reviewed & are unremarkable except as noted in HPI & below Physical Exam Constitutional: WD/WN, vitals as above Eyes: PERRL, conjunctivae normal, anicteric sclerae EOM intact bilaterally; no anisocoria and no nystagmus ENMT: external ear and nose normal, oropharynx normal Ears: no hearing impairment, no EAC abnormality and no TM abnormality Neck: trachea midline, no thyromegaly + abnormal visual inspection (Incisional scar right anterior neck well-healed) Respiratory: normal respiratory effort, lungs clear to auscultation Cardiovascular: RRR, no murmur, no edema Chest (Breasts): Chest: normal inspection of chest Gastrointestinal (Abdomen): normal bowel sounds, soft, nontender, no hepatosplenomegaly Musculoskeletal: Extremities: extremities normal to inspection; no cyanosis and no clubbing Skin: no rashes, warm and dry Neurologic: PERRL, EOMI, accommodation nl, no face palsy, no dysarthria CN's II-XI intact bilaterally, deep tendon reflexes 2+ bilaterally, moves all extremities and awake; no focal motor deficits and not confused Motor/Sensory: no tremor, no pronator drift and no sensory deficit Coordination: normal [id number] test and normal rapid alternating movements Psychiatric: A+Ox3, euthymic affect Lymphatic: no lymphedema Results & Data Results & Data ([facility]) Vital Signs (Past 12 Hours) Vital Signs Temp Pulse Pulse Resp BP BP Pulse Ox 07/25/21 16:39 91 H 18 175/95 H 97 07/25/21 14:57 80 18 155/93 H 95 07/25/21 13:21 36.8 C 75 20 174/97 H 99 07/25/21 12:57 98 Laboratory Results 07/25/21 07/25/21 07/25/21 Range/Units 14:10 13:29 13:29 WBC (4.8-10.8) K/uL RBC (4.7-6.1) M/uL Hgb (14.0-18.0) g/dL Hct (42-52) % MCV (80-100) fL MCH (25-34) pg MCHC (32-36) g/dL RDW Std Deviation (36.4-46.3) fL RDW Coeff of Lexi (11.5-14.5) % Plt Count (130-400) K/uL MPV (7.4-10.4) fL Immature Gran % (Auto) % Neut % (Auto) % Lymph % (Auto) % [place] % (Auto) % Eos % (Auto) % Baso % (Auto) % Neut # (Auto) (1.4-6.5) K/uL Lymph # (Auto) (1.2-3.4) K/uL [place] # (Auto) (0.11-0.59) K/uL Eos # (Auto) (0-0.5) K/uL Baso # (Auto) (0-0.2) K/uL Immature Gran # (Auto) (0.00-0.02) K/uL D-Dimer (0-500) ug/L FEU Sodium (136-145) mmol/L Potassium (3.5-5.1) mmol/L Chloride (98-107) mmol/L Carbon Dioxide (21-32) mmol/L Anion Gap (3-11) BUN (6-23) mg/dl Creatinine (0.6-1.4) mg/dl Est Cr Clr Drug Dosing ml/min Est GFR ( Amer) ml/min Est GFR (Non-Af Amer) ml/min BUN/Creatinine Ratio (10-20) Glucose (70-99(Fasting)) mg/dl Calcium (8.5-10.1) mg/dl Magnesium (1.7-2.4) mg/dl Total Bilirubin (0.2-1.0) mg/dl Direct Bilirubin (0-0.2) mg/dl AST (13-39) U/L ALT (7-52) U/L Alkaline Phosphatase (34-104) U/L Troponin I (0-0.04) ng/ml Total Protein (6.0-8.3) gm/dl Albumin (3.4-5.0) gm/dl Lipase (11-82) U/L Urine Color Yellow Urine Appearance Clear (Clear) Urine pH >= 9.0 H (4.5-7.5) Ur Specific [place] 1.015 (1.000-1.030) Urine Protein Negative (Negative) Urine Glucose (UA) Negative (Negative) Urine Ketones Negative (Negative) Urine Blood Negative (Negative) Urine Nitrite Negative (Negative) Urine Bilirubin Negative (Negative) Urine Urobilinogen Negative (Negative) Ur Leukocyte Esterase Negative (Negative) Influ A Molecular Assay Negative (Negative) Influ B Molecular Assay Negative (Negative) SARS-CoV-2, RNA, NAAT NEGATIVE (NEGATIVE) 07/25/21 07/25/21 07/25/21 Range/Units 13:25 13:25 13:25 WBC 6.76 (4.8-10.8) K/uL RBC 4.40 L (4.7-6.1) M/uL Hgb 14.5 (14.0-18.0) g/dL Hct 41.4 L (42-52) % MCV 94.1 (80-100) fL MCH 33.0 (25-34) pg MCHC 35.0 (32-36) g/dL RDW Std Deviation 41.4 (36.4-46.3) fL RDW Coeff of Lexi 12.1 (11.5-14.5) % Plt Count 222 (130-400) K/uL MPV 9.5 (7.4-10.4) fL Immature Gran % (Auto) 0.3 % Neut % (Auto) 79.4 % Lymph % (Auto) 12.7 % [place] % (Auto) 7.2 % Eos % (Auto) 0.3 % Baso % (Auto) 0.1 % Neut # (Auto) 5.36 (1.4-6.5) K/uL Lymph # (Auto) 0.86 L (1.2-3.4) K/uL [place] # (Auto) 0.49 (0.11-0.59) K/uL Eos # (Auto) 0.02 (0-0.5) K/uL Baso # (Auto) 0.01 (0-0.2) K/uL Immature Gran # (Auto) 0.02 (0.00-0.02) K/uL D-Dimer 260 (0-500) ug/L FEU Sodium 136 (136-145) mmol/L Potassium 3.8 (3.5-5.1) mmol/L Chloride 102 (98-107) mmol/L Carbon Dioxide 24 (21-32) mmol/L Anion Gap 10 (3-11) BUN 17 (6-23) mg/dl Creatinine 0.94 (0.6-1.4) mg/dl Est Cr Clr Drug Dosing 92.9 ml/min Est GFR ( Amer) 99.6 ml/min Est GFR (Non-Af Amer) 85.9 ml/min BUN/Creatinine Ratio 18.1 (10-20) Glucose 164 H (70-99(Fasting)) mg/dl Calcium 9.5 (8.5-10.1) mg/dl Magnesium 1.6 L (1.7-2.4) mg/dl Total Bilirubin 0.6 (0.2-1.0) mg/dl Direct Bilirubin 0.1 (0-0.2) mg/dl AST 27 (13-39) U/L ALT 31 (7-52) U/L Alkaline Phosphatase 68 (34-104) U/L Troponin I < 0.03 (0-0.04) ng/ml Total Protein 7.4 (6.0-8.3) gm/dl Albumin 4.4 (3.4-5.0) gm/dl Lipase 39 (11-82) U/L Urine Color Urine Appearance (Clear) Urine pH (4.5-7.5) Ur Specific [place] (1.000-1.030) Urine Protein (Negative) Urine Glucose (UA) (Negative) Urine Ketones (Negative) Urine Blood (Negative) Urine Nitrite (Negative) Urine Bilirubin (Negative) Urine Urobilinogen (Negative) Ur Leukocyte Esterase (Negative) Influ A Molecular Assay (Negative) Influ B Molecular Assay (Negative) SARS-CoV-2, RNA, NAAT (NEGATIVE) Diagnostic Findings Chest X-Ray 07/25/21 13:25 XR chest 1V portable HISTORY: Shortness of breath. COMPARISON: Chest 02/21/2018. FINDINGS: No pneumothorax. No pleural effusions. The cardiac silhouette remains mildly enlarged. No focal lung consolidations to suggest pneumonia. No evidence for pulmonary edema. Right-sided stimulator device is noted with the leads extending into the neck. IMPRESSION: No acute process. ACT 112: Negative or not required by law. Electronically signed by: Blaise Valladares M.D. 07/25/2021 2:[address] 07/25/21 14:[address] DOSE: 614.27 mGy.cm HISTORY: near-syncope, dizzy TECHNIQUE: Multiaxial CT images of the head were performed without the use of intravenous contrast. Automated exposure control was utilized for this study. A dose lowering technique was utilized adhering to the principles of ALARA. Comparison: None. Findings: The paranasal sinuses and mastoid air cells are clear. The calvarium and skull base are intact. The ventricles and sulci are within normal limits. There is no mass, hematoma, midline shift, or acute infarct. Impression: No acute intracranial abnormality. ACT 112: Negative or not required by law. Electronically signed by: Blaise Valladares M.D. 07/25/2021 3:13 PM ECG Additional Comments: Normal sinus rhythm with sinus arrhythmia, no ischemic changes Code Status & VTE Plan Code Status Full code VTE Prophylaxis Plan VTE Prophylaxis will be ordered: Yes PG Care Time/CCT Total # of Minutes Spent Total Time Spent with Patient: Total time spent is greater than 50% in coordination of care (as documented) at patient's floor/unit and/or counseling patient: Coding Level of Care Code INT OBSERVATION CARE 70M LVL 3 Diagnoses Substernal chest pain R07.2 Near syncope R55 Cervicalgia M54.2 Prediabetes R73.03 Obstructive sleep apnea G47.33 Hypertension I10 Hypercholesterolemia E78.00 Gastroesophageal reflux disease K21.9 Dizziness R42 Hypomagnesemia E83.42
[2021-07-25] MEDS ORDERED: ACETAMINOPHEN 325 MG TAB PO PRN (20:23)
[2021-07-25] MEDS ORDERED: MECLIZINE HCL 25 MG TAB PO PRN (20:23)
[2021-07-25] MEDS ORDERED: LORazepam 0.5 MG TAB PO PRN (20:23)
[2021-07-25] MEDS ORDERED: ONDANSETRON INJ 2 MG/ML 2 ML VIAL IV PRN (20:23)
[2021-07-25] MEDS ORDERED: POLYETHYLENE (MIRALAX) 17 GM PACK PO PRN (20:23)
[2021-07-25] MEDS ORDERED: PHARMACIST DISCHARGE MED REC CONSULT PRN (20:23)
[2021-07-25] MEDS ORDERED: OPTIRAY 320 125ml IV ONE (21:43)
[2021-07-25] MEDS: ATORVASTATIN 40 MG TAB PO SCH (21:54)
[2021-07-25] MEDS: PANTOprazole 40 MG TAB PO SCH (21:58)
[2021-07-26 06:43] LABS: Basophils # (auto) 0.01 K/uL (0-0.2); Basophils % (auto) 0.2 %; Eosinophils # (auto) 0.04 K/uL (0-0.5); Eosinophils % (auto) 0.7 %; Hematocrit (blood only) 42.7 % (42-52); Hemoglobin 14.3 g/dL (14.0-18.0); Immature Granulocytes # (auto) 0.02 K/uL (0.00-0.02); Immature Granulocytes % (auto) 0.3 %; Lymphocytes # (auto) 1.73 K/uL (1.2-3.4); Mean Corpuscular Hemoglobin 32.1 pg (25-34); Mean Corpuscular Hgb Conc 33.5 g/dL (32-36); Mean Corpuscular Volume 95.7 fL (80-100); Mean Platelet Volume 9.5 fL (7.4-10.4); Monocytes # (auto) 0.53 K/uL (0.11-0.59); Monocytes % (auto) 8.9 %; Neutrophils # (auto) 3.63 K/uL (1.4-6.5); Neutrophils % (auto) 60.9 %; Platelet Count 238 K/uL (130-400); RDW Coefficient of Variation 12.3 % (11.5-14.5); RDW Standard Deviation 42.6 fL (36.4-46.3); Red Blood Count 4.46 M/uL (4.7-6.1); White Blood Count 5.96 K/uL (4.8-10.8)
[2021-07-26 07:14] LABS: Troponin I < 0.03 ng/ml (0-0.04)
[2021-07-26 07:17] LABS: Anion Gap 7 (3-11); BUN Creatinine Ratio 13.8 (10-20); Blood Urea Nitrogen 13 mg/dl (6-23); Calcium 8.9 mg/dl (8.5-10.1); Carbon Dioxide 29 mmol/L (21-32); Chloride 101 mmol/L (98-107); Chol HDL Ratio 3.8 (0-5); Cholesterol 194 mg/dl (0-200); Creatinine Clr Calc Pharmacy 92.9 ml/min; Est GFR (African American) 99.6 ml/min; Est GFR (Non-African American) 85.9 ml/min; Glucose 112 mg/dl (70-99(Fasting)); HDL Cholesterol 51 mg/dl; LDL Cholesterol Calculated 78 mg/dl; Potassium 3.7 mmol/L (3.5-5.1); Sodium 137 mmol/L (136-145); Triglycerides 323 mg/dl (0-150); VLDL Cholesterol 65 mg/dl (0-30)
[2021-07-26] MEDS: PANTOprazole 40 MG TAB PO SCH ×2 (08:10→19:49)
[2021-07-26] MEDS: CHOLECALCIFEROL 1,000 UNITS 25 MCG TAB PO SCH (08:10)
[2021-07-26] MEDS: ENOXAPARIN INJ 40 MG/0.4 ML SYR SQ SCH (08:10)
[2021-07-26] MEDS: ASPIRIN 81 MG ECTAB PO SCH (08:11)
[2021-07-26] MEDS: amLODIPine BESYLATE 5 MG TAB PO SCH (08:11)
--- NOTE | 2021-07-26 08:25 | CT Scan Report ---
CT angio neck with con, CT angio head w con CLINICAL HISTORY: 61 years-old Male with dizziness, CVA workup. Acute dizziness with strokelike sy mptoms COMPARISON STUDY: Head CT of same day TECHNIQUE: Following the IV administration of 117 mL of Optiray, CT angiogram of the head and neck wa s performed from the aortic arch to the skull apex. Images are reviewed in the axial, sagittal, and c oronal planes. 3-D MIPS images are created and assessed. IV contrast was administered without complic ation. All measurements were calculated based on NASCET criteria. A dose lowering technique was util ized adhering to the principles of ALARA. CT DOSE: 594.80 mGy.cm FINDINGS: Artifact is noted from the patient's earrings and right pectoral battery pack. Three-vessel morpholog y of the thoracic aortic arch. There is patency of the innominate and imaged subclavian arteries. The re is mild atherosclerotic plaque of the carotid bulbs results in less than 50% stenosis bilaterally. The study is motion degraded. The internal carotid, middle and anterior cerebral arteries are patent bilaterally. Codominant and patent vertebral arteries. The basilar artery is also patent. orig in of the right posterior cerebral artery. No aneurysm, dissection, high-grade stenosis or arterial o cclusion. The cerebral venous sinuses are patent. There is no abnormal intracranial enhancement. Righ t pectoral battery pack is noted with a stimulator lead terminating within the right submandibular ti ssues. Mild adjacent subcutaneous edema may be on a postprocedural basis. Mildly prominent subcentime ter paratracheal lymph nodes. Lung apices are clear. Mild mucosal thickening of the left maxillary si nus. Degenerative changes of the cervical spine. IMPRESSION:Unremarkable CTA of the head and neck. No aneurysm, dissection, high-grade stenosis or art erial occlusion. ACT 112: Negative or not required by law. The above report was generated using voice recognition software. It may contain grammatical, syntax o r spelling errors. Electronically signed by: Stoney Albright M.D. 07/26/2021 8:24 AM
[2021-07-26] MEDS ORDERED: amLODIPine BESYLATE 5 MG TAB PO SCH ×2 (09:00)
--- NOTE | 2021-07-26 09:23 | Electrocardiogram Report ---
Test Reason : Blood Pressure : / mmHG Vent. Rate : 075 BPM Atrial Rate : 075 BPM P-R Int : 174 ms QRS Dur : 092 ms QT Int : 420 ms P-R-T Axes : 049 021 049 degrees QTc Int : 469 ms Normal sinus rhythm Normal ECG When compared with ECG of 21-FEB-2018 09:53, No significant change was found Confirmed by Juan Antonio Richardson ([id number]) on 07/26/2021 9:23:25 AM Referred By: REFERRED SELF Confirmed By:Juan Antonio Richardson
--- NOTE | 2021-07-26 11:15 | XCELERA ---
[id number]
[2021-07-26] MEDS: CALCIUM POLYCARBOPHIL 625MG TAB PO SCH (14:39)
--- NOTE | 2021-07-26 17:51 | Hospitalist Progress Note ---
Date of Service July 26, 2021 Assessment & Plan (1) Dizziness: Plan: Presents with vague lightheadedness versus dizziness and mild headache and possibly some sensory deficit of the left upper extremity that started on the morning of 07/25 Symptoms are now almost completely resolved after receiving meclizine and IV Ativan-but still has mild headache and mild dizziness, but left upper extremity sensory deficits are resolved Does have risk factors for CVA to include age and HTN He also does have heavy alcohol use history and was drinking alcohol excessively the night before symptoms started. He did receive 2 L of normal saline which would provide hydration He also had a recent likely viral upper respiratory infection and perhaps this is some sort of vestibular neuronitis Nonetheless, he was admitted for further work-up for CVA CT head noncontrast negative CT angiogram head and neck with less than 50% stenosis of bilateral ICAs, otherwise normal Echocardiogram with bubble study negative Sinus rhythm on telemetry thus far Symptoms are significantly improved and he was able to ambulate without difficulty with PT, but does not feel he wants to go home without getting the MRI to completely rule out stroke Orthostatics are negative His recent implantation of hypoglossal nerve stimulator is making obtaining an MRI difficult-the photogrammetric technician attempted to call the company today and was not able to get through likely due to it being a Tuesday-we will try again tomorrow -Awaiting MRI brain as above on Tuesday hopefully -Continue aspirin 81 mg daily -Increased atorvastatin 40 mg daily-lipid panel with elevated triglycerides, but otherwise acceptable -Check hemoglobin [id number] -Continue neurochecks and NIH stroke scale -Strongly recommended significant reduction in amount of alcohol use daily -Meclizine as needed for dizziness -Allow permissive hypertension for now (2) Substernal chest pain: Plan: Was somewhat vague as per patient and was associated with tingling all over his body while he was having the episode of dizziness as above He does have known significant esophageal dysmotility and chronic cough, perhaps it was some reflux Serial troponins negative x3, ECG normal, echocardiogram without ischemic wall motion normalities and with preserved EF Chest x-ray negative Not hypoxic and D-dimer negative Continue home PPI twice daily Encouraged significant reduction in amount of alcohol use daily (3) Near syncope: Plan: Related to lightheadedness as above Now resolved Orthostatics negative (4) Cervicalgia: Plan: Chronic Gets EVIN from pain management (5) Prediabetes: Plan: Last hemoglobin A1c 6.1% Checking hemoglobin A1c -pending (6) Obstructive sleep apnea: Plan: He was intolerant to CPAP and is now with recent hypoglossal nerve stimulator (Inspire) implanted on 06/03/2021 and managed by ENT at [place] He has a remote control to turn it on each night when he goes to sleep (7) Hypertension: Plan: Blood pressures elevated Permissive hypertension in setting of possible stroke Amlodipine can be given in the morning if BP not less than 140 (8) Hypercholesterolemia: Plan: Lipid panel with elevated triglycerides as above, LDL and HDL controlled Encouraged to cut down on alcohol use Continue atorvastatin but increase to high intensity of 40 mg daily (9) Gastroesophageal reflux disease: Plan: With esophageal dysmotility as above Continue PPI twice daily (10) Hypomagnesemia: Plan: Magnesium low at 1.6 on arrival Replaced and normal today Plan: DVT prophylaxis-Lovenox SQ, SCDs Disposition-continued stay, awaiting brain MRI, likely discharge tomorrow if MRI negative PT/OT consults recommend home with out services Full code, but would not want prolonged life support if with poor prognosis/vegetative state Admission and Anticipated Discharge Date Admission Date: July 25, 2021 Subjective Patient feeling better today, no further chest pain. Lightheadedness/dizziness is pretty much gone except for some mild residual. Still very mild residual frontal headache. He was able to ambulate up and down the hallways without difficulty. Unable to get MRI performed today as the company for his inspire device was not able to be reached by the photogrammetric technician to ensure compatibility with MRI. Patient would like to stay and have this performed tomorrow. Telemetry normal sinus rhythm with normal rates Review of Systems Review of Systems: All systems reviewed & are unremarkable except as noted in HPI & below Physical Exam Constitutional: WD/WN, vitals as above Eyes: PERRL, conjunctivae normal, anicteric sclerae EOM intact bilaterally; no anisocoria and no nystagmus ENMT: external ear and nose normal, oropharynx normal Ears: no hearing impairment Neck: trachea midline, no thyromegaly + abnormal visual inspection (Incisional scar right anterior neck well-healed) Respiratory: normal respiratory effort, lungs clear to auscultation Cardiovascular: RRR, no murmur, no edema Chest (Breasts): Chest: normal inspection of chest Gastrointestinal (Abdomen): normal bowel sounds, soft, nontender, no hepatosplenomegaly Musculoskeletal: Extremities: extremities normal to inspection; no cyanosis and no clubbing Skin: no rashes, warm and dry Neurologic: PERRL, EOMI, accommodation nl, no face palsy, no dysarthria CN's II-XI intact bilaterally, deep tendon reflexes 2+ bilaterally, moves all extremities and awake; no focal motor deficits and not confused Psychiatric: A+Ox3, euthymic affect Lymphatic: no lymphedema Results & Data Results & Data ([facility]) Vital Signs (Past 12 Hours) Vital Signs Temp Pulse Pulse Resp BP Pulse Ox 07/26/21 17:36 64 07/26/21 15:27 36.8 C 71 18 155/83 H 95 07/26/21 11:58 37.1 C 84 18 142/71 H 95 07/26/21 07:35 36.6 C 68 18 151/84 H 91 07/26/21 07:19 80 Laboratory Results 07/26/21 07/26/21 07/26/21 Range/Units 06:21 06:21 06:21 WBC 5.96 (4.8-10.8) K/uL RBC 4.46 L (4.7-6.1) M/uL Hgb 14.3 (14.0-18.0) g/dL Hct 42.7 (42-52) % MCV 95.7 (80-100) fL MCH 32.1 (25-34) pg MCHC 33.5 (32-36) g/dL RDW Std Deviation 42.6 (36.4-46.3) fL RDW Coeff of Lexi 12.3 (11.5-14.5) % Plt Count 238 (130-400) K/uL MPV 9.5 (7.4-10.4) fL Immature Gran % (Auto) 0.3 % Neut % (Auto) 60.9 % Lymph % (Auto) 29.0 % [place] % (Auto) 8.9 % Eos % (Auto) 0.7 % Baso % (Auto) 0.2 % Neut # (Auto) 3.63 (1.4-6.5) K/uL Lymph # (Auto) 1.73 (1.2-3.4) K/uL [place] # (Auto) 0.53 (0.11-0.59) K/uL Eos # (Auto) 0.04 (0-0.5) K/uL Baso # (Auto) 0.01 (0-0.2) K/uL Immature Gran # (Auto) 0.02 (0.00-0.02) K/uL Sodium 137 (136-145) mmol/L Potassium 3.7 (3.5-5.1) mmol/L Chloride 101 (98-107) mmol/L Carbon Dioxide 29 (21-32) mmol/L Anion Gap 7 (3-11) BUN 13 (6-23) mg/dl Creatinine 0.94 (0.6-1.4) mg/dl Est Cr Clr Drug Dosing 92.9 ml/min Est GFR ( Amer) 99.6 ml/min Est GFR (Non-Af Amer) 85.9 ml/min BUN/Creatinine Ratio 13.8 (10-20) Glucose 112 H (70-99(Fasting)) mg/dl Estimat Average Glucose Pending Hemoglobin A1c Pending Calcium 8.9 (8.5-10.1) mg/dl Magnesium 2.0 (1.7-2.4) mg/dl Troponin I < 0.03 (0-0.04) ng/ml Triglycerides 323 H (0-150) mg/dl Cholesterol 194 (0-200) mg/dl LDL Cholesterol, Calc 78 mg/dl VLDL Cholesterol, Calc 65 H (0-30) mg/dl HDL Cholesterol 51 mg/dl Cholesterol/HDL Ratio 3.8 (0-5) 07/25/21 Range/Units 19:12 WBC (4.8-10.8) K/uL RBC (4.7-6.1) M/uL Hgb (14.0-18.0) g/dL Hct (42-52) % MCV (80-100) fL MCH (25-34) pg MCHC (32-36) g/dL RDW Std Deviation (36.4-46.3) fL RDW Coeff of Lexi (11.5-14.5) % Plt Count (130-400) K/uL MPV (7.4-10.4) fL Immature Gran % (Auto) % Neut % (Auto) % Lymph % (Auto) % [place] % (Auto) % Eos % (Auto) % Baso % (Auto) % Neut # (Auto) (1.4-6.5) K/uL Lymph # (Auto) (1.2-3.4) K/uL [place] # (Auto) (0.11-0.59) K/uL Eos # (Auto) (0-0.5) K/uL Baso # (Auto) (0-0.2) K/uL Immature Gran # (Auto) (0.00-0.02) K/uL Sodium (136-145) mmol/L Potassium (3.5-5.1) mmol/L Chloride (98-107) mmol/L Carbon Dioxide (21-32) mmol/L Anion Gap (3-11) BUN (6-23) mg/dl Creatinine (0.6-1.4) mg/dl Est Cr Clr Drug Dosing ml/min Est GFR ( Amer) ml/min Est GFR (Non-Af Amer) ml/min BUN/Creatinine Ratio (10-20) Glucose (70-99(Fasting)) mg/dl Estimat Average Glucose Hemoglobin A1c Calcium (8.5-10.1) mg/dl Magnesium (1.7-2.4) mg/dl Troponin I < 0.03 (0-0.04) ng/ml Triglycerides (0-150) mg/dl Cholesterol (0-200) mg/dl LDL Cholesterol, Calc mg/dl VLDL Cholesterol, Calc (0-30) mg/dl HDL Cholesterol mg/dl Cholesterol/HDL Ratio (0-5) Diagnostic Findings Head CTA 07/25/21 20:23 CT angio neck with con, CT angio head w con CLINICAL HISTORY: 61 years-old Male with dizziness, CVA workup. Acute dizziness with strokelike symptoms COMPARISON STUDY: Head CT of same day TECHNIQUE: Following the IV administration of 117 mL of Optiray, CT angiogram of the head and neck was performed from the aortic arch to the skull apex. Images are reviewed in the axial, sagittal, and coronal planes. 3-D MIPS images are created and assessed. IV contrast was administered without complication. All measurements were calculated based on NASCET criteria. A dose lowering technique was utilized adhering to the principles of ALARA. CT DOSE: 594.80 mGy.cm FINDINGS: Artifact is noted from the patient's earrings and right pectoral battery pack. Three-vessel morphology of the thoracic aortic arch. There is patency of the innominate and imaged subclavian arteries. There is mild atherosclerotic plaque of the carotid bulbs results in less than 50% stenosis bilaterally. The study is motion degraded. The internal carotid, middle and anterior cerebral arteries are patent bilaterally. Codominant and patent vertebral arteries. The basilar artery is also patent. origin of the right posterior cerebral artery. No aneurysm, dissection, high-grade stenosis or arterial occlusion. The cerebral venous sinuses are patent. There is no abnormal intracranial enhancement. Right pectoral battery pack is noted with a stimulator lead terminating within the right submandibular tissues. Mild adjacent subcutaneous edema may be on a postprocedural basis. Mildly prominent subcentimeter paratracheal lymph nodes. Lung apices are clear. Mild mucosal thickening of the left maxillary sinus. Degenerative changes of the cervical spine. IMPRESSION:Unremarkable CTA of the head and neck. No aneurysm, dissection, high- grade stenosis or arterial occlusion. ACT 112: Negative or not required by law. The above report was generated using voice recognition software. It may contain grammatical, syntax or spelling errors. Electronically signed by: Stoney Albright M.D. 07/26/2021 8:24 AM Neck CTA 07/25/21 20:23 CT angio neck with con, CT angio head w con CLINICAL HISTORY: 61 years-old Male with dizziness, CVA workup. Acute dizziness with strokelike symptoms COMPARISON STUDY: Head CT of same day TECHNIQUE: Following the IV administration of 117 mL of Optiray, CT angiogram of the head and neck was performed from the aortic arch to the skull apex. Images are reviewed in the axial, sagittal, and coronal planes. 3-D MIPS images are created and assessed. IV contrast was administered without complication. All me asurements were calculated based on NASCET criteria. A dose lowering technique was utilized adhering to the principles of ALARA. CT DOSE: 594.80 mGy.cm FINDINGS: Artifact is noted from the patient's earrings and right pectoral battery pack. Three-vessel morphology of the thoracic aortic arch. There is patency of the innominate and imaged subclavian arteries. There is mild atherosclerotic plaque of the carotid bulbs results in less than 50% stenosis bilaterally. The study is motion degraded. The internal carotid, middle and anterior cerebral arteries are patent bilaterally. Codominant and patent vertebral arteries. The basilar artery is also patent. origin of the right posterior cerebral artery. No aneurysm, dissection, high-grade stenosis or arterial occlusion. The cerebral venous sinuses are patent. There is no abnormal intracranial enhancement. Right pectoral battery pack is noted with a stimulator lead terminating within the right submandibular tissues. Mild adjacent subcutaneous edema may be on a postprocedural basis. Mildly prominent subcentimeter paratracheal lymph nodes. Lung apices are clear. Mild mucosal thickening of the left maxillary sinus. Degenerative changes of the cervical spine. IMPRESSION:Unremarkable CTA of the head and neck. No aneurysm, dissection, high- grade stenosis or arterial occlusion. ACT 112: Negative or not required by law. The above report was generated using voice recognition software. It may contain grammatical, syntax or spelling errors. Electronically signed by: Stoney Albright M.D. 07/26/2021 8:24 AM Echocardiogram-mild AI, preserved EF, otherwise normal PG Care Time/CCT Total # of Minutes Spent Total Time Spent with Patient: Total time spent is greater than 50% in coordination of care (as documented) at patient's floor/unit and/or counseling patient: Coding Level of Care Code 19933 Subseq Obs Care Lvl 2 Diagnoses Dizziness R42 Substernal chest pain R07.2 Near syncope R55 Cervicalgia M54.2 Prediabetes R73.03 Obstructive sleep apnea G47.33 Hypertension I10 Hypercholesterolemia E78.00 Gastroesophageal reflux disease K21.9 Hypomagnesemia E83.42
[2021-07-26] MEDS: ATORVASTATIN 40 MG TAB PO SCH (19:48)
[2021-07-27 07:41] LABS: Basophils # (auto) 0.01 K/uL (0-0.2); Basophils % (auto) 0.2 %; Eosinophils # (auto) 0.14 K/uL (0-0.5); Eosinophils % (auto) 2.9 %; Hemoglobin 15.1 g/dL (14.0-18.0); Immature Granulocytes # (auto) 0.01 K/uL (0.00-0.02); Immature Granulocytes % (auto) 0.2 %; Lymphocytes # (auto) 1.46 K/uL (1.2-3.4); Lymphocytes % (auto) 30.3 %; Mean Corpuscular Hemoglobin 32.6 pg (25-34); Mean Corpuscular Hgb Conc 35.1 g/dL (32-36); Mean Corpuscular Volume 92.9 fL (80-100); Mean Platelet Volume 9.7 fL (7.4-10.4); Monocytes # (auto) 0.47 K/uL (0.11-0.59); Monocytes % (auto) 9.8 %; Neutrophils # (auto) 2.73 K/uL (1.4-6.5); Neutrophils % (auto) 56.6 %; Platelet Count 257 K/uL (130-400); RDW Coefficient of Variation 12.2 % (11.5-14.5); RDW Standard Deviation 41.1 fL (36.4-46.3); Red Blood Count 4.63 M/uL (4.7-6.1); White Blood Count 4.82 K/uL (4.8-10.8)
[2021-07-27 08:14] LABS: BUN Creatinine Ratio 17.6 (10-20); Calcium 9.1 mg/dl (8.5-10.1); Creatinine Clr Calc Pharmacy 94.3 ml/min; Est GFR (African American) 103.6 ml/min; Est GFR (Non-African American) 89.4 ml/min; Potassium 3.8 mmol/L (3.5-5.1)
[2021-07-27 08:59] LABS: Estimated Average Glucose 128 mg/dl; Hemoglobin A1C 6.1 % (4.5-5.6)
[2021-07-27] MEDS: CALCIUM POLYCARBOPHIL 625MG TAB PO SCH (09:11)
[2021-07-27] MEDS: amLODIPine BESYLATE 5 MG TAB PO SCH (09:11)
[2021-07-27] MEDS: ASPIRIN 81 MG ECTAB PO SCH (09:11)
[2021-07-27] MEDS: ENOXAPARIN INJ 40 MG/0.4 ML SYR SQ SCH (09:12)
[2021-07-27] MEDS: PANTOprazole 40 MG TAB PO SCH (09:12)
[2021-07-27] MEDS: CHOLECALCIFEROL 1,000 UNITS 25 MCG TAB PO SCH (09:13)
--- NOTE | 2021-07-27 13:56 | Magnetic Resonance Report ---
Brain MRI WITHOUT CONTRAST HISTORY: r/o CVA, dizziness,headache TECHNIQUE: Multiplanar multisequence MRI of the brain was performed without the use of contrast. COMPARISON STUDY: Head and neck CTA 07/25/2021. FINDINGS: There are no areas of restricted diffusion to suggest acute infarction. The midline structu res are intact. Mild mucosal thickening within the left maxillary sinus. The mastoid air cells are cl ear. The ventricles and sulci are within normal limits for age. There is no mass, hematoma, midline s hift. The major vascular flow-voids at the skull base are well maintained. IMPRESSION: No acute intracranial abnormality. ACT 112: Negative or not required by law. Electronically signed by: Blaise Valladares M.D. 07/27/2021 1:55 PM
[2021-07-27] MEDS ORDERED: STROKE PATIENT DISCHARGE STA (15:42)
--- NOTE | 2021-07-27 15:49 | Discharge Summary ---
Date of Service July 27, 2021 Admission HPI Per Admitting Provider This patient is a 61-year-old male with a history of severe INNA with recent Inspire implantation (hypoglossal nerve stimulator, placed on 06/03/2021), HTN, hyperlipidemia, GERD, esophageal dysmotility, and cervicalgia, who presents to the ER with acute onset this morning around 7 AM of dizziness and possible lightheadedness like he is going to pass out. He did not feel like the room was spinning. He felt tingly in bilateral upper and lower extremities and he felt like maybe his left upper extremity was not quite working right or like it was numb. There were times where he felt like he might pass out but this was not positional. The symptoms worsened around 10 AM and then he decided to call an ambulance as he had developed some chest discomfort and he was worried that he was having a heart attack. He did feel anxious. He has had a mild headache that is frontal, 3/10 in severity, and not associated with photophobia phonophobia like his typical migraines. He does report that he had a pretty bad head cold with sinus congestion and runny nose for which he was taking decongestants and antihistamines for 4 days, but this all resolved 3 days ago. He arrived at the hospital approximately 5 hours or so after the symptoms began. He had a recent trip to the [place] yesterday and back with his grandchildren which is about a 2-1/2-[address] way. He does admit that he typically drinks 4 ounces of whiskey every night, but drink more than that last day although would not specify exactly how much. He initially thought this morning that he was hung over. In the ER, he had a normal CBC, D-dimer was negative at 260, normal CMP, negative troponin, magnesium a little bit low at 1.6, lipase normal, urinalysis negative for infection, and influenza A/B and Covid-19 were all negative. A est x-ray was normal except for the right-sided stimulator device present with leads extending into the neck. A CT noncontrast of the head was negative as well. An ECG showed normal sinus rhythm with sinus arrhythmia, no ischemic changes. He was given IV Ativan for anxiety, 2 L of normal saline, 25 mg of oral meclizine, yet is still feeling some dizziness when I saw him. He will be admitted for work-up for stroke as well as chest pain to rule out acute coronary syndrome. Principal Diagnosis Dizziness-suspected vestibular neuronitis Chest pain-noncardiac Discharge Exam Constitutional WD/WN, vitals as above Eyes EOM intact bilaterally; no anisocoria and no nystagmus ENMT external ear and nose normal, oropharynx normal Ears: no hearing impairment Neck trachea midline, no thyromegaly + abnormal visual inspection (Incisional scar right anterior neck well-healed) Respiratory normal respiratory effort, lungs clear to auscultation Cardiovascular RRR, no murmur, no edema Chest (Breasts) Chest: normal inspection of chest Gastrointestinal (Abdomen) normal bowel sounds, soft, nontender, no hepatosplenomegaly Musculoskeletal Extremities: extremities normal to inspection; no cyanosis and no clubbing Skin no rashes, warm and dry Neurologic moves all extremities and awake; no focal motor deficits and not confused Motor/Sensory: no tremor, no pronator drift and no sensory deficit Psychiatric A+Ox3, euthymic affect Lymphatic no lymphedema Discharge Data Allergies Allergy/AdvReac Type Severity Reaction Status Date / Time Sulfa (Sulfonamide Allergy Intermediate SEVERE Verified 07/25/21 14:53 Antibiotics) HIVES/ITCHING buspirone [From BuSpar] Allergy Unknown "I didnt Verified 07/25/21 14:53 tolerate well" sildenafil [From Viagra] AdvReac Intermediate "sets off Verified 07/25/21 14:53 my acid reflux" gabapentin AdvReac Drowsiness Verified 07/25/21 14:53 Consultations 07/25/21 16:08 ED Decision to Admit Stat Ordered Studies 07/25/21 14:25 CT head/brain wo con Stat 07/25/21 20:23 CT angio head w con Routine CT angio neck with con Routine 07/27/21 20:23 MR brain wo con Routine ECHO Hospital Course (1) Dizziness: Presents with vague lightheadedness versus dizziness and mild headache and possibly some sensory deficit of the left upper extremity that started on the morning of 07/25 Symptoms are now almost completely resolved after receiving meclizine and IV Ativan-but continued to have mild headache and mild dizziness, but left upper extremity sensory deficits are resolved. Does have risk factors for CVA to include age and HTN He also does have heavy alcohol use history and was drinking alcohol excessively the night before symptoms started. He did receive 2 L of normal saline which would provide hydration He also had a recent likely viral upper respiratory infection and perhaps this is some sort of vestibular neuronitis Nonetheless, he was admitted for further work-up for CVA CT head noncontrast negative CT angiogram head and neck with less than 50% stenosis of bilateral ICAs, otherwise normal Echocardiogram with bubble study negative Sinus rhythm on telemetry thus far Orthostatics are negative His recent implantation of hypoglossal nerve stimulator delayed obtaining an MRI for 2 days-finally got MRI brain and was negative for stroke Given that Symptoms lasted for 48 hours and MRI negative, rules out TIA or stroke SUpect vestibular neuronitis, now resolved Excessive EtOH use may also have contributed -Given carotid artery stenosis bilat--> started aspirin 81 mg daily and increased atorvastatin to 40 mg daily-lipid panel with elevated triglycerides, but otherwise acceptable -hemoglobin A1c 6.1% in prediabetes range -Strongly recommended significant reduction in amount of alcohol use daily for stroke risk reduction -BP control to be followed as outpt-again, recommend cutting down on EtOH intake (2) Substernal chest pain: Was somewhat vague as per patient and was associated with tingling all over his body while he was having the episode of dizziness as above He does have known significant esophageal dysmotility and chronic cough, perhaps it was some reflux Serial troponins negative x3, ECG normal, echocardiogram without ischemic wall motion normalities and with preserved EF Chest x-ray negative Not hypoxic and D-dimer negative Continue home PPI twice daily Encouraged significant reduction in amount of alcohol use daily (3) Near syncope: Related to lightheadedness as above Now resolved Orthostatics negative Ambulating halls and no problems prior to discharge (4) Cervicalgia: Chronic Gets EVIN from pain management (5) Prediabetes: hemoglobin A1c 6.1%, stable from previous cut down on EtOH intake and follow low carb diet (6) Obstructive sleep apnea: He was intolerant to CPAP and is now with recent hypoglossal nerve stimulator (Inspire) implanted on 06/03/2021 and managed by ENT at [place] He has a remote control to turn it on each night when he goes to sleep (7) Hypertension: Blood pressures elevated initially, now improved continue Amlodipine f/u with PCP (8) Hypercholesterolemia: Lipid panel with elevated triglycerides as above, LDL and HDL controlled Encouraged to cut down on alcohol use Continue atorvastatin but increase to high intensity of 40 mg daily (9) Gastroesophageal reflux disease: With esophageal dysmotility as above Continue PPI twice daily (10) Hypomagnesemia: Magnesium low at 1.6 on arrival Replaced and normal after that DVT prophylaxis-Lovenox SQ, SCDs Disposition-dc to home PT/OT consults recommend home with out services Full code, but would not want prolonged life support if with poor prognosis/vegetative state Total Time Total Time Spent Total Time Spent (In Minutes): 35 min Discharge Plan Discharge Items Patient Disposition: Home - Self-Care Reason For Visit: Chest Pain Discharge Diagnosis: Chest [id number] related to GERD Dizziness-stroke and TIA (mini stroke) ruled out Condition on Discharge: Good Activity: Resume your previous activity Non-emergency contact: Primary Care Provider Call non-emergency contact if: you have any medication questions and your symptoms worsen Follow-up/Referrals: Josette Suazo MD [Primary Care Provider] - (Follow up within 1 week) Diet: Heart Healthy Addtl Attending Provider Instructions: You were admitted with dizziness which is now resolved. You had a workup for stroke which was negative, brain MRI normal. You did have less than 50% blockage of plaque build up in your carotid arteries of the neck which should be followed over time. You can take a baby aspirin 81mg daily and increase your dose of your atorvastatin to 40mg for this to prevent worsening plaque build up which prevents stroke. Your workup of the heart was normal and you did not have a heart attack. The dizziness may be related to an inner ear issue from your recent cold that you had. It is recommended that you cut down on the amount of whiskey or any alcohol that you drink on a daily basis. Pending Studies at Discharge: No Stand-Alone Forms: My [facility] Contemporary Analysis, Smoking Cessation Medications and DC Order Prescriptions: New atorvastatin 40 mg Tablet 40 mg PO HS Qty: 30 RF: 0 aspirin 81 mg Tablet,Delayed Release (Dr/Ec) 81 mg PO QAM Qty: 30 RF: 0 Continued amlodipine 10 mg tablet 10 mg PO QAM Qty: 90 RF: 3 lansoprazole 30 mg capsule,delayed release(DR/EC) 30 mg PO BID Qty: 180 RF: 3 glucosamine sulfate [Glucosamine] 500 mg Tablet 2 tab PO HS RF: 0 cholecalciferol (vitamin D3) 2,000 unit Tablet 2,000 unit PO QAM RF: 0 Fiber (dextrin) 3 gram/3.5 gram powder 3 g PO QAM RF: 0 Discontinued atorvastatin 20 mg tablet 20 mg PO HS Qty: 90 RF: 3 Discharge Orders: Discharge Order (Routine); Ordered 07/27/21 Ordered By: Tori Michael Admission Data Admit Date/Time: 07/25/21 17:55 Attending Provider: Tori Michael Admit Provider: Tori Michael Primary Care Provider: Josette Suazo V. Other Providers: Tori Mihcael Coding Level of Care Code 42248 OBS Care - Discharge Diagnoses Dizziness R42 Substernal chest pain R07.2 Near syncope R55 Cervicalgia M54.2 Prediabetes R73.03 Obstructive sleep apnea G47.33 Hypertension I10 Hypercholesterolemia E78.00 Gastroesophageal reflux disease K21.9 Hypomagnesemia E83.42
== END 2021-07-27 16:57 | disposition home or self-care (01) ==
LOC: 2N 13:14 → ED 13:14 → 2N 18:40 → 2W 07-27 06:12